=== PATIENT | female | born 1950 | race Caucasian/White ===

== ENCOUNTER 2018-05-26 14:53 | Inpatient (IN) | payer MEDICARE, OTHER ==
[~2018-05-26] VITALS: Ht 152.4 cm; Wt 68.3 kg
[2018-05-26] MEDS ORDERED: MAG HYDROX/AL HYDROX/SIMETH 30 ML ORAL.SUSP PO PRN (15:45)
[2018-05-26] MEDS ORDERED: MAGNESIUM HYDROXIDE 2,400 MG/30 ML ORAL.SUSP. PO PRN (15:45)
[2018-05-26] MEDS ORDERED: METHYL SALICYLATE/MENTHOL TOPICAL OINTMENT 29GM TUBE. TP PRN (15:45)
[2018-05-26 16:20] VITALS: BP 114/63
[2018-05-26 16:40] VITALS: BP 109/73
[2018-05-26] MEDS ORDERED: NON FORMULARY ITEM (Menthol (Biofreeze) 118 ML) TP PRN (17:00)
[2018-05-26 17:08] LABS: BASO % 0 % (0-3); EOS # 0.1 x10^3/uL (0.0-0.7); EOS % 1 % (0-3); HEMATOCRIT 26.8 % (36.0-47.0); HEMOGLOBIN 8.3 g/dL (12.0-15.5); LYMPH # 0.8 x10^3/uL (1.0-4.8); LYMPH % 9 % (24-48); MEAN CORPUSCULAR HEMOGLOBIN 25 pg (25-35); MEAN CORPUSCULAR HGB CONC 31 g/dL (31-37); MEAN CORPUSCULAR VOLUME 81 fL (79-100); MONO # 0.7 x10^3/uL (0.0-1.1); MONO % 8 % (0-9); NEUT # 7.1 x10^3uL (1.8-7.7); NEUT % 81 % (31-73); PLATELET COUNT 415 x10^3/uL (140-400); RED BLOOD COUNT 3.32 x10^6/uL (3.50-5.40); RED CELL DISTRIBUTION WIDTH 16.9 % (11.5-14.5); WHITE BLOOD COUNT 8.7 x10^3/uL (4.0-11.0)
[2018-05-26 17:22] LABS: ALBUMIN 2.8 g/dL (3.4-5.0); ALBUMIN/GLOBULIN RATIO 0.8 (1.0-1.7); CALCIUM 8.6 mg/dL (8.5-10.1); CREATININE 0.6 mg/dL (0.6-1.0); GFR 99.7; MAGNESIUM 1.9 mg/dL (1.8-2.4); POTASSIUM 5.1 mmol/L (3.5-5.1); TOTAL BILIRUBIN 0.1 mg/dL (0.2-1.0); TOTAL PROTEIN 6.5 g/dL (6.4-8.2)
[2018-05-26] MEDS ORDERED: ONDA4TAB12 PO (17:30)
[2018-05-26] MEDS ORDERED: DIGO125T17 PO (17:30)
[2018-05-26] MEDS ORDERED: TRAZ-120 PO (17:30)
[2018-05-26] MEDS ORDERED: GUAI600T47 PO (17:30)
[2018-05-26] MEDS ORDERED: MEMA10TA PO (17:30)
[2018-05-26] MEDS ORDERED: LEVO50TA PO (17:30)
[2018-05-26] MEDS ORDERED: QUET50TA5 PO (17:30)
[2018-05-26] MEDS ORDERED: CLOP75TA PO (17:30)
[2018-05-26] MEDS ORDERED: SODI30SP NS (17:30)
[2018-05-26] MEDS ORDERED: DOCU-109 PO (17:30)
[2018-05-26] MEDS ORDERED: OMEP20TA63 PO (17:30)
[2018-05-26] MEDS ORDERED: FLUO40CA2 PO (17:30)
[2018-05-26] MEDS ORDERED: BENZ9GEL MM (17:30)
[2018-05-26] MEDS ORDERED: FLUT1DIS3 IH (17:30)
[2018-05-26] MEDS ORDERED: ASPI-630 PO (17:30)
[2018-05-26] MEDS ORDERED: VIT1CAPS12 PO (17:30)
[2018-05-26] MEDS ORDERED: MELA3TAB2 PO (17:30)
[2018-05-26] MEDS ORDERED: LORA5SOL43 PO (17:30)
[2018-05-26] MEDS ORDERED: DIVA500T2 PO (17:30)
[2018-05-26] MEDS ORDERED: GABA600T7 PO (17:30)
[2018-05-26] MEDS ORDERED: MENT118G TP (17:30)
[2018-05-26] MEDS ORDERED: LOPE2CAP PO (17:30)
[2018-05-26] MEDS ORDERED: CLON0.5T11 PO (17:30)
[2018-05-26] MEDS ORDERED: ATOR10TA60 PO (17:30)
[2018-05-26] MEDS ORDERED: FURO20TA3 PO (17:30)
[2018-05-26] MEDS ORDERED: TIOT4MIS5 IH (17:30)
[2018-05-26] MEDS ORDERED: DONE5TAB56 PO (17:30)
[2018-05-26] MEDS ORDERED: DOCUSATE SODIUM 100 MG CAPSULE PO PRN (17:45)
[2018-05-26] MEDS ORDERED: LOPERAMIDE 2 MG CAPSULE PO PRN (17:45)
[2018-05-26 17:49] LABS: VAL ACID 28 mcg/mL (50-100)
[2018-05-26 17:50] LABS: DIG 0.8 ng/dL (0.9-2.0)
[2018-05-26] MEDS ORDERED: MELATONIN 3 MG TABLET PO PRN (18:00)
[2018-05-26] MEDS ORDERED: ONDANSETRON ODT 4 MG TAB.RAPDIS PO PRN (18:00)
[2018-05-26] MEDS ORDERED: BENZOCAINE 20% ORAL GEL 11.9GM TUBE. MM PRN (18:15)
[2018-05-26] MEDS: BUDESONIDE 0.5 MG/2 ML NEBU NEB SCH (20:18)
[2018-05-26] MEDS: IPRATRPIUM/ALBUTEROL 0.5/2.5MG 3 ML NEBU. NEB SCH (20:18)
[2018-05-26] MEDS: DONEPEZIL HCL 5 MG TABLET. PO SCH (20:46)
[2018-05-26] MEDS: ATORVASTATIN CALCIUM 10 MG TABLET. PO SCH (20:46)
[2018-05-26] MEDS: DIVALPROEX SODIUM 250 MG TABLET.DR. PO SCH (20:46)
[2018-05-26] MEDS: traZODone 50 MG TABLET. PO SCH (20:46)
[2018-05-26] MEDS: QUEtiapine 50 MG TABLET. PO SCH (20:46)
[2018-05-26] MEDS: GABAPENTIN 300 MG CAPSULE. PO SCH (20:46)
[2018-05-26] MEDS: clonazePAM 0.5 MG TABLET PO SCH (20:47)
[2018-05-26] MEDS ORDERED: NON FORMULARY ITEM (Fluticasone/Salmeterol (Advair 250-50 Diskus) 1 EACH) IH SCH (21:00)
--- NOTE | 2018-05-26 22:49 | PDOC ---
Exam Note: Efren Note: Please also refer to the separate dictated note~for this date of service dictated separately. Discussed the patient with Nursing staff reviewed the chart.~Reviewed interim history and current functioning. Reviewed vital signs,~ Labs/ Radiology~and current medications noted below. Continue current treatment with the changes noted in the dictated addendum note Assessment: Vital Signs: Vital Signs Date Time Temp Pulse Resp B/P (MAP) Pulse Ox O2 Delivery O2 Flow Rate FiO2 05/26/18 20:24 99 Nasal Cannula 2.0 05/26/18 16:40 98.6 74 21 109/73 (85) Labs: Laboratory Tests Test 05/26/18 16:50 05/26/18 16:55 White Blood Count 8.7 x10^3/uL (4.0-11.0) Red Blood Count 3.32 x10^6/uL (3.50-5.40) L Hemoglobin 8.3 g/dL (12.0-15.5) L Hematocrit 26.8 % (36.0-47.0) L Mean Corpuscular Volume 81 fL (79-100) Mean Corpuscular Hemoglobin 25 pg (25-35) Mean Corpuscular Hemoglobin Concent 31 g/dL (31-37) Red Cell Distribution Width 16.9 % (11.5-14.5) H Platelet Count 415 x10^3/uL (140-400) H Neutrophils (%) (Auto) 81 % (31-73) H Lymphocytes (%) (Auto) 9 % (24-48) L Monocytes (%) (Auto) 8 % (0-9) Eosinophils (%) (Auto) 1 % (0-3) Basophils (%) (Auto) 0 % (0-3) Neutrophils # (Auto) 7.1 x10^3uL (1.8-7.7) Lymphocytes # (Auto) 0.8 x10^3/uL (1.0-4.8) L Monocytes # (Auto) 0.7 x10^3/uL (0.0-1.1) Eosinophils # (Auto) 0.1 x10^3/uL (0.0-0.7) Basophils # (Auto) 0.0 x10^3/uL (0.0-0.2) Sodium Level 138 mmol/L (136-145) Potassium Level 5.1 mmol/L (3.5-5.1) Chloride Level 99 mmol/L (98-107) Carbon Dioxide Level 33 mmol/L (21-32) H Anion Gap 6 (6-14) Blood Urea Nitrogen 26 mg/dL (7-20) H Creatinine 0.6 mg/dL (0.6-1.0) Estimated GFR (Cockcroft-Gault) 99.7 BUN/Creatinine Ratio 43 (6-20) H Glucose Level 105 mg/dL (70-99) H Calcium Level 8.6 mg/dL (8.5-10.1) Magnesium Level 1.9 mg/dL (1.8-2.4) Total Bilirubin 0.1 mg/dL (0.2-1.0) L Aspartate Amino Transferase (AST) 13 U/L (15-37) L Alanine Aminotransferase (ALT) 21 U/L (14-59) Alkaline Phosphatase 115 U/L (46-116) Total Protein 6.5 g/dL (6.4-8.2) Albumin 2.8 g/dL (3.4-5.0) L Albumin/Globulin Ratio 0.8 (1.0-1.7) L Digoxin Level 0.8 ng/dL (0.9-2.0) L Digoxin Last Dose Date 05/26/2018 Digoxin Last Dose Time 1000 Valproic Acid Level 28 mcg/mL (50-100) L Valproic Acid Last Dose Date 05/26/2018 Valproic Acid Last Dose Time 0949 Current Medications: Meds: Current Medications Acetaminophen (Tylenol) 650 mg PRN Q6HRS PRN PO PAIN / TEMP; Start 05/26/18 at 15:45 Multi-Ingredient Ointment (Analgesic [place]) 1 elvin PRN QID PRN TP MUSCLE PAIN; Start 05/26/18 at 15:45 Al Hydroxide/Mg Hydroxide (Mylanta Plus Xs) 15 ml PRN AFTMEALHC PRN PO DYSPEPSIA; Start 05/26/18 at 15:45 Magnesium Hydroxide (Milk Of Magnesia) 2,400 mg PRN QHS PRN PO CONSTIPATION; Start 05/26/18 at 15:45 Clonazepam (KlonoPIN) 0.5 mg TID PO Last administered on 05/26/18at 20:47; Start 05/26/18 at 21:00 Clopidogrel Bisulfate (Plavix) 75 mg DAILY PO ; Start 05/27/18 at 09:00 Digoxin (Lanoxin) 125 mcg DAILY PO ; Start 05/27/18 at 09:00 Furosemide (Lasix) 20 mg DAILY PO ; Start 05/27/18 at 09:00 Guaifenesin (Mucinex Er) 600 mg BID PO Last administered on 05/26/18at 20:46; Start 05/26/18 at 21:00 Aspirin (Children'S Aspirin) 162 mg DAILYWBKFT PO ; Start 05/27/18 at 08:00 Atorvastatin Calcium (Lipitor) 10 mg QHS PO Last administered on 05/26/18at 20: 46; Start 05/26/18 at 21:00 Benzocaine (Ora-Jel Maximum) 1 elvin PRN Q4HRS PRN MM MOUTHL PAIN; Start at 18:15 Divalproex Sodium (Depakote) 250 mg BID PO Last administered on 05/26/18at 20:46 ; Start 05/26/18 at 21:00 Docusate Sodium (Colace) 100 mg PRN BID PRN PO CONSTIPATION; Start 05/26/18 at 17:45 Donepezil HCl (Aricept) 5 mg QHS PO Last administered on 05/26/18at 20:46; Start 05/26/18 at 21:00 Fluoxetine HCl (PROzac) 40 mg DAILY PO ; Start 05/27/18 at 09:00 Non-Formulary Medication (Fluticasone/ Salmeterol (Advair 250-50 Diskus)) 1 each Q12HR IH ; Start 05/26/18 at 21:00; Status UNV Gabapentin (Neurontin) 300 mg BID PO Last administered on 05/26/18at 20:46; Start 05/26/18 at 21:00 Levothyroxine Sodium (Synthroid) 50 mcg DAILY06 PO ; Start 05/27/18 at 06:00 Loperamide HCl (Imodium) 2 mg PRN Q6HRS PRN PO DIARRHEA; Start 05/26/18 at 17: 45 Cetirizine HCl (ZyrTEC) 5 mg DAILY PO ; Start 05/27/18 at 09:00 Melatonin 6 mg PRN QHS PRN PO INSOMNIA; Start 05/26/18 at 18:00 Memantine (Namenda) 10 mg DAILY PO ; Start 05/27/18 at 09:00 Non-Formulary Medication (Menthol (Biofreeze)) 118 ml PRN BID PRN TP MUSCLE PAIN; Start 05/26/18 at 17:00; Status UNV Pantoprazole Sodium (Protonix) 40 mg DAILYAC PO ; Start 05/27/18 at 07:30 Ondansetron HCl (Zofran Odt) 4 mg PRN TID PRN PO NAUSEA; Start 05/26/18 at 18: 00 Quetiapine Fumarate (SEROquel) 50 mg HS PO Last administered on 05/26/18at 20:46 ; Start 05/26/18 at 21:00 Sodium Chloride (Saline Mist Nasal) 1 elvin PRN TID PRN NS NASAL CONGESTION; Start 05/26/18 at 18:00 Non-Formulary Medication (Tiotropium [place] (Spiriva Respimat)) 1.25 mcg DAILY IH ; Start 05/27/18 at 09:00; Status UNV Trazodone HCl (Desyrel) 50 mg HS PO Last administered on 05/26/18at 20:46; Start 05/26/18 at 21:00 Multivitamins/ Minerals (I-Nba) 1 tab DAILY PO ; Start 05/27/18 at 09:00 Albuterol/ Ipratropium (Duoneb) 3 ml RTQID NEB Last administered on 05/26/18at 20:18; Start 05/26/18 at 20:00 Budesonide (Pulmicort) 0.5 mg RTBID NEB Last administered on 05/26/18at 20:18; Start 05/26/18 at 20:00 Albuterol Sulfate (Ventolin) 2.5 mg PRN Q6HRS PRN NEB SHORTNESS OF BREATH; Start 05/26/18 at 18:15 Active Scripts Active Reported Trazodone Hcl 50 Mg Tablet 50 Mg PO QHS Spiriva Respimat (Tiotropium [place]) 4 Gm Mist.inhal 1.25 Mcg IH DAILY Saline Nasal [place] (Sodium Chloride) 30 Ml [place] 1 Spr NS PRN TID PRN Seroquel (Quetiapine Fumarate) 50 Mg Tablet 50 Mg PO QHS Preservision Areds Softgel (Vit A/Vit C/Vit E/Zinc/Copper) 1 Each Capsule 1 Each PO BID Ondansetron Odt (Ondansetron) 4 Mg Tab.rapdis 4 Mg PO PRN TID PRN Prilosec Otc (Omeprazole Magnesium) 20 Mg Tablet.dr 20 Mg PO DAILY06 Loratadine 5 Mg/5 Ml Solution 5 Mg PO DAILY Loperamide (Loperamide Hcl) 2 Mg Capsule 2 Mg PO PRN Q6HRS PRN Synthroid (Levothyroxine Sodium) 50 Mcg Tablet 50 Mcg PO DAILY06 Mucinex (Guaifenesin) 600 Mg Tablet.er 600 Mg PO BID Gabapentin 600 Mg Tablet 300 Mg PO BID Furosemide 20 Mg Tablet 20 Mg PO DAILY Advair 250-50 Diskus (Fluticasone/Salmeterol) 1 Each Disk.w.dev 1 Each IH Q12HR Aricept (Donepezil Hcl) 5 Mg Tablet 5 Mg PO QHS Colace (Docusate Sodium) 100 Mg Capsule 100 Mg PO PRN BID PRN Depakote (Divalproex Sodium) 500 Mg Tablet.dr 250 Mg PO BID Digoxin 125 Mcg Tablet 125 Mcg PO DAILY Clopidogrel (Clopidogrel Bisulfate) 75 Mg Tablet 75 Mg PO DAILY Clonazepam 0.5 Mg Tablet 0.5 Mg PO TID Atorvastatin Calcium 10 Mg Tablet 10 Mg PO QHS Aspirin 81 Mg Tab.chew 162 Mg PO DAILY Anbesol (Benzocaine) 9 Gm Gel..gram. 9 Gm MM PRN Q4HRS PRN Namenda (Memantine Hcl) 10 Mg Tablet 10 Mg PO DAILY Fluoxetine Hcl 40 Mg Capsule 40 Mg PO DAILY Biofreeze (Menthol) 118 Ml Gel..ml. 118 Ml TP PRN BID PRN Melatonin 3 Mg Tablet 5 Mg PO PRN QHS PRN I have reviewed the current psychotropics carefully including drug interactions. Risk benefit ratio favors no change other than as noted in my dictated progress note. Diagnosis: Problems: (1) Anxiety disorder (2) Bipolar affective, mixed (3) Bipolar affective, mixed, sev w/ psych (4) Impulse control disorder (5) Major depressive disorder, recurrent episode LISA KEY MD May 26, 2018 22:49
[2018-05-27 04:08] LABS: THYROXINE 6.1 ug/dL (4.5-12.0)
[2018-05-27 05:12] LABS: HEMOGLOBIN A1C 5.4 % (4.8-5.6)
[2018-05-27] MEDS: IPRATRPIUM/ALBUTEROL 0.5/2.5MG 3 ML NEBU. NEB SCH ×4 (05:34→20:40)
[2018-05-27] MEDS: LEVOTHYROXINE 50 MCG TABLET PO SCH (05:48)
[2018-05-27] MEDS: ACETAMINOPHEN 325 MG TABLET PO PRN ×3 (05:52→20:41)
[2018-05-27 06:12] VITALS: BP 108/71
[2018-05-27] MEDS: SODIUM CHLORIDE 0.65% NASAL SPRAY 45ML BOTTLE. NS PRN ×2 (08:45→20:41)
[2018-05-27] MEDS: PANTOPRAZOLE 40 MG TABLET. PO SCH (08:50)
[2018-05-27] MEDS: ASPIRIN 81 MG TAB.CHEW PO SCH ×2 (08:50→10:07)
[2018-05-27] MEDS ORDERED: TIOTROPIUM BROMIDE 1.25 MCG IH SCH (09:00)
[2018-05-27] MEDS: GABAPENTIN 300 MG CAPSULE. PO SCH ×2 (09:00→20:02)
[2018-05-27] MEDS: clonazePAM 0.5 MG TABLET PO SCH ×3 (09:00→20:02)
[2018-05-27] MEDS: DIVALPROEX SODIUM 250 MG TABLET.DR. PO SCH ×2 (10:06→20:01)
[2018-05-27] MEDS: DIGOXIN 125 MCG TABLET PO SCH (10:06)
[2018-05-27] MEDS: CLOPIDOGREL BISULFATE 75 MG TABLET PO SCH (10:06)
[2018-05-27] MEDS: CETIRIZINE HCL 10 MG TABLET PO SCH (10:07)
[2018-05-27] MEDS: MULTIVITAMIN I-VITE TABLET. PO SCH (10:07)
[2018-05-27] MEDS: FUROSEMIDE 20 MG TABLET PO SCH (10:07)
[2018-05-27] MEDS: MEMANTINE 10 MG TABLET. PO SCH (10:07)
[2018-05-27] MEDS: FLUoxetine HCL 20 MG CAPSULE PO SCH (10:07)
[2018-05-27] MEDS: BUDESONIDE 0.5 MG/2 ML NEBU NEB SCH ×2 (11:26→20:40)
[2018-05-27] MEDS: ALBUTEROL SULFATE 2.5 MG/3 ML NEBU. NEB PRN (11:26)
[2018-05-27 13:45] LABS: THYROID STIM HORMONE (TSH) 2.074 uIU/mL (0.358-3.740)
[2018-05-27 16:03] VITALS: BP 115/78
[2018-05-27 17:45] LABS: BILIRUBIN,URINE NEG (NEG); CLARITY,URINE CLOUDY; COLOR,URINE AMBER; GLUCOSE,URINE NEG (NEG); NITRITE,URINE NEG (NEG); UROBILINOGEN,URINE 0.2 mg/dL (0.2 mg/dL)
[2018-05-27 17:46] LABS: BACTERIA,URINE 0 /HPF (0-FEW); RBC,URINE TNTC /HPF (0-2); SQUAMOUS EPITHELIAL CELL,UR FEW /LPF
--- NOTE | 2018-05-27 18:44 | HP ---
ADMIT DATE: 05/26/2018 PSYCHIATRIC ADMISSION HISTORY/EVALUATION This late entry 05/26/2018 covers elements not covered in my initial note. I met with the patient in the evening of 05/26/2018 around 7:00 p.m. Discussed with nursing staff, reviewed the chart. IDENTIFYING DATA: The patient is a 68-year-old female referred to us from [facility] where she was on the postsurgical floor since 05/17/2018. She has been increasingly anxious, having suicidal ideation. She felt helpless, hopeless, worthless; no one was listening to her. She had failed outpatient psychiatric interventions and due to suicidal ideation was deemed a potential danger to herself, referred for inpatient psychiatric stabilization and admitted by Travisfito Merritt, her half-brother, CRISTOBAL. CHIEF COMPLAINT: "I have a lot of anxiety. I have bipolar disorder diagnosed about 15 years ago." HISTORY OF PRESENT ILLNESS: The patient reportedly has a history of bipolar disorder and marked exacerbation of anxiety recently. She had been living at [facility] and felt the staff there was not providing adequate care for her, not listening to "me." She additionally states she has PTSD and obsessive compulsive disorder. She complains of sleep and appetite disturbance. No clear psychotic symptoms, homicidal ideation. She does admit to history of mood swings and some memory deficits. PAST PSYCHIATRIC HISTORY: As noted above. PAST MEDICAL HISTORY: Positive for atrial fibrillation, anemia, asthma, chronic kidney disease stage 3, COPD, history of CVA, hypertension, sleep apnea, PTSD. ALLERGIES: CEPHALOSPORINS, DEMEROL, KEFLEX, METOCLOPRAMIDE, PHENERGAN, FENTANYL. CODE STATUS: FULL CODE. DIET: Mechanical soft, ambulates in wheelchair. UA is pending results. CURRENT PSYCHOTROPICS: Prozac 40 mg a day, melatonin 6 mg at bedtime p.r.n., Namenda 10 mg a day, Klonopin 0.5 mg t.i.d., Depakote 250 b.i.d., Aricept 5 mg a day, Neurontin 300 b.i.d., Seroquel 50 mg at bedtime, trazodone 50 mg at bedtime. FAMILY HISTORY: Noncontributory. SOCIAL HISTORY: No history of alcohol, drug abuse, physical, sexual or elder abuse. She is not known to be a perpetrator. REACTION TO HOSPITALIZATION: The patient accepting of this. ASSETS: Supportive family, stable living at the assisted living. MENTAL STATUS EXAM: The patient was seen individually in the evening of 05/26/2018. She is oriented to herself and situation. She is quite anxious, restless, somewhat tremulous. Speech coherent, has some latency. Abstraction fair, computation impaired, language function intact, attention span short. Mood and affect depressed, anxious, labile. She denies active suicidal ideation. She does have some short-term memory deficits. IMPRESSION: Probable bipolar 1 disorder, depressed; anxiety disorder, unspecified; cognitive disorder, unspecified; history of post-traumatic stress disorder. Rest diagnoses as noted above. PLAN: Admit to geropsychiatry unit at [facility]. I will see the patient daily individually from a psychiatric standpoint, medical followup with Dr. Boateng. Continue the patient on her current psychotropics. We will get past psychiatric records, observe baseline, then make further adjustments as clinically indicated. Estimated length of stay 10-12 days. DISPOSITION PLAN: Possibly back to the assisted living. MAN Amberly KEY MD DR: ADELFO/diana JOB#: [id number] / [id number]
[2018-05-27] MEDS: DONEPEZIL HCL 5 MG TABLET. PO SCH (20:01)
[2018-05-27] MEDS: QUEtiapine 50 MG TABLET. PO SCH (20:01)
[2018-05-27] MEDS: traZODone 50 MG TABLET. PO SCH (20:01)
[2018-05-27] MEDS: ATORVASTATIN CALCIUM 10 MG TABLET. PO SCH (20:02)
--- NOTE | 2018-05-27 22:34 | PDOC ---
Exam Note: Efren Note: Please also refer to the separate dictated note~for this date of service dictated separately.~Patient seen individually. Discussed the patient with Nursing staff reviewed the chart.~Reviewed interim history and current functioning. Reviewed vital signs,~Labs/ Radiology~and current medications noted below. Continue current treatment with the changes noted in the dictated addendum note Assessment: Vital Signs: Vital Signs Date Time Temp Pulse Resp B/P (MAP) Pulse Ox O2 Delivery O2 Flow Rate FiO2 05/27/18 16:45 100 Nasal Cannula 2.0 05/27/18 16:03 97.7 90 20 115/78 (90) I&O Intake and Output 05/27/18 07:00 Intake Total 360 ml Balance 360 ml Intake Oral 360 ml Labs: Laboratory Tests Test 05/27/18 16:50 Urine Collection Type Unknown Urine Color Kay Urine Clarity Cloudy Urine pH 7.0 Urine Specific [place] 1.025 Urine Protein >100 mg/dl (NEG-TRACE) Urine Glucose (UA) Neg mg/dL (NEG) Urine Ketones (Stick) Neg mg/dL (NEG) Urine Blood Large (NEG) Urine Nitrite Neg (NEG) Urine Bilirubin Neg (NEG) Urine Urobilinogen Dipstick 0.2 mg/dL (0.2 mg/dL) Urine Leukocyte Esterase Neg (NEG) Urine RBC Tntc /HPF (0-2) Urine WBC 5-10 /HPF (0-4) Urine Squamous Epithelial Cells Few /LPF Urine Bacteria 0 /HPF (0-FEW) Current Medications: Meds: Current Medications Acetaminophen (Tylenol) 650 mg PRN Q6HRS PRN PO PAIN / TEMP Last administered on 05/27/18at 20:41; Start 05/26/18 at 15:45 Multi-Ingredient Ointment (Analgesic [place]) 1 elvin PRN QID PRN TP MUSCLE PAIN; Start 05/26/18 at 15:45 Al Hydroxide/Mg Hydroxide (Mylanta Plus Xs) 15 ml PRN AFTMEALHC PRN PO DYSPEPSIA; Start 05/26/18 at 15:45 Magnesium Hydroxide (Milk Of Magnesia) 2,400 mg PRN QHS PRN PO CONSTIPATION; Start 05/26/18 at 15:45 Clonazepam (KlonoPIN) 0.5 mg TID PO Last administered on 05/27/18at 20:02; Start 05/26/18 at 21:00 Clopidogrel Bisulfate (Plavix) 75 mg DAILY PO Last administered on 05/27/18 10 :06; Start 05/27/18 at 09:00 Digoxin (Lanoxin) 125 mcg DAILY PO Last administered on 05/27/18 10:06; Start 05/27/18 at 09:00 Furosemide (Lasix) 20 mg DAILY PO Last administered on 05/27/18 10:07; Start 05/27/18 at 09:00 Guaifenesin (Mucinex Er) 600 mg BID PO Last administered on 05/27/18 20:01; Start 05/26/18 at 21:00 Aspirin (Children'S Aspirin) 162 mg DAILYWBKFT PO Last administered on 10:07; Start 05/27/18 at 08:00 Atorvastatin Calcium (Lipitor) 10 mg QHS PO Last administered on 05/27/18 20: 02; Start 05/26/18 at 21:00 Benzocaine (Ora-Jel Maximum) 1 elvin PRN Q4HRS PRN MM MOUTHL PAIN; Start at 18:15 Divalproex Sodium (Depakote) 250 mg BID PO Last administered on 05/27/18 20:01 ; Start 05/26/18 at 21:00 Docusate Sodium (Colace) 100 mg PRN BID PRN PO CONSTIPATION; Start 05/26/18 at 17:45 Donepezil HCl (Aricept) 5 mg QHS PO Last administered on 05/27/18 20:01; Start 05/26/18 at 21:00 Fluoxetine HCl (PROzac) 40 mg DAILY PO Last administered on 05/27/18 10:07; Start 05/27/18 at 09:00 Non-Formulary Medication (Fluticasone/ Salmeterol (Advair 250-50 Diskus)) 1 each Q12HR IH ; Start 05/26/18 at 21:00; Status UNV Gabapentin (Neurontin) 300 mg BID PO Last administered on 05/27/18at 20:02; Start 05/26/18 at 21:00 Levothyroxine Sodium (Synthroid) 50 mcg DAILY06 PO Last administered on at 05:48; Start 05/27/18 at 06:00 Loperamide HCl (Imodium) 2 mg PRN Q6HRS PRN PO DIARRHEA; Start 05/26/18 at 17: 45 Cetirizine HCl (ZyrTEC) 5 mg DAILY PO Last administered on 05/27/18 10:07; Start 05/27/18 at 09:00 Melatonin 6 mg PRN QHS PRN PO INSOMNIA; Start 05/26/18 at 18:00 Memantine (Namenda) 10 mg DAILY PO Last administered on 05/27/18 10:07; Start 05/27/18 at 09:00 Non-Formulary Medication (Menthol (Biofreeze)) 118 ml PRN BID PRN TP MUSCLE PAIN; Start 05/26/18 at 17:00; Status UNV Pantoprazole Sodium (Protonix) 40 mg DAILYAC PO Last administered on 05/27/18 08:50; Start 05/27/18 at 07:30 Ondansetron HCl (Zofran Odt) 4 mg PRN TID PRN PO NAUSEA; Start 05/26/18 at 18: 00 Quetiapine Fumarate (SEROquel) 50 mg HS PO Last administered on 05/27/18 20:01 ; Start 05/26/18 at 21:00 Sodium Chloride (Saline Mist Nasal) 1 elvin PRN TID PRN NS NASAL CONGESTION Last administered on 05/27/18 20:41; Start 05/26/18 at 18:00 Non-Formulary Medication (Tiotropium [place] (Spiriva Respimat)) 1.25 mcg DAILY IH ; Start 05/27/18 at 09:00; Status UNV Trazodone HCl (Desyrel) 50 mg HS PO Last administered on 05/27/18 20:01; Start 05/26/18 at 21:00 Multivitamins/ Minerals (I-Nba) 1 tab DAILY PO Last administered on 05/27/18 10:07; Start 05/27/18 at 09:00 Albuterol/ Ipratropium (Duoneb) 3 ml RTQID NEB Last administered on 05/27/18 16:45; Start 05/26/18 at 20:00 Budesonide (Pulmicort) 0.5 mg RTBID NEB Last administered on 05/27/18 11:26; Start 05/26/18 at 20:00 Albuterol Sulfate (Ventolin) 2.5 mg PRN Q6HRS PRN NEB SHORTNESS OF BREATH; Start 05/26/18 at 18:15 Active Scripts Active Reported Trazodone Hcl 50 Mg Tablet 50 Mg PO QHS Spiriva Respimat (Tiotropium [place]) 4 Gm Mist.inhal 1.25 Mcg IH DAILY Saline Nasal [place] (Sodium Chloride) 30 Ml [place] 1 Spr NS PRN TID PRN Seroquel (Quetiapine Fumarate) 50 Mg Tablet 50 Mg PO QHS Preservision Areds Softgel (Vit A/Vit C/Vit E/Zinc/Copper) 1 Each Capsule 1 Each PO BID Ondansetron Odt (Ondansetron) 4 Mg Tab.rapdis 4 Mg PO PRN TID PRN Prilosec Otc (Omeprazole Magnesium) 20 Mg Tablet.dr 20 Mg PO DAILY06 Loratadine 5 Mg/5 Ml Solution 5 Mg PO DAILY Loperamide (Loperamide Hcl) 2 Mg Capsule 2 Mg PO PRN Q6HRS PRN Synthroid (Levothyroxine Sodium) 50 Mcg Tablet 50 Mcg PO DAILY06 Mucinex (Guaifenesin) 600 Mg Tablet.er 600 Mg PO BID Gabapentin 600 Mg Tablet 300 Mg PO BID Furosemide 20 Mg Tablet 20 Mg PO DAILY Advair 250-50 Diskus (Fluticasone/Salmeterol) 1 Each Disk.w.dev 1 Each IH Q12HR Aricept (Donepezil Hcl) 5 Mg Tablet 5 Mg PO QHS Colace (Docusate Sodium) 100 Mg Capsule 100 Mg PO PRN BID PRN Depakote (Divalproex Sodium) 500 Mg Tablet.dr 250 Mg PO BID Digoxin 125 Mcg Tablet 125 Mcg PO DAILY Clopidogrel (Clopidogrel Bisulfate) 75 Mg Tablet 75 Mg PO DAILY Clonazepam 0.5 Mg Tablet 0.5 Mg PO TID Atorvastatin Calcium 10 Mg Tablet 10 Mg PO QHS Aspirin 81 Mg Tab.chew 162 Mg PO DAILY Anbesol (Benzocaine) 9 Gm Gel..gram. 9 Gm MM PRN Q4HRS PRN Namenda (Memantine Hcl) 10 Mg Tablet 10 Mg PO DAILY Fluoxetine Hcl 40 Mg Capsule 40 Mg PO DAILY Biofreeze (Menthol) 118 Ml Gel..ml. 118 Ml TP PRN BID PRN Melatonin 3 Mg Tablet 5 Mg PO PRN QHS PRN I have reviewed the current psychotropics carefully including drug interactions. Risk benefit ratio favors no change other than as noted in my dictated progress note. Diagnosis: Problems: (1) Anxiety disorder (2) Bipolar affective, mixed (3) Bipolar affective, mixed, sev w/ psych (4) Impulse control disorder (5) Major depressive disorder, recurrent episode LISA KEY MD May 27, 2018 22:34
--- NOTE | 2018-05-28 00:08 | CONS ---
DATE OF CONSULTATION: 05/27/2018 REASON FOR CONSULTATION: Medical management. HISTORY OF PRESENT ILLNESS: The patient is a 68-year-old female patient, a resident at [facility]isted [facility] Facility in [place], who was admitted [facility] on the account of being markedly anxious, has suicidal ideation, feels like her Assisted Living Facility is not listening to her, depressed and apparently the psychotropic medication was adjusted without much success, and therefore, was admitted to [facility] for inpatient psychiatric stabilization. PAST PSYCHIATRIC HISTORY: Significant for bipolar disorder, generalized anxiety disorder. Medically, she has a multitude of medical problems including an episode of severe spontaneous epistaxis with acute blood loss anemia that required admission to the ICU and treatment with tranexamic acid and blood transfusion. She developed what seems to be angioneurotic edema with acute hypoxic respiratory failure requiring intubation and mechanical ventilation. The patient is also known to have chronic diastolic congestive heart failure, chronic kidney disease stage 3, chronic obstructive pulmonary disease, hypertension, gastroesophageal reflux disease, history of stroke without residual deficit. She has mixed hyperlipidemia, morbid obesity, obstructive sleep apnea, paroxysmal atrial fibrillation, primary osteoarthritis of the right knee, posttraumatic stress disorder, stress-induced cardiomyopathy and dysphagia. PAST SURGICAL HISTORY: Significant for gastric bypass surgery. She also has appendectomy, cholecystectomy and cardiac catheterization. FAMILY HISTORY: Positive for COPD in her mother, heart disease in her father, peripheral arterial disease in her father. SOCIAL HISTORY: The patient is single, never . She quit smoking about 19 years ago. She has never used smokeless tobacco. She does not drink alcohol or use any recreational drugs. ALLERGIES: SHE IS ALLERGIC TO CEPHALOSPORINS, CEPHALEXIN, FENTANYL, MEPERIDINE, METOCLOPRAMIDE AND PROMETHAZINE. MEDICATIONS: She is currently on following medications: She is on loratadine 5 mg/5 mL solution once a day, Aricept 5 mg at bedtime, Spiriva Respimat 1.5 mcg inhalation once a day, Plavix 75 mg once a day, digoxin 125 mcg once a day, atorvastatin calcium 10 mg daily at bedtime, aspirin 81 mg once a day, clonazepam 0.5 mg 3 times a day, divalproex sodium 500 mg twice a day, gabapentin 300 mg twice a day, fluoxetine 40 mg daily, trazodone 50 mg at bedtime, quetiapine fumarate for Seroquel 50 mg at bedtime, Namenda 10 mg daily, furosemide 20 mg daily, Advair Diskus 250/50 one inhalation twice a day, guaifenesin for Mucinex 600 mg twice a day, benzocaine applied topically every 4 hours, sodium chloride for saline nasal spray one spray to each nostril 3 times a day. She is on loperamide 2 mg every 6 hours as needed, docusate sodium 100 mg twice a day as needed, ondansetron 4 mg 3 times a day as needed, omeprazole for Prilosec OTC 20 mg once a day, levothyroxine sodium 50 mcg daily, melatonin 3 mg at bedtime and PreserVision AREDS Soft Gel one twice a day. PHYSICAL EXAMINATION: GENERAL: On examining her, she was sitting comfortably in her wheelchair, in no apparent respiratory distress. She was pale, but no jaundice or cyanosis. No lymphadenopathy, no thyromegaly. No jugular venous distention. No lower limb edema. VITAL SIGNS: Her heart rate was 90, blood pressure 115/78, temperature was 97.7, respiratory rate 20 and oxygen saturation was 97% on 2 liters of oxygen. HEAD, EYES, EARS, NOSE AND THROAT: Showed normocephalic, atraumatic. NECK: Supple. HEART: Showed normal first and second heart sounds with no gallop or murmur. CHEST: Clear to auscultation. No crepitation or rhonchi. ABDOMEN: Distended, soft, nontender. NEUROLOGIC: She was awake, alert, responding appropriately. All cranial nerves intact. She moves extremities without difficulty; however, she is mostly bedbound, wheelchair bound and walk for short distances only. LABORATORY DATA: Showed that her white cell count was 8700, hemoglobin 8.3, hematocrit 26.8, MCV 81 and platelet count of 415,000. Serum sodium was 138, potassium 5.1, chloride 99, bicarbonate 33, anion gap of 6, BUN 26, creatinine 0.6. Estimated GFR was 99 mL per minute. Her glucose 105, calcium was 8.6, magnesium was 1.9. Her serum iron is low at 17. Total iron binding capacity was high at 444 and percent saturation was 4. Her total bilirubin, AST, ALT, alkaline phosphatase were normal. Total protein was 6.5, albumin was 2.8. Her serum triglycerides was 151, total cholesterol 152, LDL cholesterol was 61, VLDL was 30, non-HDL cholesterol was 91, HDL cholesterol was 61 and the ratio was 2 and TSH and total T4 and free T4 were normal. Her urinalysis was unremarkable and showed that the urine was bryan, cloudy with a pH of 7, specific gravity of 1.025, there is more than 100 mg of protein, negative for glucose, ketones, large amount of blood, negative for nitrite and leukocyte esterase. There is too numerous to count rbc's, 5-10 wbc's and no bacteria and toxic screen showed that her digoxin was 0.8, which is well within normal range and valproic acid was low at 28. ASSESSMENT AND PLAN: In summary, this is a 68-year-old female patient, who was admitted on account of being extremely anxious, who has suicidal ideation, feels like her Assisted Living Facility is not listening to her, very depressed, has had medication adjustment done without much improvement. Medically, she has a multitude of medical problems including atrial fibrillation, anemia, bronchial asthma, chronic kidney disease, chronic obstructive pulmonary disease, hypertension, sleep apnea. Her lab work showed that she has severe iron deficiency anemia. Her hemoglobin was 8, hematocrit 26, probably because she lost large amount of blood during an episode of epistaxis. Her serum iron is low, total iron binding capacity high and TIBC was low, all consistent with iron deficiency anemia. She has also protein calorie malnutrition with serum albumin only 2.8 g/dL. My plan is to start her on serum iron and ascorbic acid. Unfortunately, she is on Plavix and aspirin, both of them are obviously can induce GI bleeding compounding the fact that she has lost a large amount of blood during an episode of epistaxis. I will check her stool for occult blood and will need some more information to know why she needs both the aspirin and Plavix as her medical problem did not show any evidence of coronary artery disease or stent deployment, although she does have a history of cerebrovascular accident without any residual deficit. Thank you Dr. Batista for allowing me to participate in the care of this patient. DELILAH LANCASTER MD DR: GEOFF/diana JOB#: [id number] / [id number]
[2018-05-28] MEDS: LEVOTHYROXINE 50 MCG TABLET PO SCH (05:45)
[2018-05-28 06:16] VITALS: BP 92/55
[2018-05-28] MEDS: IPRATRPIUM/ALBUTEROL 0.5/2.5MG 3 ML NEBU. NEB SCH ×4 (08:00→21:09)
[2018-05-28] MEDS: FUROSEMIDE 20 MG TABLET PO SCH (08:01)
[2018-05-28] MEDS: MEMANTINE 10 MG TABLET. PO SCH (08:01)
[2018-05-28] MEDS: CLOPIDOGREL BISULFATE 75 MG TABLET PO SCH (08:01)
[2018-05-28] MEDS: MULTIVITAMIN I-VITE TABLET. PO SCH (08:01)
[2018-05-28] MEDS: ASPIRIN 81 MG TAB.CHEW PO SCH (08:02)
[2018-05-28] MEDS: PANTOPRAZOLE 40 MG TABLET. PO SCH (08:02)
[2018-05-28] MEDS: FLUoxetine HCL 20 MG CAPSULE PO SCH (08:02)
[2018-05-28] MEDS: CETIRIZINE HCL 10 MG TABLET PO SCH (08:02)
[2018-05-28] MEDS: DIVALPROEX SODIUM 250 MG TABLET.DR. PO SCH ×2 (08:03→19:35)
[2018-05-28] MEDS: DIGOXIN 125 MCG TABLET PO SCH (08:03)
[2018-05-28] MEDS: clonazePAM 0.5 MG TABLET PO SCH ×3 (08:05→19:40)
[2018-05-28] MEDS: GABAPENTIN 300 MG CAPSULE. PO SCH ×2 (08:05→19:40)
[2018-05-28] MEDS: ACETAMINOPHEN 325 MG TABLET PO PRN ×2 (09:32→16:31)
[2018-05-28] MEDS: BUDESONIDE 0.5 MG/2 ML NEBU NEB SCH ×2 (11:30→21:09)
--- NOTE | 2018-05-28 14:05 | PN ---
DATE: 05/27/2018 PSYCHIATRIC PROGRESS NOTE This is a late entry 05/27/2018 covers elements not covered in my initial note. SUBJECTIVE: I met with the patient in the evening, staffed at a treatment team meeting with the entire team in the morning and reviewed the patient's history and progress. The patient slept 6 hours previous night. She does have some short-term cognitive deficits, but otherwise reasonably oriented. Reviewed her history, diagnosis, progress, prognosis, discharge plans. REVIEW OF SYSTEMS: Ambulation impaired, in wheelchair. No CV, , pulmonary, eye, ENT system symptoms on review. MENTAL STATUS EXAM: Oriented to herself and situation. Speech coherent, abstraction fair, computation impaired, language function intact. Attention span short. She remains quite anxious at times. LABORATORY DATA: Reviewed. IMPRESSION: Bipolar disorder, depressed; anxiety disorder, unspecified; cognitive disorder, unspecified. PLAN: Continue psychotropics from initial note. Melatonin, Prozac, Namenda, Klonopin, Depakote, Aricept, Neurontin, Seroquel, and trazodone. We will consider changing Prozac to Luvox for some of her obsessive anxiety, but give it another day and then decide. LISA KEY MD DR: ADELFO/diana JOB#: [id number] / [id number]
[2018-05-28 16:07] VITALS: BP 111/70
[2018-05-28] MEDS: ATORVASTATIN CALCIUM 10 MG TABLET. PO SCH (19:35)
[2018-05-28] MEDS: traZODone 50 MG TABLET. PO SCH (19:35)
[2018-05-28] MEDS: DONEPEZIL HCL 5 MG TABLET. PO SCH (19:35)
[2018-05-28] MEDS: QUEtiapine 50 MG TABLET. PO SCH (19:35)
[2018-05-28] MEDS: SODIUM CHLORIDE 0.65% NASAL SPRAY 45ML BOTTLE. NS PRN (19:51)
--- NOTE | 2018-05-28 22:40 | PDOC ---
Exam Note: Efren Note: Please also refer to the separate dictated note~for this date of service dictated separately.~Patient seen individually. Discussed the patient with Nursing staff reviewed the chart.~Reviewed interim history and current functioning. Reviewed vital signs,~Labs/ Radiology~and current medications noted below. Continue current treatment with the changes noted in the dictated addendum note Assessment: Vital Signs: Vital Signs Date Time Temp Pulse Resp B/P (MAP) Pulse Ox O2 Delivery O2 Flow Rate FiO2 05/28/18 20:15 96 Nasal Cannula 2.0 05/28/18 16:07 99.2 77 24 111/70 (84) I&O Intake and Output 05/28/18 07:00 Intake Total 1680 ml Balance 1680 ml Intake Oral 1680 ml Current Medications: Meds: Current Medications Acetaminophen (Tylenol) 650 mg PRN Q6HRS PRN PO PAIN / TEMP Last administered on 05/28/18at 16:31; Start 05/26/18 at 15:45 Multi-Ingredient Ointment (Analgesic [place]) 1 elvin PRN QID PRN TP MUSCLE PAIN; Start 05/26/18 at 15:45 Al Hydroxide/Mg Hydroxide (Mylanta Plus Xs) 15 ml PRN AFTMEALHC PRN PO DYSPEPSIA; Start 05/26/18 at 15:45 Magnesium Hydroxide (Milk Of Magnesia) 2,400 mg PRN QHS PRN PO CONSTIPATION; Start 05/26/18 at 15:45 Clonazepam (KlonoPIN) 0.5 mg TID PO Last administered on 05/28/18at 19:40; Start 05/26/18 at 21:00 Clopidogrel Bisulfate (Plavix) 75 mg DAILY PO Last administered on 05/28/18at 08 :01; Start 05/27/18 at 09:00 Digoxin (Lanoxin) 125 mcg DAILY PO Last administered on 05/28/18at 08:03; Start 05/27/18 at 09:00 Furosemide (Lasix) 20 mg DAILY PO Last administered on 05/28/18at 08:01; Start 05/27/18 at 09:00 Guaifenesin (Mucinex Er) 600 mg BID PO Last administered on 05/28/18at 19:35; Start 05/26/18 at 21:00 Aspirin (Children'S Aspirin) 162 mg DAILYWBKFT PO Last administered on 08:02; Start 05/27/18 at 08:00 Atorvastatin Calcium (Lipitor) 10 mg QHS PO Last administered on 05/28/18 19: 35; Start 05/26/18 at 21:00 Benzocaine (Ora-Jel Maximum) 1 elvin PRN Q4HRS PRN MM MOUTHL PAIN; Start at 18:15 Divalproex Sodium (Depakote) 250 mg BID PO Last administered on 05/28/18 19:35 ; Start 05/26/18 at 21:00 Docusate Sodium (Colace) 100 mg PRN BID PRN PO CONSTIPATION; Start 05/26/18 at 17:45 Donepezil HCl (Aricept) 5 mg QHS PO Last administered on 05/28/18 19:35; Start 05/26/18 at 21:00 Fluoxetine HCl (PROzac) 40 mg DAILY PO Last administered on 05/28/18 08:02; Start 05/27/18 at 09:00; Stop 05/28/18 at 17:13; Status DC Non-Formulary Medication (Fluticasone/ Salmeterol (Advair 250-50 Diskus)) 1 each Q12HR IH ; Start 05/26/18 at 21:00; Status UNV Gabapentin (Neurontin) 300 mg BID PO Last administered on 05/28/18 19:40; Start 05/26/18 at 21:00 Levothyroxine Sodium (Synthroid) 50 mcg DAILY06 PO Last administered on 05:45; Start 05/27/18 at 06:00 Loperamide HCl (Imodium) 2 mg PRN Q6HRS PRN PO DIARRHEA; Start 05/26/18 at 17: 45 Cetirizine HCl (ZyrTEC) 5 mg DAILY PO Last administered on 05/28/18 08:02; Start 05/27/18 at 09:00 Melatonin 6 mg PRN QHS PRN PO INSOMNIA Last administered on 05/28/18 19:40; Start 05/26/18 at 18:00 Memantine (Namenda) 10 mg DAILY PO Last administered on 05/28/18 08:01; Start 05/27/18 at 09:00 Non-Formulary Medication (Menthol (Biofreeze)) 118 ml PRN BID PRN TP MUSCLE PAIN; Start 05/26/18 at 17:00; Status UNV Pantoprazole Sodium (Protonix) 40 mg DAILYAC PO Last administered on 05/28/18at 08:02; Start 05/27/18 at 07:30 Ondansetron HCl (Zofran Odt) 4 mg PRN TID PRN PO NAUSEA; Start 05/26/18 at 18: 00 Quetiapine Fumarate (SEROquel) 50 mg HS PO Last administered on 05/28/18at 19:35 ; Start 05/26/18 at 21:00 Sodium Chloride (Saline Mist Nasal) 1 elvin PRN TID PRN NS NASAL CONGESTION Last administered on 05/28/18at 19:51; Start 05/26/18 at 18:00 Non-Formulary Medication (Tiotropium [place] (Spiriva Respimat)) 1.25 mcg DAILY IH ; Start 05/27/18 at 09:00; Status UNV Trazodone HCl (Desyrel) 50 mg HS PO Last administered on 05/28/18at 19:35; Start 05/26/18 at 21:00 Multivitamins/ Minerals (I-Nba) 1 tab DAILY PO Last administered on 05/28/18at 08:01; Start 05/27/18 at 09:00 Albuterol/ Ipratropium (Duoneb) 3 ml RTQID NEB Last administered on 05/28/18at 21:09; Start 05/26/18 at 20:00 Budesonide (Pulmicort) 0.5 mg RTBID NEB Last administered on 05/28/18at 21:09; Start 05/26/18 at 20:00 Albuterol Sulfate (Ventolin) 2.5 mg PRN Q6HRS PRN NEB SHORTNESS OF BREATH; Start 05/26/18 at 18:15 Duloxetine HCl (Cymbalta) 30 mg DAILY PO ; Start 05/29/18 at 09:00; Stop at 08:59 Duloxetine HCl (Cymbalta) 60 mg DAILY PO ; Start 06/01/18 at 09:00 Active Scripts Active Reported Trazodone Hcl 50 Mg Tablet 50 Mg PO QHS Spiriva Respimat (Tiotropium [place]) 4 Gm Mist.inhal 1.25 Mcg IH DAILY Saline Nasal [place] (Sodium Chloride) 30 Ml [place] 1 Spr NS PRN TID PRN Seroquel (Quetiapine Fumarate) 50 Mg Tablet 50 Mg PO QHS Preservision Areds Softgel (Vit A/Vit C/Vit E/Zinc/Copper) 1 Each Capsule 1 Each PO BID Ondansetron Odt (Ondansetron) 4 Mg Tab.rapdis 4 Mg PO PRN TID PRN Prilosec Otc (Omeprazole Magnesium) 20 Mg Tablet.dr 20 Mg PO DAILY06 Loratadine 5 Mg/5 Ml Solution 5 Mg PO DAILY Loperamide (Loperamide Hcl) 2 Mg Capsule 2 Mg PO PRN Q6HRS PRN Synthroid (Levothyroxine Sodium) 50 Mcg Tablet 50 Mcg PO DAILY06 Mucinex (Guaifenesin) 600 Mg Tablet.er 600 Mg PO BID Gabapentin 600 Mg Tablet 300 Mg PO BID Furosemide 20 Mg Tablet 20 Mg PO DAILY Advair 250-50 Diskus (Fluticasone/Salmeterol) 1 Each Disk.w.dev 1 Each IH Q12HR Aricept (Donepezil Hcl) 5 Mg Tablet 5 Mg PO QHS Colace (Docusate Sodium) 100 Mg Capsule 100 Mg PO PRN BID PRN Depakote (Divalproex Sodium) 500 Mg Tablet.dr 250 Mg PO BID Digoxin 125 Mcg Tablet 125 Mcg PO DAILY Clopidogrel (Clopidogrel Bisulfate) 75 Mg Tablet 75 Mg PO DAILY Clonazepam 0.5 Mg Tablet 0.5 Mg PO TID Atorvastatin Calcium 10 Mg Tablet 10 Mg PO QHS Aspirin 81 Mg Tab.chew 162 Mg PO DAILY Anbesol (Benzocaine) 9 Gm Gel..gram. 9 Gm MM PRN Q4HRS PRN Namenda (Memantine Hcl) 10 Mg Tablet 10 Mg PO DAILY Fluoxetine Hcl 40 Mg Capsule 40 Mg PO DAILY Biofreeze (Menthol) 118 Ml Gel..ml. 118 Ml TP PRN BID PRN Melatonin 3 Mg Tablet 5 Mg PO PRN QHS PRN I have reviewed the current psychotropics carefully including drug interactions. Risk benefit ratio favors no change other than as noted in my dictated progress note. Diagnosis: Problems: (1) Anxiety disorder (2) Bipolar affective, mixed (3) Bipolar affective, mixed, sev w/ psych (4) Impulse control disorder (5) Major depressive disorder, recurrent episode LISA KEY MD May 28, 2018 22:40
--- NOTE | 2018-05-29 05:09 | EKG ---
[address] [address] Test Date: 2018-05-29 Test Time: 04:44:17 Pat Name: JORDON GARCIA Department: Room: [address] [place] [address] Gender: F [employer]ke Operator [employer]: ANDREW : 1950 Requested By: LISA KEY Order Number: [id number] Reading MD: Joshua Concepcion MD Measurements Intervals [place] Rate: 77 P: NM: QRS: 0 QRSD: 82 T: 103 QT: 372 QTc: 423 Interpretive Statements PROBABLE SR NON-SPECIFIC ST/T CHANGES Electronically Signed On 05-31-2018 10:13:22 CDT by Joshua Concepcion MD
[2018-05-29] MEDS: ACETAMINOPHEN 325 MG TABLET PO PRN ×2 (05:29→20:26)
[2018-05-29] MEDS: LEVOTHYROXINE 50 MCG TABLET PO SCH (05:29)
[2018-05-29] MEDS: IPRATRPIUM/ALBUTEROL 0.5/2.5MG 3 ML NEBU. NEB SCH ×4 (05:32→21:05)
[2018-05-29 05:51] VITALS: BP 109/69
[2018-05-29] MEDS: MEMANTINE 10 MG TABLET. PO SCH (08:06)
[2018-05-29] MEDS: PANTOPRAZOLE 40 MG TABLET. PO SCH (08:06)
[2018-05-29] MEDS: DIVALPROEX SODIUM 250 MG TABLET.DR. PO SCH ×2 (08:06→20:12)
[2018-05-29] MEDS: FUROSEMIDE 20 MG TABLET PO SCH (08:06)
[2018-05-29] MEDS: CETIRIZINE HCL 10 MG TABLET PO SCH (08:07)
[2018-05-29] MEDS: DIGOXIN 125 MCG TABLET PO SCH (08:07)
[2018-05-29] MEDS: ASPIRIN 81 MG TAB.CHEW PO SCH (08:07)
[2018-05-29] MEDS: MULTIVITAMIN I-VITE TABLET. PO SCH (08:07)
[2018-05-29] MEDS: CLOPIDOGREL BISULFATE 75 MG TABLET PO SCH (08:08)
[2018-05-29] MEDS: DULoxetine HCL 30 MG CAPSULE.DR PO SCH (08:10)
[2018-05-29] MEDS: GABAPENTIN 300 MG CAPSULE. PO SCH ×2 (08:10→20:12)
[2018-05-29] MEDS: clonazePAM 0.5 MG TABLET PO SCH ×3 (08:11→20:12)
[2018-05-29] MEDS: BUDESONIDE 0.5 MG/2 ML NEBU NEB SCH ×2 (10:54→21:06)
--- NOTE | 2018-05-29 13:54 | PN ---
DATE: 05/28/2018 PSYCHIATRIC PROGRESS NOTE This late entry 05/28/2018 covers elements not covered in my initial note. SUBJECTIVE: I met with the patient in the evening. The patient slept 7-1/2 hours previous night. She continues to complain of some ongoing chronic pain symptoms and anxiety. There is some difficulty with breathing. No CV, , eye, ENT system symptoms on review. MENTAL STATUS EXAM: Reasonably oriented. Speech has some latency, coherent. Abstraction fair, computation impaired, language function intact, attention span short. Mood and affect, anxious, labile, somewhat depressed. LABORATORY DATA: Reviewed. IMPRESSION: Bipolar disorder, mixed with psychotic symptoms versus bipolar disorder, depressed; anxiety disorder, unspecified; impulse control disorder, unspecified. PLAN: The patient does have some chronic pain symptoms. We will change the Prozac 40 mg a day to Cymbalta 30 mg a day, increasing to 60 mg a day to help with the pain, mood and anxiety symptoms. Rest unchanged for now. LISA KEY MD DR: ADELFO/diana JOB#: [id number] / [id number]
[2018-05-29 16:24] VITALS: BP 102/69
[2018-05-29] MEDS: DONEPEZIL HCL 5 MG TABLET. PO SCH (20:12)
[2018-05-29] MEDS: ATORVASTATIN CALCIUM 10 MG TABLET. PO SCH (20:12)
[2018-05-29] MEDS: traZODone 50 MG TABLET. PO SCH (20:12)
[2018-05-29] MEDS: QUEtiapine 50 MG TABLET. PO SCH (20:13)
[2018-05-29] MEDS: SODIUM CHLORIDE 0.65% NASAL SPRAY 45ML BOTTLE. NS PRN (20:26)
--- NOTE | 2018-05-29 23:06 | PDOC ---
Exam Note: Efren Note: Please also refer to the separate dictated note~for this date of service dictated separately.~Patient seen individually. Discussed the patient with Nursing staff reviewed the chart.~Reviewed interim history and current functioning. Reviewed vital signs,~Labs/ Radiology~and current medications noted below. Continue current treatment with the changes noted in the dictated addendum note Assessment: Vital Signs: Vital Signs Date Time Temp Pulse Resp B/P (MAP) Pulse Ox O2 Delivery O2 Flow Rate FiO2 05/29/18 21:08 96 Nasal Cannula 2.0 05/29/18 16:24 98.7 85 20 102/69 (80) I&O Intake and Output 05/29/18 07:00 Intake Total 845 ml Balance 845 ml Intake Oral 845 ml Current Medications: Meds: Current Medications Acetaminophen (Tylenol) 650 mg PRN Q6HRS PRN PO PAIN / TEMP Last administered on 05/29/18at 20:26; Start 05/26/18 at 15:45 Multi-Ingredient Ointment (Analgesic [place]) 1 elvin PRN QID PRN TP MUSCLE PAIN; Start 05/26/18 at 15:45 Al Hydroxide/Mg Hydroxide (Mylanta Plus Xs) 15 ml PRN AFTMEALHC PRN PO DYSPEPSIA; Start 05/26/18 at 15:45 Magnesium Hydroxide (Milk Of Magnesia) 2,400 mg PRN QHS PRN PO CONSTIPATION; Start 05/26/18 at 15:45 Clonazepam (KlonoPIN) 0.5 mg TID PO Last administered on 05/29/18at 20:12; Start 05/26/18 at 21:00 Clopidogrel Bisulfate (Plavix) 75 mg DAILY PO Last administered on 05/29/18at 08 :08; Start 05/27/18 at 09:00 Digoxin (Lanoxin) 125 mcg DAILY PO Last administered on 05/29/18at 08:07; Start 05/27/18 at 09:00 Furosemide (Lasix) 20 mg DAILY PO Last administered on 05/29/18at 08:06; Start 05/27/18 at 09:00 Guaifenesin (Mucinex Er) 600 mg BID PO Last administered on 05/29/18at 20:13; Start 05/26/18 at 21:00 Aspirin (Children'S Aspirin) 162 mg DAILYWBKFT PO Last administered on 08:07; Start 05/27/18 at 08:00 Atorvastatin Calcium (Lipitor) 10 mg QHS PO Last administered on 05/29/18 20: 12; Start 05/26/18 at 21:00 Benzocaine (Ora-Jel Maximum) 1 elvin PRN Q4HRS PRN MM MOUTHL PAIN; Start at 18:15 Divalproex Sodium (Depakote) 250 mg BID PO Last administered on 05/29/18 20:12 ; Start 05/26/18 at 21:00 Docusate Sodium (Colace) 100 mg PRN BID PRN PO CONSTIPATION; Start 05/26/18 at 17:45 Donepezil HCl (Aricept) 5 mg QHS PO Last administered on 05/29/18 20:12; Start 05/26/18 at 21:00 Fluoxetine HCl (PROzac) 40 mg DAILY PO Last administered on 05/28/18 08:02; Start 05/27/18 at 09:00; Stop 05/28/18 at 17:13; Status DC Non-Formulary Medication (Fluticasone/ Salmeterol (Advair 250-50 Diskus)) 1 each Q12HR IH ; Start 05/26/18 at 21:00; Status UNV Gabapentin (Neurontin) 300 mg BID PO Last administered on 05/29/18 20:12; Start 05/26/18 at 21:00 Levothyroxine Sodium (Synthroid) 50 mcg DAILY06 PO Last administered on 05:29; Start 05/27/18 at 06:00 Loperamide HCl (Imodium) 2 mg PRN Q6HRS PRN PO DIARRHEA; Start 05/26/18 at 17: 45 Cetirizine HCl (ZyrTEC) 5 mg DAILY PO Last administered on 05/29/18 08:07; Start 05/27/18 at 09:00 Melatonin 6 mg PRN QHS PRN PO INSOMNIA Last administered on 05/28/18 19:40; Start 05/26/18 at 18:00 Memantine (Namenda) 10 mg DAILY PO Last administered on 05/29/18 08:06; Start 05/27/18 at 09:00 Non-Formulary Medication (Menthol (Biofreeze)) 118 ml PRN BID PRN TP MUSCLE PAIN; Start 05/26/18 at 17:00; Status UNV Pantoprazole Sodium (Protonix) 40 mg DAILYAC PO Last administered on 05/29/18at 08:06; Start 05/27/18 at 07:30 Ondansetron HCl (Zofran Odt) 4 mg PRN TID PRN PO NAUSEA; Start 05/26/18 at 18: 00 Quetiapine Fumarate (SEROquel) 50 mg HS PO Last administered on 05/29/18at 20:13 ; Start 05/26/18 at 21:00 Sodium Chloride (Saline Mist Nasal) 1 elvin PRN TID PRN NS NASAL CONGESTION Last administered on 05/29/18 20:26; Start 05/26/18 at 18:00 Non-Formulary Medication (Tiotropium [place] (Spiriva Respimat)) 1.25 mcg DAILY IH ; Start 05/27/18 at 09:00; Status UNV Trazodone HCl (Desyrel) 50 mg HS PO Last administered on 05/29/18at 20:12; Start 05/26/18 at 21:00 Multivitamins/ Minerals (I-Nba) 1 tab DAILY PO Last administered on 05/29/18 08:07; Start 05/27/18 at 09:00 Albuterol/ Ipratropium (Duoneb) 3 ml RTQID NEB Last administered on 05/29/18 21:05; Start 05/26/18 at 20:00 Budesonide (Pulmicort) 0.5 mg RTBID NEB Last administered on 05/29/18at 21:06; Start 05/26/18 at 20:00 Albuterol Sulfate (Ventolin) 2.5 mg PRN Q6HRS PRN NEB SHORTNESS OF BREATH; Start 05/26/18 at 18:15 Duloxetine HCl (Cymbalta) 30 mg DAILY PO Last administered on 05/29/18at 08:10; Start 05/29/18 at 09:00; Stop 06/01/18 at 08:59 Duloxetine HCl (Cymbalta) 60 mg DAILY PO ; Start 06/01/18 at 09:00 Active Scripts Active Reported Trazodone Hcl 50 Mg Tablet 50 Mg PO QHS Spiriva Respimat (Tiotropium [place]) 4 Gm Mist.inhal 1.25 Mcg IH DAILY Saline Nasal [place] (Sodium Chloride) 30 Ml [place] 1 Spr NS PRN TID PRN Seroquel (Quetiapine Fumarate) 50 Mg Tablet 50 Mg PO QHS Preservision Areds Softgel (Vit A/Vit C/Vit E/Zinc/Copper) 1 Each Capsule 1 Each PO BID Ondansetron Odt (Ondansetron) 4 Mg Tab.rapdis 4 Mg PO PRN TID PRN Prilosec Otc (Omeprazole Magnesium) 20 Mg Tablet.dr 20 Mg PO DAILY06 Loratadine 5 Mg/5 Ml Solution 5 Mg PO DAILY Loperamide (Loperamide Hcl) 2 Mg Capsule 2 Mg PO PRN Q6HRS PRN Synthroid (Levothyroxine Sodium) 50 Mcg Tablet 50 Mcg PO DAILY06 Mucinex (Guaifenesin) 600 Mg Tablet.er 600 Mg PO BID Gabapentin 600 Mg Tablet 300 Mg PO BID Furosemide 20 Mg Tablet 20 Mg PO DAILY Advair 250-50 Diskus (Fluticasone/Salmeterol) 1 Each Disk.w.dev 1 Each IH Q12HR Aricept (Donepezil Hcl) 5 Mg Tablet 5 Mg PO QHS Colace (Docusate Sodium) 100 Mg Capsule 100 Mg PO PRN BID PRN Depakote (Divalproex Sodium) 500 Mg Tablet.dr 250 Mg PO BID Digoxin 125 Mcg Tablet 125 Mcg PO DAILY Clopidogrel (Clopidogrel Bisulfate) 75 Mg Tablet 75 Mg PO DAILY Clonazepam 0.5 Mg Tablet 0.5 Mg PO TID Atorvastatin Calcium 10 Mg Tablet 10 Mg PO QHS Aspirin 81 Mg Tab.chew 162 Mg PO DAILY Anbesol (Benzocaine) 9 Gm Gel..gram. 9 Gm MM PRN Q4HRS PRN Namenda (Memantine Hcl) 10 Mg Tablet 10 Mg PO DAILY Fluoxetine Hcl 40 Mg Capsule 40 Mg PO DAILY Biofreeze (Menthol) 118 Ml Gel..ml. 118 Ml TP PRN BID PRN Melatonin 3 Mg Tablet 5 Mg PO PRN QHS PRN I have reviewed the current psychotropics carefully including drug interactions. Risk benefit ratio favors no change other than as noted in my dictated progress note. Diagnosis: Problems: (1) Anxiety disorder (2) Bipolar affective, mixed (3) Bipolar affective, mixed, sev w/ psych (4) Impulse control disorder (5) Major depressive disorder, recurrent episode LISA KEY MD May 29, 2018 23:06
[2018-05-30] MEDS: LEVOTHYROXINE 50 MCG TABLET PO SCH (05:04)
[2018-05-30] MEDS: IPRATRPIUM/ALBUTEROL 0.5/2.5MG 3 ML NEBU. NEB SCH ×4 (05:33→21:01)
[2018-05-30 06:16] VITALS: BP 113/68
[2018-05-30] MEDS: ACETAMINOPHEN 325 MG TABLET PO PRN ×2 (06:46→20:25)
[2018-05-30] MEDS: CETIRIZINE HCL 10 MG TABLET PO SCH (07:33)
[2018-05-30] MEDS: MEMANTINE 10 MG TABLET. PO SCH (07:33)
[2018-05-30] MEDS: clonazePAM 0.5 MG TABLET PO SCH ×3 (07:33→19:28)
[2018-05-30] MEDS: DULoxetine HCL 30 MG CAPSULE.DR PO SCH (07:33)
[2018-05-30] MEDS: SODIUM CHLORIDE 0.65% NASAL SPRAY 45ML BOTTLE. NS PRN ×2 (07:33→20:24)
[2018-05-30] MEDS: DIVALPROEX SODIUM 250 MG TABLET.DR. PO SCH ×2 (07:33→19:27)
[2018-05-30] MEDS: CLOPIDOGREL BISULFATE 75 MG TABLET PO SCH (07:33)
[2018-05-30] MEDS: GABAPENTIN 300 MG CAPSULE. PO SCH ×2 (07:33→19:28)
[2018-05-30] MEDS: PANTOPRAZOLE 40 MG TABLET. PO SCH (07:33)
[2018-05-30] MEDS: MULTIVITAMIN I-VITE TABLET. PO SCH (07:33)
[2018-05-30] MEDS: DIGOXIN 125 MCG TABLET PO SCH (07:34)
[2018-05-30] MEDS: FUROSEMIDE 20 MG TABLET PO SCH (07:34)
[2018-05-30] MEDS: BUDESONIDE 0.5 MG/2 ML NEBU NEB SCH ×2 (10:28→21:01)
[2018-05-30 16:40] VITALS: BP 112/73
[2018-05-30] MEDS: ATORVASTATIN CALCIUM 10 MG TABLET. PO SCH (19:27)
[2018-05-30] MEDS: DONEPEZIL HCL 5 MG TABLET. PO SCH (19:27)
[2018-05-30] MEDS: QUEtiapine 50 MG TABLET. PO SCH (19:27)
[2018-05-30] MEDS: traZODone 50 MG TABLET. PO SCH (19:28)
--- NOTE | 2018-05-30 22:39 | PDOC ---
Exam Note: Efren Note: Please also refer to the separate dictated note~for this date of service dictated separately.~Patient seen individually. Discussed the patient with Nursing staff reviewed the chart.~Reviewed interim history and current functioning. Reviewed vital signs,~Labs/ Radiology~and current medications noted below. Continue current treatment with the changes noted in the dictated addendum note Assessment: Vital Signs: Vital Signs Date Time Temp Pulse Resp B/P (MAP) Pulse Ox O2 Delivery O2 Flow Rate FiO2 05/30/18 21:00 96 Nasal Cannula 2.0 05/30/18 16:40 97.9 81 19 112/73 (86) I&O Intake and Output 05/30/18 07:00 Intake Total 1080 ml Balance 1080 ml Intake Oral 1080 ml # Bowel Movements 1 Current Medications: Meds: Current Medications Acetaminophen (Tylenol) 650 mg PRN Q6HRS PRN PO PAIN / TEMP Last administered on 05/30/18 20:25; Start 05/26/18 at 15:45 Multi-Ingredient Ointment (Analgesic [place]) 1 elvin PRN QID PRN TP MUSCLE PAIN; Start 05/26/18 at 15:45 Al Hydroxide/Mg Hydroxide (Mylanta Plus Xs) 15 ml PRN AFTMEALHC PRN PO DYSPEPSIA; Start 05/26/18 at 15:45 Magnesium Hydroxide (Milk Of Magnesia) 2,400 mg PRN QHS PRN PO CONSTIPATION; Start 05/26/18 at 15:45 Clonazepam (KlonoPIN) 0.5 mg TID PO Last administered on 05/30/18at 19:28; Start 05/26/18 at 21:00 Clopidogrel Bisulfate (Plavix) 75 mg DAILY PO Last administered on 05/30/18at 07 :33; Start 05/27/18 at 09:00 Digoxin (Lanoxin) 125 mcg DAILY PO Last administered on 05/30/18 07:34; Start 05/27/18 at 09:00 Furosemide (Lasix) 20 mg DAILY PO Last administered on 05/30/18 07:34; Start 05/27/18 at 09:00 Guaifenesin (Mucinex Er) 600 mg BID PO Last administered on 05/30/18at 19:28; Start 05/26/18 at 21:00 Aspirin (Children'S Aspirin) 162 mg DAILYWBKFT PO Last administered on 08:07; Start 05/27/18 at 08:00 Atorvastatin Calcium (Lipitor) 10 mg QHS PO Last administered on 05/30/18 19: 27; Start 05/26/18 at 21:00 Benzocaine (Ora-Jel Maximum) 1 elvin PRN Q4HRS PRN MM MOUTHL PAIN; Start at 18:15 Divalproex Sodium (Depakote) 250 mg BID PO Last administered on 05/30/18 19:27 ; Start 05/26/18 at 21:00 Docusate Sodium (Colace) 100 mg PRN BID PRN PO CONSTIPATION; Start 05/26/18 at 17:45 Donepezil HCl (Aricept) 5 mg QHS PO Last administered on 05/30/18 19:27; Start 05/26/18 at 21:00 Fluoxetine HCl (PROzac) 40 mg DAILY PO Last administered on 05/28/18 08:02; Start 05/27/18 at 09:00; Stop 05/28/18 at 17:13; Status DC Non-Formulary Medication (Fluticasone/ Salmeterol (Advair 250-50 Diskus)) 1 each Q12HR IH ; Start 05/26/18 at 21:00; Status UNV Gabapentin (Neurontin) 300 mg BID PO Last administered on 05/30/18 19:28; Start 05/26/18 at 21:00 Levothyroxine Sodium (Synthroid) 50 mcg DAILY06 PO Last administered on 05:04; Start 05/27/18 at 06:00 Loperamide HCl (Imodium) 2 mg PRN Q6HRS PRN PO DIARRHEA; Start 05/26/18 at 17: 45 Cetirizine HCl (ZyrTEC) 5 mg DAILY PO Last administered on 05/30/18 07:33; Start 05/27/18 at 09:00 Melatonin 6 mg PRN QHS PRN PO INSOMNIA Last administered on 05/28/18 19:40; Start 05/26/18 at 18:00 Memantine (Namenda) 10 mg DAILY PO Last administered on 05/30/18 07:33; Start 05/27/18 at 09:00 Non-Formulary Medication (Menthol (Biofreeze)) 118 ml PRN BID PRN TP MUSCLE PAIN; Start 05/26/18 at 17:00; Status UNV Pantoprazole Sodium (Protonix) 40 mg DAILYAC PO Last administered on 05/30/18 07:33; Start 05/27/18 at 07:30 Ondansetron HCl (Zofran Odt) 4 mg PRN TID PRN PO NAUSEA; Start 05/26/18 at 18: 00 Quetiapine Fumarate (SEROquel) 50 mg HS PO Last administered on 05/30/18 19:27 ; Start 05/26/18 at 21:00 Sodium Chloride (Saline Mist Nasal) 1 elvin PRN TID PRN NS NASAL CONGESTION Last administered on 05/30/18 20:24; Start 05/26/18 at 18:00 Non-Formulary Medication (Tiotropium [place] (Spiriva Respimat)) 1.25 mcg DAILY IH ; Start 05/27/18 at 09:00; Status UNV Trazodone HCl (Desyrel) 50 mg HS PO Last administered on 05/30/18 19:28; Start 05/26/18 at 21:00 Multivitamins/ Minerals (I-Nba) 1 tab DAILY PO Last administered on 05/30/18 07:33; Start 05/27/18 at 09:00 Albuterol/ Ipratropium (Duoneb) 3 ml RTQID NEB Last administered on 05/30/18 21:01; Start 05/26/18 at 20:00 Budesonide (Pulmicort) 0.5 mg RTBID NEB Last administered on 05/30/18 21:01; Start 05/26/18 at 20:00 Albuterol Sulfate (Ventolin) 2.5 mg PRN Q6HRS PRN NEB SHORTNESS OF BREATH; Start 05/26/18 at 18:15 Duloxetine HCl (Cymbalta) 30 mg DAILY PO Last administered on 05/30/18 07:33; Start 05/29/18 at 09:00; Stop 06/01/18 at 08:59 Duloxetine HCl (Cymbalta) 60 mg DAILY PO ; Start 06/01/18 at 09:00 Acetaminophen/ Hydrocodone Bitart (Lortab 5/325) 1 tab PRN Q8HRS PRN PO PAIN; Start 05/30/18 at 17:00 Active Scripts Active Reported Trazodone Hcl 50 Mg Tablet 50 Mg PO QHS Spiriva Respimat (Tiotropium [place]) 4 Gm Mist.inhal 1.25 Mcg IH DAILY Saline Nasal [place] (Sodium Chloride) 30 Ml [place] 1 Spr NS PRN TID PRN Seroquel (Quetiapine Fumarate) 50 Mg Tablet 50 Mg PO QHS Preservision Areds Softgel (Vit A/Vit C/Vit E/Zinc/Copper) 1 Each Capsule 1 Each PO BID Ondansetron Odt (Ondansetron) 4 Mg Tab.rapdis 4 Mg PO PRN TID PRN Prilosec Otc (Omeprazole Magnesium) 20 Mg Tablet.dr 20 Mg PO DAILY06 Loratadine 5 Mg/5 Ml Solution 5 Mg PO DAILY Loperamide (Loperamide Hcl) 2 Mg Capsule 2 Mg PO PRN Q6HRS PRN Synthroid (Levothyroxine Sodium) 50 Mcg Tablet 50 Mcg PO DAILY06 Mucinex (Guaifenesin) 600 Mg Tablet.er 600 Mg PO BID Gabapentin 600 Mg Tablet 300 Mg PO BID Furosemide 20 Mg Tablet 20 Mg PO DAILY Advair 250-50 Diskus (Fluticasone/Salmeterol) 1 Each Disk.w.dev 1 Each IH Q12HR Aricept (Donepezil Hcl) 5 Mg Tablet 5 Mg PO QHS Colace (Docusate Sodium) 100 Mg Capsule 100 Mg PO PRN BID PRN Depakote (Divalproex Sodium) 500 Mg Tablet.dr 250 Mg PO BID Digoxin 125 Mcg Tablet 125 Mcg PO DAILY Clopidogrel (Clopidogrel Bisulfate) 75 Mg Tablet 75 Mg PO DAILY Clonazepam 0.5 Mg Tablet 0.5 Mg PO TID Atorvastatin Calcium 10 Mg Tablet 10 Mg PO QHS Aspirin 81 Mg Tab.chew 162 Mg PO DAILY Anbesol (Benzocaine) 9 Gm Gel..gram. 9 Gm MM PRN Q4HRS PRN Namenda (Memantine Hcl) 10 Mg Tablet 10 Mg PO DAILY Fluoxetine Hcl 40 Mg Capsule 40 Mg PO DAILY Biofreeze (Menthol) 118 Ml Gel..ml. 118 Ml TP PRN BID PRN Melatonin 3 Mg Tablet 5 Mg PO PRN QHS PRN I have reviewed the current psychotropics carefully including drug interactions. Risk benefit ratio favors no change other than as noted in my dictated progress note. Diagnosis: Problems: (1) Anxiety disorder (2) Bipolar affective, mixed (3) Bipolar affective, mixed, sev w/ psych (4) Impulse control disorder (5) Major depressive disorder, recurrent episode LISA KEY MD May 30, 2018 22:39
[2018-05-31] MEDS: IPRATRPIUM/ALBUTEROL 0.5/2.5MG 3 ML NEBU. NEB SCH ×4 (05:22→20:17)
[2018-05-31 05:25] VITALS: BP 112/57
[2018-05-31] MEDS: LEVOTHYROXINE 50 MCG TABLET PO SCH (05:35)
[2018-05-31] MEDS: PANTOPRAZOLE 40 MG TABLET. PO SCH (07:47)
[2018-05-31] MEDS: DIGOXIN 125 MCG TABLET PO SCH (07:47)
[2018-05-31] MEDS: FUROSEMIDE 20 MG TABLET PO SCH (07:47)
[2018-05-31] MEDS: ASPIRIN 81 MG TAB.CHEW PO SCH (07:48)
[2018-05-31] MEDS: DIVALPROEX SODIUM 250 MG TABLET.DR. PO SCH ×2 (07:48→19:57)
[2018-05-31] MEDS: CETIRIZINE HCL 10 MG TABLET PO SCH (07:48)
[2018-05-31] MEDS: MULTIVITAMIN I-VITE TABLET. PO SCH (07:48)
[2018-05-31] MEDS: MEMANTINE 10 MG TABLET. PO SCH (07:48)
[2018-05-31] MEDS: CLOPIDOGREL BISULFATE 75 MG TABLET PO SCH (07:48)
[2018-05-31] MEDS: DULoxetine HCL 30 MG CAPSULE.DR PO SCH (07:51)
[2018-05-31] MEDS: HYDROcodone/APAP 5/325MG 1 TAB TABLET PO PRN (07:51)
[2018-05-31] MEDS: GABAPENTIN 300 MG CAPSULE. PO SCH ×2 (07:51→19:57)
[2018-05-31] MEDS: clonazePAM 0.5 MG TABLET PO SCH ×3 (07:51→19:57)
[2018-05-31] MEDS: SODIUM CHLORIDE 0.65% NASAL SPRAY 45ML BOTTLE. NS PRN (08:00)
[2018-05-31] MEDS: BUDESONIDE 0.5 MG/2 ML NEBU NEB SCH ×2 (10:04→20:17)
[2018-05-31] MEDS: ACYCLOVIR 5% TOPICAL OINT 5GM TUBE. TP SCH ×3 (14:00→20:00)
[2018-05-31 16:59] VITALS: BP 100/67
[2018-05-31] MEDS: ATORVASTATIN CALCIUM 10 MG TABLET. PO SCH (19:56)
[2018-05-31] MEDS: traZODone 50 MG TABLET. PO SCH (19:57)
[2018-05-31] MEDS: QUEtiapine 50 MG TABLET. PO SCH (19:57)
[2018-05-31] MEDS: DONEPEZIL HCL 5 MG TABLET. PO SCH (19:57)
--- NOTE | 2018-05-31 20:07 | PN ---
DATE: 05/29/2018 PSYCHIATRIC PROGRESS NOTE This late entry 05/29/2018 covers elements not covered in my initial note. SUBJECTIVE: I met with the patient late in the evening. She slept 6-1/2 hours previous night, frequently asking for her [place], anxious at times. REVIEW OF SYSTEMS: Ambulation impaired, in wheelchair, remains on O2 supplements. No CV, GI, , eye system symptoms on review. MENTAL STATUS EXAM: Reasonably oriented. Speech is coherent, a little pressured at times. Abstraction fair, computation impaired, language function intact. Mood and affect is improved. LABORATORY DATA: Reviewed. IMPRESSION: Unchanged from initial note. PLAN: No change from initial note. LISA KEY MD DR: ADELFO/diana JOB#: [id number] / [id number]
--- NOTE | 2018-05-31 20:10 | PN ---
DATE: 05/30/2018 PSYCHIATRIC PROGRESS NOTE This late entry 05/30/2018 covers elements not covered in my initial note. SUBJECTIVE: I met with the patient in the evening. The patient slept 6-1/2 hours previous night. She has been pleasant, cooperative, less complaining about the pain since she started on Cymbalta. REVIEW OF SYSTEMS: The patient remains on O2 supplements, impaired ambulation, in wheelchair. No CV, , GI, eye system symptoms on review. MENTAL STATUS EXAM: The patient is reasonably oriented. Speech is coherent, abstraction fair, computation impaired, language function intact, attention span short. Mood and affect appears improved. LABORATORY DATA: Reviewed. IMPRESSION: Unchanged from initial note. PLAN: No change from initial note. MAN Amberly KEY MD DR: ADELFO/diana JOB#: [id number] / [id number]
--- NOTE | 2018-05-31 22:40 | PDOC ---
Exam Note: Efren Note: Please also refer to the separate dictated note~for this date of service dictated separately.~Patient seen individually. Discussed the patient with Nursing staff reviewed the chart.~Reviewed interim history and current functioning. Reviewed vital signs,~Labs/ Radiology~and current medications noted below. Continue current treatment with the changes noted in the dictated addendum note Assessment: Vital Signs: Vital Signs Date Time Temp Pulse Resp B/P (MAP) Pulse Ox O2 Delivery O2 Flow Rate FiO2 05/31/18 20:21 95 Nasal Cannula 1.0 05/31/18 16:59 97.7 85 18 100/67 (78) I&O Intake and Output 05/31/18 07:00 Intake Total 1320 ml Balance 1320 ml Intake Oral 1320 ml Current Medications: Meds: Current Medications Acetaminophen (Tylenol) 650 mg PRN Q6HRS PRN PO PAIN / TEMP Last administered on 05/30/18at 20:25; Start 05/26/18 at 15:45 Multi-Ingredient Ointment (Analgesic [place]) 1 elvin PRN QID PRN TP MUSCLE PAIN; Start 05/26/18 at 15:45 Al Hydroxide/Mg Hydroxide (Mylanta Plus Xs) 15 ml PRN AFTMEALHC PRN PO DYSPEPSIA; Start 05/26/18 at 15:45 Magnesium Hydroxide (Milk Of Magnesia) 2,400 mg PRN QHS PRN PO CONSTIPATION; Start 05/26/18 at 15:45 Clonazepam (KlonoPIN) 0.5 mg TID PO Last administered on 05/31/18at 19:57; Start 05/26/18 at 21:00 Clopidogrel Bisulfate (Plavix) 75 mg DAILY PO Last administered on 05/31/18at 07 :48; Start 05/27/18 at 09:00 Digoxin (Lanoxin) 125 mcg DAILY PO Last administered on 05/31/18 07:47; Start 05/27/18 at 09:00 Furosemide (Lasix) 20 mg DAILY PO Last administered on 05/31/18at 07:47; Start 05/27/18 at 09:00 Guaifenesin (Mucinex Er) 600 mg BID PO Last administered on 05/31/18at 19:57; Start 05/26/18 at 21:00 Aspirin (Children'S Aspirin) 162 mg DAILYWBKFT PO Last administered on 07:48; Start 05/27/18 at 08:00 Atorvastatin Calcium (Lipitor) 10 mg QHS PO Last administered on 05/31/18 19: 56; Start 05/26/18 at 21:00 Benzocaine (Ora-Jel Maximum) 1 elvin PRN Q4HRS PRN MM MOUTHL PAIN; Start at 18:15 Divalproex Sodium (Depakote) 250 mg BID PO Last administered on 05/31/18 19:57 ; Start 05/26/18 at 21:00 Docusate Sodium (Colace) 100 mg PRN BID PRN PO CONSTIPATION; Start 05/26/18 at 17:45 Donepezil HCl (Aricept) 5 mg QHS PO Last administered on 05/31/18 19:57; Start 05/26/18 at 21:00 Fluoxetine HCl (PROzac) 40 mg DAILY PO Last administered on 05/28/18 08:02; Start 05/27/18 at 09:00; Stop 05/28/18 at 17:13; Status DC Non-Formulary Medication (Fluticasone/ Salmeterol (Advair 250-50 Diskus)) 1 each Q12HR IH ; Start 05/26/18 at 21:00; Status UNV Gabapentin (Neurontin) 300 mg BID PO Last administered on 05/31/18 19:57; Start 05/26/18 at 21:00 Levothyroxine Sodium (Synthroid) 50 mcg DAILY06 PO Last administered on 05:35; Start 05/27/18 at 06:00 Loperamide HCl (Imodium) 2 mg PRN Q6HRS PRN PO DIARRHEA; Start 05/26/18 at 17: 45 Cetirizine HCl (ZyrTEC) 5 mg DAILY PO Last administered on 05/31/18 07:48; Start 05/27/18 at 09:00 Melatonin 6 mg PRN QHS PRN PO INSOMNIA Last administered on 05/28/18 19:40; Start 05/26/18 at 18:00 Memantine (Namenda) 10 mg DAILY PO Last administered on 05/31/18 07:48; Start 05/27/18 at 09:00 Non-Formulary Medication (Menthol (Biofreeze)) 118 ml PRN BID PRN TP MUSCLE PAIN; Start 05/26/18 at 17:00; Status UNV Pantoprazole Sodium (Protonix) 40 mg DAILYAC PO Last administered on 05/31/18 07:47; Start 05/27/18 at 07:30 Ondansetron HCl (Zofran Odt) 4 mg PRN TID PRN PO NAUSEA; Start 05/26/18 at 18: 00 Quetiapine Fumarate (SEROquel) 50 mg HS PO Last administered on 05/31/18 19:57 ; Start 05/26/18 at 21:00 Sodium Chloride (Saline Mist Nasal) 1 elvin PRN TID PRN NS NASAL CONGESTION Last administered on 05/31/18 08:00; Start 05/26/18 at 18:00 Non-Formulary Medication (Tiotropium [place] (Spiriva Respimat)) 1.25 mcg DAILY IH ; Start 05/27/18 at 09:00; Status UNV Trazodone HCl (Desyrel) 50 mg HS PO Last administered on 05/31/18 19:57; Start 05/26/18 at 21:00 Multivitamins/ Minerals (I-Nba) 1 tab DAILY PO Last administered on 05/31/18 07:48; Start 05/27/18 at 09:00 Albuterol/ Ipratropium (Duoneb) 3 ml RTQID NEB Last administered on 05/31/18 20:17; Start 05/26/18 at 20:00 Budesonide (Pulmicort) 0.5 mg RTBID NEB Last administered on 05/31/18 20:17; Start 05/26/18 at 20:00 Albuterol Sulfate (Ventolin) 2.5 mg PRN Q6HRS PRN NEB SHORTNESS OF BREATH; Start 05/26/18 at 18:15 Duloxetine HCl (Cymbalta) 30 mg DAILY PO Last administered on 05/31/18 07:51; Start 05/29/18 at 09:00; Stop 06/01/18 at 08:59 Duloxetine HCl (Cymbalta) 60 mg DAILY PO ; Start 06/01/18 at 09:00 Acetaminophen/ Hydrocodone Bitart (Lortab 5/325) 1 tab PRN Q8HRS PRN PO PAIN Last administered on 05/31/18at 07:51; Start 05/30/18 at 17:00 Acyclovir (Zovirax) 1 elvin 5XDAY TP Last administered on 05/31/18at 20:00; Start 05/31/18 at 14:00 Active Scripts Active Reported Trazodone Hcl 50 Mg Tablet 50 Mg PO QHS Spiriva Respimat (Tiotropium [place]) 4 Gm Mist.inhal 1.25 Mcg IH DAILY Saline Nasal [place] (Sodium Chloride) 30 Ml [place] 1 Spr NS PRN TID PRN Seroquel (Quetiapine Fumarate) 50 Mg Tablet 50 Mg PO QHS Preservision Areds Softgel (Vit A/Vit C/Vit E/Zinc/Copper) 1 Each Capsule 1 Each PO BID Ondansetron Odt (Ondansetron) 4 Mg Tab.rapdis 4 Mg PO PRN TID PRN Prilosec Otc (Omeprazole Magnesium) 20 Mg Tablet.dr 20 Mg PO DAILY06 Loratadine 5 Mg/5 Ml Solution 5 Mg PO DAILY Loperamide (Loperamide Hcl) 2 Mg Capsule 2 Mg PO PRN Q6HRS PRN Synthroid (Levothyroxine Sodium) 50 Mcg Tablet 50 Mcg PO DAILY06 Mucinex (Guaifenesin) 600 Mg Tablet.er 600 Mg PO BID Gabapentin 600 Mg Tablet 300 Mg PO BID Furosemide 20 Mg Tablet 20 Mg PO DAILY Advair 250-50 Diskus (Fluticasone/Salmeterol) 1 Each Disk.w.dev 1 Each IH Q12HR Aricept (Donepezil Hcl) 5 Mg Tablet 5 Mg PO QHS Colace (Docusate Sodium) 100 Mg Capsule 100 Mg PO PRN BID PRN Depakote (Divalproex Sodium) 500 Mg Tablet.dr 250 Mg PO BID Digoxin 125 Mcg Tablet 125 Mcg PO DAILY Clopidogrel (Clopidogrel Bisulfate) 75 Mg Tablet 75 Mg PO DAILY Clonazepam 0.5 Mg Tablet 0.5 Mg PO TID Atorvastatin Calcium 10 Mg Tablet 10 Mg PO QHS Aspirin 81 Mg Tab.chew 162 Mg PO DAILY Anbesol (Benzocaine) 9 Gm Gel..gram. 9 Gm MM PRN Q4HRS PRN Namenda (Memantine Hcl) 10 Mg Tablet 10 Mg PO DAILY Fluoxetine Hcl 40 Mg Capsule 40 Mg PO DAILY Biofreeze (Menthol) 118 Ml Gel..ml. 118 Ml TP PRN BID PRN Melatonin 3 Mg Tablet 5 Mg PO PRN QHS PRN I have reviewed the current psychotropics carefully including drug interactions. Risk benefit ratio favors no change other than as noted in my dictated progress note. Diagnosis: Problems: (1) Anxiety disorder (2) Bipolar affective, mixed (3) Bipolar affective, mixed, sev w/ psych (4) Impulse control disorder (5) Major depressive disorder, recurrent episode LISA KEY MD May 31, 2018 22:40
[2018-06-01] MEDS: IPRATRPIUM/ALBUTEROL 0.5/2.5MG 3 ML NEBU. NEB SCH ×4 (05:25→20:11)
[2018-06-01] MEDS: LEVOTHYROXINE 50 MCG TABLET PO SCH (05:26)
[2018-06-01] MEDS: ACYCLOVIR 5% TOPICAL OINT 5GM TUBE. TP SCH ×5 (06:00→19:45)
[2018-06-01 06:04] VITALS: BP 101/68
[2018-06-01] MEDS: BUDESONIDE 0.5 MG/2 ML NEBU NEB SCH ×2 (08:00→20:11)
[2018-06-01] MEDS: DIGOXIN 125 MCG TABLET PO SCH (08:27)
[2018-06-01] MEDS: CETIRIZINE HCL 10 MG TABLET PO SCH (08:28)
[2018-06-01] MEDS: CLOPIDOGREL BISULFATE 75 MG TABLET PO SCH (08:28)
[2018-06-01] MEDS: PANTOPRAZOLE 40 MG TABLET. PO SCH (08:28)
[2018-06-01] MEDS: FUROSEMIDE 20 MG TABLET PO SCH (08:28)
[2018-06-01] MEDS: MEMANTINE 10 MG TABLET. PO SCH (08:28)
[2018-06-01] MEDS: DIVALPROEX SODIUM 250 MG TABLET.DR. PO SCH ×2 (08:28→19:41)
[2018-06-01] MEDS: MULTIVITAMIN I-VITE TABLET. PO SCH (08:28)
[2018-06-01] MEDS: ASPIRIN 81 MG TAB.CHEW PO SCH (08:29)
[2018-06-01] MEDS: DULoxetine HCL 60 MG CAPSULE.DR PO SCH (08:31)
[2018-06-01] MEDS: QUEtiapine 25 MG TABLET. PO SCH ×2 (08:31→16:07)
[2018-06-01] MEDS: GABAPENTIN 300 MG CAPSULE. PO SCH ×2 (08:31→19:44)
[2018-06-01] MEDS: clonazePAM 0.5 MG TABLET PO SCH ×3 (08:31→19:44)
[2018-06-01] MEDS: ACETAMINOPHEN 325 MG TABLET PO PRN (08:40)
[2018-06-01 09:42] LABS: BASO % 0 % (0-3); EOS # 0.2 x10^3/uL (0.0-0.7); EOS % 3 % (0-3); HEMATOCRIT 25.7 % (36.0-47.0); HEMOGLOBIN 7.9 g/dL (12.0-15.5); LYMPH # 0.8 x10^3/uL (1.0-4.8); LYMPH % 13 % (24-48); MEAN CORPUSCULAR HEMOGLOBIN 25 pg (25-35); MEAN CORPUSCULAR HGB CONC 31 g/dL (31-37); MEAN CORPUSCULAR VOLUME 80 fL (79-100); MONO # 0.9 x10^3/uL (0.0-1.1); MONO % 14 % (0-9); NEUT # 4.4 x10^3uL (1.8-7.7); NEUT % 69 % (31-73); PLATELET COUNT 300 x10^3/uL (140-400); RED BLOOD COUNT 3.21 x10^6/uL (3.50-5.40); RED CELL DISTRIBUTION WIDTH 16.7 % (11.5-14.5); WHITE BLOOD COUNT 6.4 x10^3/uL (4.0-11.0)
[2018-06-01 09:57] LABS: ALBUMIN 2.6 g/dL (3.4-5.0); ALBUMIN/GLOBULIN RATIO 0.7 (1.0-1.7); CALCIUM 8.4 mg/dL (8.5-10.1); CREATININE 0.6 mg/dL (0.6-1.0); GFR 99.7; POTASSIUM 3.6 mmol/L (3.5-5.1); TOTAL BILIRUBIN 0.2 mg/dL (0.2-1.0); TOTAL PROTEIN 6.3 g/dL (6.4-8.2)
--- NOTE | 2018-06-01 11:26 | RAD ---
EXAM: Chest, single view. HISTORY: Shortness of breath. COMPARISON: None. FINDINGS: A frontal view the chest is obtained. There is diffuse increased interstitial opacity. There is no consolidation, pleural effusion or pneumothorax. There is a prominent cardiac silhouette. IMPRESSION: 1. Diffuse increased interstitial opacity due to chronic interstitial changes or interstitial infiltrate. There is no consolidation. 2. Prominent cardiac silhouette. Electronically signed by: Nadia Victoria MD (06/01/2018 11:23 AM) [place] [id number]
[2018-06-01] MEDS ORDERED: CHOLECALCIFEROL (VITAMIN D3) 50,000 UNIT CAPSULE PO SCH (14:30)
[2018-06-01] MEDS: FERROUS SULFATE 325 MG TABLET. PO SCH (16:07)
[2018-06-01 16:10] LABS: BILIRUBIN,URINE NEG (NEG); CLARITY,URINE TURBID; COLOR,URINE YELLOW; GLUCOSE,URINE NEG (NEG); NITRITE,URINE NEG (NEG); RBC,URINE TNTC /HPF (0-2); UROBILINOGEN,URINE 0.2 mg/dL (0.2 mg/dL)
[2018-06-01 16:11] LABS: BACTERIA,URINE FEW /HPF (0-FEW); SQUAMOUS EPITHELIAL CELL,UR FEW /LPF
[2018-06-01 16:15] VITALS: BP 98/65
[2018-06-01] MEDS: DONEPEZIL HCL 5 MG TABLET. PO SCH (19:40)
[2018-06-01] MEDS: ATORVASTATIN CALCIUM 10 MG TABLET. PO SCH (19:41)
[2018-06-01] MEDS: traZODone 50 MG TABLET. PO SCH (19:41)
[2018-06-01] MEDS: QUEtiapine 50 MG TABLET. PO SCH (19:41)
[2018-06-01] MEDS: AMOXICILLIN 250 MG CAPSULE PO SCH (19:44)
[2018-06-01] MEDS: ASCORBIC ACID 500 MG TABLET PO SCH (19:46)
[2018-06-01] MEDS: HYDROcodone/APAP 5/325MG 1 TAB TABLET PO PRN (19:57)
[2018-06-01] MEDS: SODIUM CHLORIDE 0.65% NASAL SPRAY 45ML BOTTLE. NS PRN (19:57)
--- NOTE | 2018-06-01 21:56 | PN ---
DATE: 05/31/2018 PSYCHIATRIC PROGRESS NOTE This late entry 05/31/2018 covers elements not covered in my initial note. SUBJECTIVE: I met with the patient in the evening. The patient slept 6-1/2 hours previous night. Overall, she remains somewhat anxious, but better. REVIEW OF SYSTEMS: Ambulation impaired, in wheelchair with shortness of breath on O2 supplements. No CV, , GI, eye system symptoms on review. She complains of ongoing anxiety, wanting her Klonopin increased. MENTAL STATUS EXAM: The patient is reasonably oriented. Speech is coherent, at times pressured. Abstraction fair, computation impaired, language function intact, attention span short. Mood and affect remain somewhat anxious, labile. LABORATORY DATA: Reviewed. IMPRESSION: Unchanged from initial note. PLAN: Add Seroquel 12.5 mg 9 a.m., 1:00 p.m. Rest unchanged from initial note. Seroquel is to augment the Cymbalta and to help with her anxiety as well. LISA KEY MD DR: ADELFO/diana JOB#: [id number] / [id number]
--- NOTE | 2018-06-01 22:56 | PDOC ---
Exam Note: Efren Note: Please also refer to the separate dictated note~for this date of service dictated separately.~Patient seen individually. Discussed the patient with Nursing staff reviewed the chart.~Reviewed interim history and current functioning. Reviewed vital signs,~Labs/ Radiology~and current medications noted below. Continue current treatment with the changes noted in the dictated addendum note Assessment: Vital Signs: Vital Signs Date Time Temp Pulse Resp B/P (MAP) Pulse Ox O2 Delivery O2 Flow Rate FiO2 06/01/18 20:18 100 Nasal Cannula 1.0 06/01/18 16:15 98.0 80 18 98/65 (76) I&O Intake and Output 06/01/18 07:00 Intake Total 1440 ml Balance 1440 ml Intake Oral 1440 ml Labs: Laboratory Tests Test 06/01/18 09:26 06/01/18 14:45 White Blood Count 6.4 x10^3/uL (4.0-11.0) Red Blood Count 3.21 x10^6/uL (3.50-5.40) L Hemoglobin 7.9 g/dL (12.0-15.5) L Hematocrit 25.7 % (36.0-47.0) L Mean Corpuscular Volume 80 fL (79-100) Mean Corpuscular Hemoglobin 25 pg (25-35) Mean Corpuscular Hemoglobin Concent 31 g/dL (31-37) Red Cell Distribution Width 16.7 % (11.5-14.5) H Platelet Count 300 x10^3/uL (140-400) Neutrophils (%) (Auto) 69 % (31-73) Lymphocytes (%) (Auto) 13 % (24-48) L Monocytes (%) (Auto) 14 % (0-9) H Eosinophils (%) (Auto) 3 % (0-3) Basophils (%) (Auto) 0 % (0-3) Neutrophils # (Auto) 4.4 x10^3uL (1.8-7.7) Lymphocytes # (Auto) 0.8 x10^3/uL (1.0-4.8) L Monocytes # (Auto) 0.9 x10^3/uL (0.0-1.1) Eosinophils # (Auto) 0.2 x10^3/uL (0.0-0.7) Basophils # (Auto) 0.0 x10^3/uL (0.0-0.2) Sodium Level 139 mmol/L (136-145) Potassium Level 3.6 mmol/L (3.5-5.1) Chloride Level 102 mmol/L (98-107) Carbon Dioxide Level 28 mmol/L (21-32) Anion Gap 9 (6-14) Blood Urea Nitrogen 21 mg/dL (7-20) H Creatinine 0.6 mg/dL (0.6-1.0) Estimated GFR (Cockcroft-Gault) 99.7 BUN/Creatinine Ratio 35 (6-20) H Glucose Level 94 mg/dL (70-99) Calcium Level 8.4 mg/dL (8.5-10.1) L Total Bilirubin 0.2 mg/dL (0.2-1.0) Aspartate Amino Transferase (AST) 11 U/L (15-37) L Alanine Aminotransferase (ALT) 18 U/L (14-59) Alkaline Phosphatase 124 U/L (46-116) H Total Protein 6.3 g/dL (6.4-8.2) L Albumin 2.6 g/dL (3.4-5.0) L Albumin/Globulin Ratio 0.7 (1.0-1.7) L Urine Collection Type Unknown Urine Color Yellow Urine Clarity Turbid Urine pH 5.5 Urine Specific [place] 1.020 Urine Protein 100 mg/dl (NEG-TRACE) Urine Glucose (UA) Neg mg/dL (NEG) Urine Ketones (Stick) Neg mg/dL (NEG) Urine Blood Large (NEG) Urine Nitrite Neg (NEG) Urine Bilirubin Neg (NEG) Urine Urobilinogen Dipstick 0.2 mg/dL (0.2 mg/dL) Urine Leukocyte Esterase Trace (NEG) Urine RBC Tntc /HPF (0-2) Urine WBC 1-4 /HPF (0-4) Urine Squamous Epithelial Cells Few /LPF Urine Bacteria Few /HPF (0-FEW) Urine Mucus Slight /LPF Current Medications: Meds: Current Medications Acetaminophen (Tylenol) 650 mg PRN Q6HRS PRN PO PAIN / TEMP Last administered on 06/01/18at 08:40; Start 05/26/18 at 15:45 Multi-Ingredient Ointment (Analgesic [place]) 1 elvin PRN QID PRN TP MUSCLE PAIN; Start 05/26/18 at 15:45 Al Hydroxide/Mg Hydroxide (Mylanta Plus Xs) 15 ml PRN AFTMEALHC PRN PO DYSPEPSIA; Start 05/26/18 at 15:45 Magnesium Hydroxide (Milk Of Magnesia) 2,400 mg PRN QHS PRN PO CONSTIPATION; Start 05/26/18 at 15:45 Clonazepam (KlonoPIN) 0.5 mg TID PO Last administered on 06/01/18 19:44; Start 05/26/18 at 21:00 Clopidogrel Bisulfate (Plavix) 75 mg DAILY PO Last administered on 06/01/18 08 :28; Start 05/27/18 at 09:00 Digoxin (Lanoxin) 125 mcg DAILY PO Last administered on 06/01/18 08:27; Start 05/27/18 at 09:00 Furosemide (Lasix) 20 mg DAILY PO Last administered on 06/01/18 08:28; Start 05/27/18 at 09:00; Stop 06/01/18 at 14:44; Status DC Guaifenesin (Mucinex Er) 600 mg BID PO Last administered on 06/01/18 19:41; Start 05/26/18 at 21:00 Aspirin (Children'S Aspirin) 162 mg DAILYWBKFT PO Last administered on 08:29; Start 05/27/18 at 08:00 Atorvastatin Calcium (Lipitor) 10 mg QHS PO Last administered on 06/01/18 19: 41; Start 05/26/18 at 21:00 Benzocaine (Ora-Jel Maximum) 1 elvin PRN Q4HRS PRN MM MOUTHL PAIN; Start at 18:15 Divalproex Sodium (Depakote) 250 mg BID PO Last administered on 06/01/18 19:41 ; Start 05/26/18 at 21:00 Docusate Sodium (Colace) 100 mg PRN BID PRN PO CONSTIPATION; Start 05/26/18 at 17:45 Donepezil HCl (Aricept) 5 mg QHS PO Last administered on 06/01/18 19:40; Start 05/26/18 at 21:00 Fluoxetine HCl (PROzac) 40 mg DAILY PO Last administered on 05/28/18 08:02; Start 05/27/18 at 09:00; Stop 05/28/18 at 17:13; Status DC Non-Formulary Medication (Fluticasone/ Salmeterol (Advair 250-50 Diskus)) 1 each Q12HR IH ; Start 05/26/18 at 21:00; Status UNV Gabapentin (Neurontin) 300 mg BID PO Last administered on 06/01/18 19:44; Start 05/26/18 at 21:00 Levothyroxine Sodium (Synthroid) 50 mcg DAILY06 PO Last administered on 05:26; Start 05/27/18 at 06:00 Loperamide HCl (Imodium) 2 mg PRN Q6HRS PRN PO DIARRHEA; Start 05/26/18 at 17: 45 Cetirizine HCl (ZyrTEC) 5 mg DAILY PO Last administered on 06/01/18 08:28; Start 05/27/18 at 09:00 Melatonin 6 mg PRN QHS PRN PO INSOMNIA Last administered on 05/28/18 19:40; Start 05/26/18 at 18:00 Memantine (Namenda) 10 mg DAILY PO Last administered on 06/01/18 08:28; Start 05/27/18 at 09:00 Non-Formulary Medication (Menthol (Biofreeze)) 118 ml PRN BID PRN TP MUSCLE PAIN; Start 05/26/18 at 17:00; Status UNV Pantoprazole Sodium (Protonix) 40 mg DAILYAC PO Last administered on 06/01/18 08:28; Start 05/27/18 at 07:30 Ondansetron HCl (Zofran Odt) 4 mg PRN TID PRN PO NAUSEA; Start 05/26/18 at 18: 00 Quetiapine Fumarate (SEROquel) 50 mg HS PO Last administered on 06/01/18 19:41 ; Start 05/26/18 at 21:00 Sodium Chloride (Saline Mist Nasal) 1 elvin PRN TID PRN NS NASAL CONGESTION Last administered on 06/01/18 19:57; Start 05/26/18 at 18:00 Non-Formulary Medication (Tiotropium [place] (Spiriva Respimat)) 1.25 mcg DAILY IH ; Start 05/27/18 at 09:00; Status UNV Trazodone HCl (Desyrel) 50 mg HS PO Last administered on 06/01/18 19:41; Start 05/26/18 at 21:00 Multivitamins/ Minerals (I-Nba) 1 tab DAILY PO Last administered on 06/01/18 08:28; Start 05/27/18 at 09:00 Albuterol/ Ipratropium (Duoneb) 3 ml RTQID NEB Last administered on 06/01/18 20:11; Start 05/26/18 at 20:00 Budesonide (Pulmicort) 0.5 mg RTBID NEB Last administered on 06/01/18 20:11; Start 05/26/18 at 20:00 Albuterol Sulfate (Ventolin) 2.5 mg PRN Q6HRS PRN NEB SHORTNESS OF BREATH; Start 05/26/18 at 18:15 Duloxetine HCl (Cymbalta) 30 mg DAILY PO Last administered on 05/31/18 07:51; Start 05/29/18 at 09:00; Stop 06/01/18 at 08:59; Status DC Duloxetine HCl (Cymbalta) 60 mg DAILY PO Last administered on 06/01/18 08:31; Start 06/01/18 at 09:00 Acetaminophen/ Hydrocodone Bitart (Lortab 5/325) 1 tab PRN Q8HRS PRN PO PAIN Last administered on 06/01/18 19:57; Start 05/30/18 at 17:00 Acyclovir (Zovirax) 1 elvin 5XDAY TP Last administered on 06/01/18 19:45; Start 05/31/18 at 14:00 Quetiapine Fumarate (SEROquel) 12.5 mg BID94 PO Last administered on 06/01/18 16:07; Start 06/01/18 at 09:00 Vitamin D (Vitamin D3) 50,000 unit WEEKLY PO Last administered on 06/01/18 16: 06; Start 06/01/18 at 14:30 Furosemide (Lasix) 40 mg DAILY PO ; Start 06/02/18 at 09:00 Potassium Chloride (Klor-Con) 20 meq DAILYWBKFT PO ; Start 06/02/18 at 08:00 Ferrous Sulfate (Feosol) 325 mg TIDWMEALS PO Last administered on 3/26/19at 16: 07; Start 06/01/18 at 17:00 Ascorbic Acid (Vitamin C) 500 mg BID PO Last administered on 06/01/18at 19:46; Start 06/01/18 at 21:00 Amoxicillin (Amoxil) 250 mg [id number] PO Last administered on 06/01/18at 19:44; Start 06/01/18 at 21:00 Active Scripts Active Reported Trazodone Hcl 50 Mg Tablet 50 Mg PO QHS Spiriva Respimat (Tiotropium [place]) 4 Gm Mist.inhal 1.25 Mcg IH DAILY Saline Nasal [place] (Sodium Chloride) 30 Ml [place] 1 Spr NS PRN TID PRN Seroquel (Quetiapine Fumarate) 50 Mg Tablet 50 Mg PO QHS Preservision Areds Softgel (Vit A/Vit C/Vit E/Zinc/Copper) 1 Each Capsule 1 Each PO BID Ondansetron Odt (Ondansetron) 4 Mg Tab.rapdis 4 Mg PO PRN TID PRN Prilosec Otc (Omeprazole Magnesium) 20 Mg Tablet.dr 20 Mg PO DAILY06 Loratadine 5 Mg/5 Ml Solution 5 Mg PO DAILY Loperamide (Loperamide Hcl) 2 Mg Capsule 2 Mg PO PRN Q6HRS PRN Synthroid (Levothyroxine Sodium) 50 Mcg Tablet 50 Mcg PO DAILY06 Mucinex (Guaifenesin) 600 Mg Tablet.er 600 Mg PO BID Gabapentin 600 Mg Tablet 300 Mg PO BID Furosemide 20 Mg Tablet 20 Mg PO DAILY Advair 250-50 Diskus (Fluticasone/Salmeterol) 1 Each Disk.w.dev 1 Each IH Q12HR Aricept (Donepezil Hcl) 5 Mg Tablet 5 Mg PO QHS Colace (Docusate Sodium) 100 Mg Capsule 100 Mg PO PRN BID PRN Depakote (Divalproex Sodium) 500 Mg Tablet.dr 250 Mg PO BID Digoxin 125 Mcg Tablet 125 Mcg PO DAILY Clopidogrel (Clopidogrel Bisulfate) 75 Mg Tablet 75 Mg PO DAILY Clonazepam 0.5 Mg Tablet 0.5 Mg PO TID Atorvastatin Calcium 10 Mg Tablet 10 Mg PO QHS Aspirin 81 Mg Tab.chew 162 Mg PO DAILY Anbesol (Benzocaine) 9 Gm Gel..gram. 9 Gm MM PRN Q4HRS PRN Namenda (Memantine Hcl) 10 Mg Tablet 10 Mg PO DAILY Fluoxetine Hcl 40 Mg Capsule 40 Mg PO DAILY Biofreeze (Menthol) 118 Ml Gel..ml. 118 Ml TP PRN BID PRN Melatonin 3 Mg Tablet 5 Mg PO PRN QHS PRN I have reviewed the current psychotropics carefully including drug interactions. Risk benefit ratio favors no change other than as noted in my dictated progress note. Diagnosis: Problems: (1) Anxiety disorder (2) Bipolar affective, mixed (3) Bipolar affective, mixed, sev w/ psych (4) Impulse control disorder (5) Major depressive disorder, recurrent episode LISA KEY MD Jun 01, 2018 22:56
--- NOTE | 2018-06-02 00:18 | PN ---
DATE: 06/01/2018 SUBJECTIVE: The patient was seen at the request of the nursing staff as she was complaining of increasing shortness of breath. Cough is mostly dry. Denied any chest pain or chills, rigors or fever. She also stated that she might have postmenopausal bleeding versus hematuria. PHYSICAL EXAMINATION: GENERAL: When I examined her, she looked pale, but no jaundice, cyanosis, or thyromegaly. No jugular venous distension. No lower limb edema. VITAL SIGNS: Her heart rate was 105, blood pressure was 101/68, temperature was 98.9, respiratory rate was 24 and oxygen saturation was 98%. HEENT: Examination of the head, eyes, ears, nose and throat showed Normocephalic, atraumatic. NECK: Supple. HEART: Showed normal first and second heart sounds. No gallop, rub or murmur. CHEST: Shows central trachea, equal bilateral expansion, air entry, vesicular sounds with bilateral basal crepitation. I could not appreciate any rhonchi. ABDOMEN: Distended, soft, nontender. NEUROLOGIC: She was awake, alert, responding appropriately. All her cranial nerves are intact. She moves extremities without difficulty, although she is mostly bedbound, chair bound. LABORATORY DATA AND IMAGING STUDIES: Her lab work showed a white cell count of 6400, hemoglobin 7.9, hematocrit 25.7, MCV 80 and platelet count of 300,000. Her chemistry showed the serum sodium of 139, potassium 3.6, chloride 102, bicarbonate 28, anion gap of 9, BUN 21, creatinine 0.6, estimated GFR was 99 mL per minute. Her glucose was 94, calcium was 8.4. Her serum iron was 17, TIBC was 444 and iron saturation was only 4%. Her total bilirubin, AST, ALT, alkaline phosphatase were normal. Total protein was 6.3, albumin 2.6. Her 25-hydroxy vitamin D was only 10.2. She has had a chest x-ray, which showed that there is diffuse increased interstitial opacity. There is no consolidation, pleural effusion or pneumothorax. There is a prominent cardiac silhouette. ASSESSMENT AND PLAN: The patient probably has acute on chronic diastolic congestive heart failure for which I will increase her furosemide to 40 mg once a day. She has also severe iron deficiency anemia for which she was started on iron supplement as well as ascorbic acid. She claimed that she has hematuria versus postmenopausal bleeding. She will check her urine with the urinalysis and we will check also a transvaginal ultrasound. Unfortunately, the patient is on Plavix and aspirin and she is going to be always at high risk for bleeding. DELILAH LANCASTER MD DR: GEOFF/diana JOB#: [id number] / [id number]
[2018-06-02] MEDS: LEVOTHYROXINE 50 MCG TABLET PO SCH (05:25)
[2018-06-02] MEDS: ACYCLOVIR 5% TOPICAL OINT 5GM TUBE. TP SCH ×5 (05:25→19:46)
[2018-06-02 06:02] VITALS: BP 106/69
[2018-06-02] MEDS: FERROUS SULFATE 325 MG TABLET. PO SCH ×3 (07:38→16:10)
[2018-06-02] MEDS: CETIRIZINE HCL 10 MG TABLET PO SCH (07:38)
[2018-06-02] MEDS: DULoxetine HCL 60 MG CAPSULE.DR PO SCH (07:39)
[2018-06-02] MEDS: ASPIRIN 81 MG TAB.CHEW PO SCH (07:39)
[2018-06-02] MEDS: MULTIVITAMIN I-VITE TABLET. PO SCH (07:39)
[2018-06-02] MEDS: MEMANTINE 10 MG TABLET. PO SCH (07:39)
[2018-06-02] MEDS: AMOXICILLIN 250 MG CAPSULE PO SCH ×3 (07:39→19:45)
[2018-06-02] MEDS: CLOPIDOGREL BISULFATE 75 MG TABLET PO SCH (07:40)
[2018-06-02] MEDS: PANTOPRAZOLE 40 MG TABLET. PO SCH (07:40)
[2018-06-02] MEDS: QUEtiapine 25 MG TABLET. PO SCH ×2 (07:40→16:10)
[2018-06-02] MEDS: ASCORBIC ACID 500 MG TABLET PO SCH ×2 (07:40→19:45)
[2018-06-02] MEDS: DIVALPROEX SODIUM 250 MG TABLET.DR. PO SCH ×2 (07:40→19:46)
[2018-06-02] MEDS: DIGOXIN 125 MCG TABLET PO SCH (07:40)
[2018-06-02] MEDS: GABAPENTIN 300 MG CAPSULE. PO SCH ×2 (07:44→19:46)
[2018-06-02] MEDS: FUROSEMIDE 20 MG TABLET PO SCH (07:44)
[2018-06-02] MEDS: clonazePAM 0.5 MG TABLET PO SCH ×3 (07:44→19:50)
[2018-06-02] MEDS: POTASSIUM CHLORIDE 20 MEQ TABLET.ER. PO SCH (07:44)
--- NOTE | 2018-06-02 08:12 | RAD ---
Pelvic ultrasound, 06/01/2018: HISTORY: Spotting Transabdominal and transvaginal scans were obtained. The uterus is small measuring 5.9 x 3.3 x 2.3 cm. It was not clearly defined despite transvaginal scanning. The central uterine echo complex measures 3 mm in AP dimension. No uterine mass is evident. The ovaries were not clearly visualized. No free fluid is evident in the pelvis. IMPRESSION: 1. Atrophic uterus. 2. Nonvisualization of the ovaries. Electronically signed by: Brendan Sierra MD (06/02/2018 8:09 AM) [facility]
[2018-06-02] MEDS: SODIUM CHLORIDE 0.65% NASAL SPRAY 45ML BOTTLE. NS PRN ×2 (08:36→20:04)
[2018-06-02] MEDS: ALBUTEROL SULFATE 2.5 MG/3 ML NEBU. NEB PRN (10:27)
[2018-06-02] MEDS: IPRATRPIUM/ALBUTEROL 0.5/2.5MG 3 ML NEBU. NEB SCH ×4 (10:28→20:00)
[2018-06-02] MEDS: BUDESONIDE 0.5 MG/2 ML NEBU NEB SCH ×2 (10:28→21:28)
[2018-06-02] MEDS: HYDROcodone/APAP 5/325MG 1 TAB TABLET PO PRN ×2 (10:56→20:04)
[2018-06-02 16:19] VITALS: BP 117/74
[2018-06-02] MEDS: QUEtiapine 50 MG TABLET. PO SCH (19:45)
[2018-06-02] MEDS: DONEPEZIL HCL 5 MG TABLET. PO SCH (19:45)
[2018-06-02] MEDS: traZODone 50 MG TABLET. PO SCH (19:45)
[2018-06-02] MEDS: ATORVASTATIN CALCIUM 10 MG TABLET. PO SCH (19:46)
[2018-06-02] MEDS: LACTOBACILLUS RHAMNOSUS GG 1 CAPSULE. PO SCH (19:50)
--- NOTE | 2018-06-02 20:27 | PN ---
DATE: 06/01/2018 PSYCHIATRIC PROGRESS NOTE This late entry 06/01/2018 covers elements not covered in my initial note. SUBJECTIVE: I met with the patient in the evening. The patient slept 5-1/4 hours previous night. She has had some complaints of chest pain and will defer to Dr. Boateng. Chest x-ray was done. She has had some vaginal bleeding. Ultrasound of abdomen awaited. Lasix increased per Dr. Boateng. UA positive and she is on Amoxil. REVIEW OF SYSTEMS: Other than this, no CV, , pulmonary system symptoms on review. MENTAL STATUS EXAM: The patient is reasonably oriented. Speech is coherent. Ambulation impaired, in wheelchair. Abstraction fair, computation impaired, language function intact. Mood and affect still somewhat depressed, anxious, but improved. LABORATORY DATA: Reviewed. IMPRESSION: Unchanged from initial note. PLAN: No change other than what is noted above. MAN Amberly KEY MD DR: ADELFO/diana JOB#: [id number] / [id number]
--- NOTE | 2018-06-02 22:58 | PDOC ---
Exam Note: Efren Note: Please also refer to the separate dictated note~for this date of service dictated separately.~Patient seen individually. Discussed the patient with Nursing staff reviewed the chart.~Reviewed interim history and current functioning. Reviewed vital signs,~Labs/ Radiology~and current medications noted below. Continue current treatment with the changes noted in the dictated addendum note Assessment: Vital Signs: Vital Signs Date Time Temp Pulse Resp B/P (MAP) Pulse Ox O2 Delivery O2 Flow Rate FiO2 06/02/18 21:32 99 Nasal Cannula 1.0 06/02/18 16:19 98.9 91 20 117/74 (88) I&O Intake and Output 06/02/18 06:59 Intake Total 1200 ml Balance 1200 ml Intake Oral 1200 ml # Bowel Movements 2 Current Medications: Meds: Current Medications Acetaminophen (Tylenol) 650 mg PRN Q6HRS PRN PO PAIN / TEMP Last administered on 06/01/18 08:40; Start 05/26/18 at 15:45 Multi-Ingredient Ointment (Analgesic [place]) 1 elvin PRN QID PRN TP MUSCLE PAIN; Start 05/26/18 at 15:45 Al Hydroxide/Mg Hydroxide (Mylanta Plus Xs) 15 ml PRN AFTMEALHC PRN PO DYSPEPSIA; Start 05/26/18 at 15:45 Magnesium Hydroxide (Milk Of Magnesia) 2,400 mg PRN QHS PRN PO CONSTIPATION; Start 05/26/18 at 15:45 Clonazepam (KlonoPIN) 0.5 mg TID PO Last administered on 06/02/18at 19:50; Start 05/26/18 at 21:00 Clopidogrel Bisulfate (Plavix) 75 mg DAILY PO Last administered on 06/02/18at 07 :40; Start 05/27/18 at 09:00 Digoxin (Lanoxin) 125 mcg DAILY PO Last administered on 06/02/18 07:40; Start 05/27/18 at 09:00 Furosemide (Lasix) 20 mg DAILY PO Last administered on 06/01/18at 08:28; Start 05/27/18 at 09:00; Stop 06/01/18 at 14:44; Status DC Guaifenesin (Mucinex Er) 600 mg BID PO Last administered on 06/02/18at 19:46; Start 05/26/18 at 21:00 Aspirin (Children'S Aspirin) 162 mg DAILYWBKFT PO Last administered on 07:39; Start 05/27/18 at 08:00 Atorvastatin Calcium (Lipitor) 10 mg QHS PO Last administered on 06/02/18 19: 46; Start 05/26/18 at 21:00 Benzocaine (Ora-Jel Maximum) 1 elvin PRN Q4HRS PRN MM MOUTHL PAIN; Start at 18:15 Divalproex Sodium (Depakote) 250 mg BID PO Last administered on 06/02/18 19:46 ; Start 05/26/18 at 21:00 Docusate Sodium (Colace) 100 mg PRN BID PRN PO CONSTIPATION; Start 05/26/18 at 17:45 Donepezil HCl (Aricept) 5 mg QHS PO Last administered on 06/02/18 19:45; Start 05/26/18 at 21:00 Fluoxetine HCl (PROzac) 40 mg DAILY PO Last administered on 05/28/18 08:02; Start 05/27/18 at 09:00; Stop 05/28/18 at 17:13; Status DC Non-Formulary Medication (Fluticasone/ Salmeterol (Advair 250-50 Diskus)) 1 each Q12HR IH ; Start 05/26/18 at 21:00; Status UNV Gabapentin (Neurontin) 300 mg BID PO Last administered on 06/02/18 19:46; Start 05/26/18 at 21:00 Levothyroxine Sodium (Synthroid) 50 mcg DAILY06 PO Last administered on 05:25; Start 05/27/18 at 06:00 Loperamide HCl (Imodium) 2 mg PRN Q6HRS PRN PO DIARRHEA; Start 05/26/18 at 17: 45 Cetirizine HCl (ZyrTEC) 5 mg DAILY PO Last administered on 06/02/18 07:38; Start 05/27/18 at 09:00 Melatonin 6 mg PRN QHS PRN PO INSOMNIA Last administered on 05/28/18 19:40; Start 05/26/18 at 18:00 Memantine (Namenda) 10 mg DAILY PO Last administered on 06/02/18 07:39; Start 05/27/18 at 09:00 Non-Formulary Medication (Menthol (Biofreeze)) 118 ml PRN BID PRN TP MUSCLE PAIN; Start 05/26/18 at 17:00; Status UNV Pantoprazole Sodium (Protonix) 40 mg DAILYAC PO Last administered on 06/02/18 07:40; Start 05/27/18 at 07:30 Ondansetron HCl (Zofran Odt) 4 mg PRN TID PRN PO NAUSEA; Start 05/26/18 at 18: 00 Quetiapine Fumarate (SEROquel) 50 mg HS PO Last administered on 06/02/18 19:45 ; Start 05/26/18 at 21:00 Sodium Chloride (Saline Mist Nasal) 1 elvin PRN TID PRN NS NASAL CONGESTION Last administered on 06/02/18 20:04; Start 05/26/18 at 18:00 Non-Formulary Medication (Tiotropium [place] (Spiriva Respimat)) 1.25 mcg DAILY IH ; Start 05/27/18 at 09:00; Status UNV Trazodone HCl (Desyrel) 50 mg HS PO Last administered on 06/02/18 19:45; Start 05/26/18 at 21:00 Multivitamins/ Minerals (I-Nba) 1 tab DAILY PO Last administered on 06/02/18 07:39; Start 05/27/18 at 09:00 Albuterol/ Ipratropium (Duoneb) 3 ml RTQID NEB Last administered on 06/02/18 20:00; Start 05/26/18 at 20:00 Budesonide (Pulmicort) 0.5 mg RTBID NEB Last administered on 06/02/18 21:28; Start 05/26/18 at 20:00 Albuterol Sulfate (Ventolin) 2.5 mg PRN Q6HRS PRN NEB SHORTNESS OF BREATH Last administered on 06/02/18 10:27; Start 05/26/18 at 18:15 Duloxetine HCl (Cymbalta) 30 mg DAILY PO Last administered on 05/31/18 07:51; Start 05/29/18 at 09:00; Stop 06/01/18 at 08:59; Status DC Duloxetine HCl (Cymbalta) 60 mg DAILY PO Last administered on 06/02/18 07:39; Start 06/01/18 at 09:00 Acetaminophen/ Hydrocodone Bitart (Lortab 5/325) 1 tab PRN Q8HRS PRN PO PAIN Last administered on 06/02/18 20:04; Start 05/30/18 at 17:00 Acyclovir (Zovirax) 1 elvin 5XDAY TP Last administered on 06/02/18 19:46; Start 05/31/18 at 14:00 Quetiapine Fumarate (SEROquel) 12.5 mg [id number] PO Last administered on 06/02/18 16:10; Start 06/01/18 at 09:00 Vitamin D (Vitamin D3) 50,000 unit WEEKLY PO Last administered on 06/01/18 16: 06; Start 06/01/18 at 14:30 Furosemide (Lasix) 40 mg DAILY PO Last administered on 06/02/18 07:44; Start 06/02/18 at 09:00 Potassium Chloride (Klor-Con) 20 meq DAILYWBKFT PO Last administered on 07:44; Start 06/02/18 at 08:00 Ferrous Sulfate (Feosol) 325 mg TIDWMEALS PO Last administered on 06/02/18 16: 10; Start 06/01/18 at 17:00 Ascorbic Acid (Vitamin C) 500 mg BID PO Last administered on 06/02/18 19:45; Start 06/01/18 at 21:00 Amoxicillin (Amoxil) 250 mg [id number] PO Last administered on 06/02/18 19:45; Start 06/01/18 at 21:00 Lactobacillus Rhamnosus (Culturelle) 1 cap BID PO Last administered on 19:50; Start 06/02/18 at 21:00 Active Scripts Active Reported Trazodone Hcl 50 Mg Tablet 50 Mg PO QHS Spiriva Respimat (Tiotropium [place]) 4 Gm Mist.inhal 1.25 Mcg IH DAILY Saline Nasal [place] (Sodium Chloride) 30 Ml [place] 1 Spr NS PRN TID PRN Seroquel (Quetiapine Fumarate) 50 Mg Tablet 50 Mg PO QHS Preservision Areds Softgel (Vit A/Vit C/Vit E/Zinc/Copper) 1 Each Capsule 1 Each PO BID Ondansetron Odt (Ondansetron) 4 Mg Tab.rapdis 4 Mg PO PRN TID PRN Prilosec Otc (Omeprazole Magnesium) 20 Mg Tablet.dr 20 Mg PO DAILY06 Loratadine 5 Mg/5 Ml Solution 5 Mg PO DAILY Loperamide (Loperamide Hcl) 2 Mg Capsule 2 Mg PO PRN Q6HRS PRN Synthroid (Levothyroxine Sodium) 50 Mcg Tablet 50 Mcg PO DAILY06 Mucinex (Guaifenesin) 600 Mg Tablet.er 600 Mg PO BID Gabapentin 600 Mg Tablet 300 Mg PO BID Furosemide 20 Mg Tablet 20 Mg PO DAILY Advair 250-50 Diskus (Fluticasone/Salmeterol) 1 Each Disk.w.dev 1 Each IH Q12HR Aricept (Donepezil Hcl) 5 Mg Tablet 5 Mg PO QHS Colace (Docusate Sodium) 100 Mg Capsule 100 Mg PO PRN BID PRN Depakote (Divalproex Sodium) 500 Mg Tablet.dr 250 Mg PO BID Digoxin 125 Mcg Tablet 125 Mcg PO DAILY Clopidogrel (Clopidogrel Bisulfate) 75 Mg Tablet 75 Mg PO DAILY Clonazepam 0.5 Mg Tablet 0.5 Mg PO TID Atorvastatin Calcium 10 Mg Tablet 10 Mg PO QHS Aspirin 81 Mg Tab.chew 162 Mg PO DAILY Anbesol (Benzocaine) 9 Gm Gel..gram. 9 Gm MM PRN Q4HRS PRN Namenda (Memantine Hcl) 10 Mg Tablet 10 Mg PO DAILY Fluoxetine Hcl 40 Mg Capsule 40 Mg PO DAILY Biofreeze (Menthol) 118 Ml Gel..ml. 118 Ml TP PRN BID PRN Melatonin 3 Mg Tablet 5 Mg PO PRN QHS PRN I have reviewed the current psychotropics carefully including drug interactions. Risk benefit ratio favors no change other than as noted in my dictated progress note. Diagnosis: Problems: (1) Anxiety disorder (2) Bipolar affective, mixed (3) Bipolar affective, mixed, sev w/ psych (4) Impulse control disorder (5) Major depressive disorder, recurrent episode LISA KEY MD Jun 02, 2018 22:58
[2018-06-03] MEDS: ALBUTEROL SULFATE 2.5 MG/3 ML NEBU. NEB PRN (05:42)
[2018-06-03] MEDS: LEVOTHYROXINE 50 MCG TABLET PO SCH (05:44)
[2018-06-03] MEDS: BUDESONIDE 0.5 MG/2 ML NEBU NEB SCH ×2 (05:49→22:15)
[2018-06-03] MEDS: IPRATRPIUM/ALBUTEROL 0.5/2.5MG 3 ML NEBU. NEB SCH ×4 (05:49→20:15)
[2018-06-03] MEDS: ACYCLOVIR 5% TOPICAL OINT 5GM TUBE. TP SCH ×5 (06:01→19:47)
[2018-06-03 06:18] VITALS: BP 103/56
[2018-06-03] MEDS: PANTOPRAZOLE 40 MG TABLET. PO SCH (07:30)
[2018-06-03] MEDS: MULTIVITAMIN I-VITE TABLET. PO SCH (07:30)
[2018-06-03] MEDS: MEMANTINE 10 MG TABLET. PO SCH (07:31)
[2018-06-03] MEDS: LACTOBACILLUS RHAMNOSUS GG 1 CAPSULE. PO SCH ×2 (07:31→19:46)
[2018-06-03] MEDS: QUEtiapine 25 MG TABLET. PO SCH ×2 (07:31→16:28)
[2018-06-03] MEDS: DIVALPROEX SODIUM 250 MG TABLET.DR. PO SCH ×2 (07:31→19:45)
[2018-06-03] MEDS: FERROUS SULFATE 325 MG TABLET. PO SCH ×3 (07:31→16:28)
[2018-06-03] MEDS: ASPIRIN 81 MG TAB.CHEW PO SCH (07:31)
[2018-06-03] MEDS: ASCORBIC ACID 500 MG TABLET PO SCH ×2 (07:31→19:46)
[2018-06-03] MEDS: CETIRIZINE HCL 10 MG TABLET PO SCH (07:31)
[2018-06-03] MEDS: AMOXICILLIN 250 MG CAPSULE PO SCH ×3 (07:31→19:44)
[2018-06-03] MEDS: GABAPENTIN 300 MG CAPSULE. PO SCH ×2 (07:31→19:48)
[2018-06-03] MEDS: POTASSIUM CHLORIDE 20 MEQ TABLET.ER. PO SCH (07:32)
[2018-06-03] MEDS: DIGOXIN 125 MCG TABLET PO SCH (07:32)
[2018-06-03] MEDS: DULoxetine HCL 60 MG CAPSULE.DR PO SCH (07:33)
[2018-06-03] MEDS: CLOPIDOGREL BISULFATE 75 MG TABLET PO SCH (07:33)
[2018-06-03] MEDS: FUROSEMIDE 20 MG TABLET PO SCH (07:33)
[2018-06-03] MEDS: clonazePAM 0.5 MG TABLET PO SCH ×3 (07:33→19:47)
[2018-06-03] MEDS: SODIUM CHLORIDE 0.65% NASAL SPRAY 45ML BOTTLE. NS PRN (09:29)
[2018-06-03] MEDS: HYDROcodone/APAP 5/325MG 1 TAB TABLET PO PRN ×2 (09:29→19:47)
[2018-06-03 16:14] VITALS: BP 112/76
[2018-06-03] MEDS: QUEtiapine 50 MG TABLET. PO SCH (19:44)
[2018-06-03] MEDS: traZODone 50 MG TABLET. PO SCH (19:45)
[2018-06-03] MEDS: DONEPEZIL HCL 5 MG TABLET. PO SCH (19:46)
[2018-06-03] MEDS: ATORVASTATIN CALCIUM 10 MG TABLET. PO SCH (19:46)
--- NOTE | 2018-06-03 22:35 | PDOC ---
Exam Note: Efren Note: Please also refer to the separate dictated note~for this date of service dictated separately.~Patient seen individually. Discussed the patient with Nursing staff reviewed the chart.~Reviewed interim history and current functioning. Reviewed vital signs,~Labs/ Radiology~and current medications noted below. Continue current treatment with the changes noted in the dictated addendum note Assessment: Vital Signs: Vital Signs Date Time Temp Pulse Resp B/P (MAP) Pulse Ox O2 Delivery O2 Flow Rate FiO2 06/03/18 22:19 100 Nasal Cannula 1.5 06/03/18 16:14 98.3 73 18 112/76 (88) I&O Intake and Output 06/03/18 06:59 Intake Total 1320 ml Balance 1320 ml Intake Oral 1320 ml # Voids 1 Current Medications: Meds: Current Medications Acetaminophen (Tylenol) 650 mg PRN Q6HRS PRN PO PAIN / TEMP Last administered on 06/01/18 08:40; Start 05/26/18 at 15:45 Multi-Ingredient Ointment (Analgesic [place]) 1 elvin PRN QID PRN TP MUSCLE PAIN; Start 05/26/18 at 15:45 Al Hydroxide/Mg Hydroxide (Mylanta Plus Xs) 15 ml PRN AFTMEALHC PRN PO DYSPEPSIA; Start 05/26/18 at 15:45 Magnesium Hydroxide (Milk Of Magnesia) 2,400 mg PRN QHS PRN PO CONSTIPATION; Start 05/26/18 at 15:45 Clonazepam (KlonoPIN) 0.5 mg TID PO Last administered on 06/03/18at 19:47; Start 05/26/18 at 21:00 Clopidogrel Bisulfate (Plavix) 75 mg DAILY PO Last administered on 06/03/18at 07 :33; Start 05/27/18 at 09:00 Digoxin (Lanoxin) 125 mcg DAILY PO Last administered on 06/03/18 07:32; Start 05/27/18 at 09:00 Furosemide (Lasix) 20 mg DAILY PO Last administered on 06/01/18at 08:28; Start 05/27/18 at 09:00; Stop 06/01/18 at 14:44; Status DC Guaifenesin (Mucinex Er) 600 mg BID PO Last administered on 06/03/18at 19:46; Start 05/26/18 at 21:00 Aspirin (Children'S Aspirin) 162 mg DAILYWBKFT PO Last administered on 07:31; Start 05/27/18 at 08:00 Atorvastatin Calcium (Lipitor) 10 mg QHS PO Last administered on 06/03/18 19: 46; Start 05/26/18 at 21:00 Benzocaine (Ora-Jel Maximum) 1 elvin PRN Q4HRS PRN MM MOUTHL PAIN; Start at 18:15 Divalproex Sodium (Depakote) 250 mg BID PO Last administered on 06/03/18 07:31 ; Start 05/26/18 at 21:00; Stop 06/03/18 at 11:05; Status DC Docusate Sodium (Colace) 100 mg PRN BID PRN PO CONSTIPATION; Start 05/26/18 at 17:45 Donepezil HCl (Aricept) 5 mg QHS PO Last administered on 06/03/18 19:46; Start 05/26/18 at 21:00 Fluoxetine HCl (PROzac) 40 mg DAILY PO Last administered on 05/28/18 08:02; Start 05/27/18 at 09:00; Stop 05/28/18 at 17:13; Status DC Non-Formulary Medication (Fluticasone/ Salmeterol (Advair 250-50 Diskus)) 1 each Q12HR IH ; Start 05/26/18 at 21:00; Status UNV Gabapentin (Neurontin) 300 mg BID PO Last administered on 06/03/18 19:48; Start 05/26/18 at 21:00 Levothyroxine Sodium (Synthroid) 50 mcg DAILY06 PO Last administered on 05:44; Start 05/27/18 at 06:00 Loperamide HCl (Imodium) 2 mg PRN Q6HRS PRN PO DIARRHEA; Start 05/26/18 at 17: 45 Cetirizine HCl (ZyrTEC) 5 mg DAILY PO Last administered on 06/03/18 07:31; Start 05/27/18 at 09:00 Melatonin 6 mg PRN QHS PRN PO INSOMNIA Last administered on 05/28/18 19:40; Start 05/26/18 at 18:00 Memantine (Namenda) 10 mg DAILY PO Last administered on 06/03/18 07:31; Start 05/27/18 at 09:00 Non-Formulary Medication (Menthol (Biofreeze)) 118 ml PRN BID PRN TP MUSCLE PAIN; Start 05/26/18 at 17:00; Status UNV Pantoprazole Sodium (Protonix) 40 mg DAILYAC PO Last administered on 06/03/18 07:30; Start 05/27/18 at 07:30 Ondansetron HCl (Zofran Odt) 4 mg PRN TID PRN PO NAUSEA; Start 05/26/18 at 18: 00 Quetiapine Fumarate (SEROquel) 50 mg HS PO Last administered on 06/03/18 19:44 ; Start 05/26/18 at 21:00 Sodium Chloride (Saline Mist Nasal) 1 elvin PRN TID PRN NS NASAL CONGESTION Last administered on 06/03/18 09:29; Start 05/26/18 at 18:00 Non-Formulary Medication (Tiotropium [place] (Spiriva Respimat)) 1.25 mcg DAILY IH ; Start 05/27/18 at 09:00; Status UNV Trazodone HCl (Desyrel) 50 mg HS PO Last administered on 06/03/18 19:45; Start 05/26/18 at 21:00 Multivitamins/ Minerals (I-Nba) 1 tab DAILY PO Last administered on 06/03/18 07:30; Start 05/27/18 at 09:00 Albuterol/ Ipratropium (Duoneb) 3 ml RTQID NEB Last administered on 06/03/18 20:15; Start 05/26/18 at 20:00 Budesonide (Pulmicort) 0.5 mg RTBID NEB Last administered on 06/03/18 22:15; Start 05/26/18 at 20:00 Albuterol Sulfate (Ventolin) 2.5 mg PRN Q6HRS PRN NEB SHORTNESS OF BREATH Last administered on 06/03/18 05:42; Start 05/26/18 at 18:15 Duloxetine HCl (Cymbalta) 30 mg DAILY PO Last administered on 05/31/18 07:51; Start 05/29/18 at 09:00; Stop 06/01/18 at 08:59; Status DC Duloxetine HCl (Cymbalta) 60 mg DAILY PO Last administered on 06/03/18 07:33; Start 06/01/18 at 09:00 Acetaminophen/ Hydrocodone Bitart (Lortab 5/325) 1 tab PRN Q8HRS PRN PO PAIN Last administered on 06/03/18 19:47; Start 05/30/18 at 17:00 Acyclovir (Zovirax) 1 elvin 5XDAY TP Last administered on 06/03/18 19:47; Start 05/31/18 at 14:00 Quetiapine Fumarate (SEROquel) 12.5 mg BID94 PO Last administered on 06/03/18 16:28; Start 06/01/18 at 09:00 Vitamin D (Vitamin D3) 50,000 unit WEEKLY PO Last administered on 06/01/18 16: 06; Start 06/01/18 at 14:30 Furosemide (Lasix) 40 mg DAILY PO Last administered on 06/03/18 07:33; Start 06/02/18 at 09:00 Potassium Chloride (Klor-Con) 20 meq DAILYWBKFT PO Last administered on 07:32; Start 06/02/18 at 08:00 Ferrous Sulfate (Feosol) 325 mg TIDWMEALS PO Last administered on 06/03/18 16: 28; Start 06/01/18 at 17:00 Ascorbic Acid (Vitamin C) 500 mg BID PO Last administered on 06/03/18 19:46; Start 06/01/18 at 21:00 Amoxicillin (Amoxil) 250 mg [id number] PO Last administered on 06/03/18 19:44; Start 06/01/18 at 21:00 Lactobacillus Rhamnosus (Culturelle) 1 cap BID PO Last administered on 19:46; Start 06/02/18 at 21:00 Divalproex Sodium (Depakote) 375 mg BID PO Last administered on 06/03/18 19:45 ; Start 06/03/18 at 21:00 Active Scripts Active Reported Trazodone Hcl 50 Mg Tablet 50 Mg PO QHS Spiriva Respimat (Tiotropium [place]) 4 Gm Mist.inhal 1.25 Mcg IH DAILY Saline Nasal [place] (Sodium Chloride) 30 Ml [place] 1 Spr NS PRN TID PRN Seroquel (Quetiapine Fumarate) 50 Mg Tablet 50 Mg PO QHS Preservision Areds Softgel (Vit A/Vit C/Vit E/Zinc/Copper) 1 Each Capsule 1 Each PO BID Ondansetron Odt (Ondansetron) 4 Mg Tab.rapdis 4 Mg PO PRN TID PRN Prilosec Otc (Omeprazole Magnesium) 20 Mg Tablet.dr 20 Mg PO DAILY06 Loratadine 5 Mg/5 Ml Solution 5 Mg PO DAILY Loperamide (Loperamide Hcl) 2 Mg Capsule 2 Mg PO PRN Q6HRS PRN Synthroid (Levothyroxine Sodium) 50 Mcg Tablet 50 Mcg PO DAILY06 Mucinex (Guaifenesin) 600 Mg Tablet.er 600 Mg PO BID Gabapentin 600 Mg Tablet 300 Mg PO BID Furosemide 20 Mg Tablet 20 Mg PO DAILY Advair 250-50 Diskus (Fluticasone/Salmeterol) 1 Each Disk.w.dev 1 Each IH Q12HR Aricept (Donepezil Hcl) 5 Mg Tablet 5 Mg PO QHS Colace (Docusate Sodium) 100 Mg Capsule 100 Mg PO PRN BID PRN Depakote (Divalproex Sodium) 500 Mg Tablet.dr 250 Mg PO BID Digoxin 125 Mcg Tablet 125 Mcg PO DAILY Clopidogrel (Clopidogrel Bisulfate) 75 Mg Tablet 75 Mg PO DAILY Clonazepam 0.5 Mg Tablet 0.5 Mg PO TID Atorvastatin Calcium 10 Mg Tablet 10 Mg PO QHS Aspirin 81 Mg Tab.chew 162 Mg PO DAILY Anbesol (Benzocaine) 9 Gm Gel..gram. 9 Gm MM PRN Q4HRS PRN Namenda (Memantine Hcl) 10 Mg Tablet 10 Mg PO DAILY Fluoxetine Hcl 40 Mg Capsule 40 Mg PO DAILY Biofreeze (Menthol) 118 Ml Gel..ml. 118 Ml TP PRN BID PRN Melatonin 3 Mg Tablet 5 Mg PO PRN QHS PRN I have reviewed the current psychotropics carefully including drug interactions. Risk benefit ratio favors no change other than as noted in my dictated progress note. Diagnosis: Problems: (1) Anxiety disorder (2) Bipolar affective, mixed (3) Bipolar affective, mixed, sev w/ psych (4) Impulse control disorder (5) Major depressive disorder, recurrent episode LISA KEY MD Jun 03, 2018 22:35
[2018-06-04] MEDS: ACETAMINOPHEN 325 MG TABLET PO PRN (00:06)
[2018-06-04] MEDS: LEVOTHYROXINE 50 MCG TABLET PO SCH (05:00)
[2018-06-04] MEDS: IPRATRPIUM/ALBUTEROL 0.5/2.5MG 3 ML NEBU. NEB SCH ×4 (05:18→21:28)
[2018-06-04 05:52] VITALS: BP 94/58
[2018-06-04] MEDS: ACYCLOVIR 5% TOPICAL OINT 5GM TUBE. TP SCH ×5 (06:00→19:41)
[2018-06-04] MEDS: FUROSEMIDE 20 MG TABLET PO SCH (07:28)
[2018-06-04] MEDS: DIGOXIN 125 MCG TABLET PO SCH (07:29)
[2018-06-04] MEDS: AMOXICILLIN 250 MG CAPSULE PO SCH ×3 (07:29→19:39)
[2018-06-04] MEDS: CLOPIDOGREL BISULFATE 75 MG TABLET PO SCH (07:29)
[2018-06-04] MEDS: FERROUS SULFATE 325 MG TABLET. PO SCH ×3 (07:29→17:00)
[2018-06-04] MEDS: MULTIVITAMIN I-VITE TABLET. PO SCH (07:29)
[2018-06-04] MEDS: DULoxetine HCL 60 MG CAPSULE.DR PO SCH (07:29)
[2018-06-04] MEDS: MEMANTINE 10 MG TABLET. PO SCH (07:29)
[2018-06-04] MEDS: LACTOBACILLUS RHAMNOSUS GG 1 CAPSULE. PO SCH ×2 (07:29→19:39)
[2018-06-04] MEDS: QUEtiapine 25 MG TABLET. PO SCH ×2 (07:30→16:00)
[2018-06-04] MEDS: PANTOPRAZOLE 40 MG TABLET. PO SCH (07:30)
[2018-06-04] MEDS: CETIRIZINE HCL 10 MG TABLET PO SCH (07:30)
[2018-06-04] MEDS: ASCORBIC ACID 500 MG TABLET PO SCH ×2 (07:30→19:41)
[2018-06-04] MEDS: DIVALPROEX SODIUM 250 MG TABLET.DR. PO SCH ×2 (07:31→19:40)
[2018-06-04] MEDS: POTASSIUM CHLORIDE 20 MEQ TABLET.ER. PO SCH (07:31)
[2018-06-04] MEDS: ASPIRIN 81 MG TAB.CHEW PO SCH (07:31)
[2018-06-04] MEDS: clonazePAM 0.5 MG TABLET PO SCH ×3 (07:33→19:40)
[2018-06-04] MEDS: SODIUM CHLORIDE 0.65% NASAL SPRAY 45ML BOTTLE. NS PRN (07:33)
[2018-06-04] MEDS: GABAPENTIN 300 MG CAPSULE. PO SCH ×2 (07:34→19:41)
[2018-06-04] MEDS: HYDROcodone/APAP 5/325MG 1 TAB TABLET PO PRN ×2 (09:11→20:29)
[2018-06-04] MEDS: ALBUTEROL SULFATE 2.5 MG/3 ML NEBU. NEB PRN (10:10)
[2018-06-04] MEDS: BUDESONIDE 0.5 MG/2 ML NEBU NEB SCH ×2 (10:11→21:28)
[2018-06-04 15:58] VITALS: BP 100/58
[2018-06-04] MEDS: DONEPEZIL HCL 5 MG TABLET. PO SCH (19:39)
[2018-06-04] MEDS: ATORVASTATIN CALCIUM 10 MG TABLET. PO SCH (19:40)
[2018-06-04] MEDS: traZODone 50 MG TABLET. PO SCH (19:40)
[2018-06-04] MEDS: QUEtiapine 50 MG TABLET. PO SCH (19:41)
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
--- NOTE | 2018-06-04 20:48 | PN ---
DATE: 06/03/2018 PSYCHIATRIC PROGRESS NOTE This late entry 06/03/2018 covers elements not covered in my initial note. SUBJECTIVE: I met with the patient in the evening. The patient was also staffed at a treatment team meeting with the entire team. She is sleeping reasonably at night, somewhat isolated. Reviewed her history at length. She has been at [facility] for about 2 years and at the treatment team meeting, the patient attended the conference as well. We had a lengthy discussion about her diagnosis, labs results, UTI, medications, and answered her questions. Valproic acid level subtherapeutic at 28 on Depakote 250 b.i.d., we will increase to 375 b.i.d. Check CBC, CMP, valproic acid level in 3 days. She is sleeping well, somewhat anxious, but less depressed, isolative at times. REVIEW OF SYSTEMS: Ambulation impaired with wheelchair. No CV, , pulmonary, eye, ENT system symptoms on review. MENTAL STATUS EXAM: Oriented reasonably. Speech is coherent, abstraction fair, computation impaired, language function intact, attention span short. Mood and affect showing improvement. LABORATORY DATA: Reviewed. IMPRESSION: Unchanged from initial note. PLAN: No change from initial note other than increase in Depakote as above. LISA KEY MD DR: ADELFO/diana JOB#: [id number] / [id number]
--- NOTE | 2018-06-04 22:32 | PDOC ---
Exam Note: Efren Note: Please also refer to the separate dictated note~for this date of service dictated separately.~Patient seen individually. Discussed the patient with Nursing staff reviewed the chart.~Reviewed interim history and current functioning. Reviewed vital signs,~Labs/ Radiology~and current medications noted below. Continue current treatment with the changes noted in the dictated addendum note Assessment: Vital Signs: Vital Signs Date Time Temp Pulse Resp B/P (MAP) Pulse Ox O2 Delivery O2 Flow Rate FiO2 06/04/18 21:30 99 Nasal Cannula 1.5 06/04/18 15:58 97.6 83 20 100/58 (72) I&O Intake and Output 06/04/18 06:59 Intake Total 1160 ml Balance 1160 ml Intake Oral 1160 ml # Voids 1 # Bowel Movements 1 Current Medications: Meds: Current Medications Acetaminophen (Tylenol) 650 mg PRN Q6HRS PRN PO PAIN / TEMP Last administered on 06/04/18at 00:06; Start 05/26/18 at 15:45 Multi-Ingredient Ointment (Analgesic [place]) 1 elvin PRN QID PRN TP MUSCLE PAIN; Start 05/26/18 at 15:45 Al Hydroxide/Mg Hydroxide (Mylanta Plus Xs) 15 ml PRN AFTMEALHC PRN PO DYSPEPSIA; Start 05/26/18 at 15:45 Magnesium Hydroxide (Milk Of Magnesia) 2,400 mg PRN QHS PRN PO CONSTIPATION; Start 05/26/18 at 15:45 Clonazepam (KlonoPIN) 0.5 mg TID PO Last administered on 06/04/18at 19:40; Start 05/26/18 at 21:00 Clopidogrel Bisulfate (Plavix) 75 mg DAILY PO Last administered on 06/04/18at 07 :29; Start 05/27/18 at 09:00 Digoxin (Lanoxin) 125 mcg DAILY PO Last administered on 06/04/18 07:29; Start 05/27/18 at 09:00 Furosemide (Lasix) 20 mg DAILY PO Last administered on 06/01/18at 08:28; Start 05/27/18 at 09:00; Stop 06/01/18 at 14:44; Status DC Guaifenesin (Mucinex Er) 600 mg BID PO Last administered on 06/04/18at 19:41; Start 05/26/18 at 21:00 Aspirin (Children'S Aspirin) 162 mg DAILYWBKFT PO Last administered on 07:31; Start 05/27/18 at 08:00 Atorvastatin Calcium (Lipitor) 10 mg QHS PO Last administered on 06/04/18 19: 40; Start 05/26/18 at 21:00 Benzocaine (Ora-Jel Maximum) 1 elvin PRN Q4HRS PRN MM MOUTHL PAIN; Start at 18:15 Divalproex Sodium (Depakote) 250 mg BID PO Last administered on 06/03/18 07:31 ; Start 05/26/18 at 21:00; Stop 06/03/18 at 11:05; Status DC Docusate Sodium (Colace) 100 mg PRN BID PRN PO CONSTIPATION; Start 05/26/18 at 17:45 Donepezil HCl (Aricept) 5 mg QHS PO Last administered on 06/04/18 19:39; Start 05/26/18 at 21:00 Fluoxetine HCl (PROzac) 40 mg DAILY PO Last administered on 05/28/18 08:02; Start 05/27/18 at 09:00; Stop 05/28/18 at 17:13; Status DC Non-Formulary Medication (Fluticasone/ Salmeterol (Advair 250-50 Diskus)) 1 each Q12HR IH ; Start 05/26/18 at 21:00; Status UNV Gabapentin (Neurontin) 300 mg BID PO Last administered on 06/04/18 19:41; Start 05/26/18 at 21:00 Levothyroxine Sodium (Synthroid) 50 mcg DAILY06 PO Last administered on at 05:00; Start 05/27/18 at 06:00 Loperamide HCl (Imodium) 2 mg PRN Q6HRS PRN PO DIARRHEA; Start 05/26/18 at 17: 45 Cetirizine HCl (ZyrTEC) 5 mg DAILY PO Last administered on 06/04/18 07:30; Start 05/27/18 at 09:00 Melatonin 6 mg PRN QHS PRN PO INSOMNIA Last administered on 05/28/18 19:40; Start 05/26/18 at 18:00 Memantine (Namenda) 10 mg DAILY PO Last administered on 06/04/18 07:29; Start 05/27/18 at 09:00 Non-Formulary Medication (Menthol (Biofreeze)) 118 ml PRN BID PRN TP MUSCLE PAIN; Start 05/26/18 at 17:00; Status UNV Pantoprazole Sodium (Protonix) 40 mg DAILYAC PO Last administered on 06/04/18 07:30; Start 05/27/18 at 07:30 Ondansetron HCl (Zofran Odt) 4 mg PRN TID PRN PO NAUSEA; Start 05/26/18 at 18: 00 Quetiapine Fumarate (SEROquel) 50 mg HS PO Last administered on 06/04/18 19:41 ; Start 05/26/18 at 21:00 Sodium Chloride (Saline Mist Nasal) 1 elvin PRN TID PRN NS NASAL CONGESTION Last administered on 06/04/18 07:33; Start 05/26/18 at 18:00 Non-Formulary Medication (Tiotropium [place] (Spiriva Respimat)) 1.25 mcg DAILY IH ; Start 05/27/18 at 09:00; Status UNV Trazodone HCl (Desyrel) 50 mg HS PO Last administered on 06/04/18 19:40; Start 05/26/18 at 21:00 Multivitamins/ Minerals (I-Nba) 1 tab DAILY PO Last administered on 06/04/18 07:29; Start 05/27/18 at 09:00 Albuterol/ Ipratropium (Duoneb) 3 ml RTQID NEB Last administered on 06/04/18 21:28; Start 05/26/18 at 20:00 Budesonide (Pulmicort) 0.5 mg RTBID NEB Last administered on 06/04/18 21:28; Start 05/26/18 at 20:00 Albuterol Sulfate (Ventolin) 2.5 mg PRN Q6HRS PRN NEB SHORTNESS OF BREATH Last administered on 06/04/18 10:10; Start 05/26/18 at 18:15 Duloxetine HCl (Cymbalta) 30 mg DAILY PO Last administered on 05/31/18 07:51; Start 05/29/18 at 09:00; Stop 06/01/18 at 08:59; Status DC Duloxetine HCl (Cymbalta) 60 mg DAILY PO Last administered on 06/04/18 07:29; Start 06/01/18 at 09:00 Acetaminophen/ Hydrocodone Bitart (Lortab 5/325) 1 tab PRN Q8HRS PRN PO PAIN Last administered on 06/04/18 20:29; Start 05/30/18 at 17:00 Acyclovir (Zovirax) 1 elvin 5XDAY TP Last administered on 06/04/18 19:41; Start 05/31/18 at 14:00 Quetiapine Fumarate (SEROquel) 12.5 mg BID94 PO Last administered on 06/04/18 16:00; Start 06/01/18 at 09:00 Vitamin D (Vitamin D3) 50,000 unit WEEKLY PO Last administered on 06/01/18 16: 06; Start 06/01/18 at 14:30 Furosemide (Lasix) 40 mg DAILY PO Last administered on 06/04/18 07:28; Start 06/02/18 at 09:00 Potassium Chloride (Klor-Con) 20 meq DAILYWBKFT PO Last administered on 07:31; Start 06/02/18 at 08:00 Ferrous Sulfate (Feosol) 325 mg TIDWMEALS PO Last administered on 06/04/18 17: 00; Start 06/01/18 at 17:00 Ascorbic Acid (Vitamin C) 500 mg BID PO Last administered on 06/04/18 19:41; Start 06/01/18 at 21:00 Amoxicillin (Amoxil) 250 mg [id number] PO Last administered on 06/04/18 19:39; Start 06/01/18 at 21:00 Lactobacillus Rhamnosus (Culturelle) 1 cap BID PO Last administered on 19:39; Start 06/02/18 at 21:00 Divalproex Sodium (Depakote) 375 mg BID PO Last administered on 06/04/18 19:40 ; Start 06/03/18 at 21:00 Active Scripts Active Reported Trazodone Hcl 50 Mg Tablet 50 Mg PO QHS Spiriva Respimat (Tiotropium [place]) 4 Gm Mist.inhal 1.25 Mcg IH DAILY Saline Nasal [place] (Sodium Chloride) 30 Ml [place] 1 Spr NS PRN TID PRN Seroquel (Quetiapine Fumarate) 50 Mg Tablet 50 Mg PO QHS Preservision Areds Softgel (Vit A/Vit C/Vit E/Zinc/Copper) 1 Each Capsule 1 Each PO BID Ondansetron Odt (Ondansetron) 4 Mg Tab.rapdis 4 Mg PO PRN TID PRN Prilosec Otc (Omeprazole Magnesium) 20 Mg Tablet.dr 20 Mg PO DAILY06 Loratadine 5 Mg/5 Ml Solution 5 Mg PO DAILY Loperamide (Loperamide Hcl) 2 Mg Capsule 2 Mg PO PRN Q6HRS PRN Synthroid (Levothyroxine Sodium) 50 Mcg Tablet 50 Mcg PO DAILY06 Mucinex (Guaifenesin) 600 Mg Tablet.er 600 Mg PO BID Gabapentin 600 Mg Tablet 300 Mg PO BID Furosemide 20 Mg Tablet 20 Mg PO DAILY Advair 250-50 Diskus (Fluticasone/Salmeterol) 1 Each Disk.w.dev 1 Each IH Q12HR Aricept (Donepezil Hcl) 5 Mg Tablet 5 Mg PO QHS Colace (Docusate Sodium) 100 Mg Capsule 100 Mg PO PRN BID PRN Depakote (Divalproex Sodium) 500 Mg Tablet.dr 250 Mg PO BID Digoxin 125 Mcg Tablet 125 Mcg PO DAILY Clopidogrel (Clopidogrel Bisulfate) 75 Mg Tablet 75 Mg PO DAILY Clonazepam 0.5 Mg Tablet 0.5 Mg PO TID Atorvastatin Calcium 10 Mg Tablet 10 Mg PO QHS Aspirin 81 Mg Tab.chew 162 Mg PO DAILY Anbesol (Benzocaine) 9 Gm Gel..gram. 9 Gm MM PRN Q4HRS PRN Namenda (Memantine Hcl) 10 Mg Tablet 10 Mg PO DAILY Fluoxetine Hcl 40 Mg Capsule 40 Mg PO DAILY Biofreeze (Menthol) 118 Ml Gel..ml. 118 Ml TP PRN BID PRN Melatonin 3 Mg Tablet 5 Mg PO PRN QHS PRN I have reviewed the current psychotropics carefully including drug interactions. Risk benefit ratio favors no change other than as noted in my dictated progress note. Diagnosis: Problems: (1) Anxiety disorder (2) Bipolar affective, mixed (3) Bipolar affective, mixed, sev w/ psych (4) Impulse control disorder (5) Major depressive disorder, recurrent episode LISA KEY MD Jun 04, 2018 22:32
[2018-06-05] MEDS: HYDROcodone/APAP 5/325MG 1 TAB TABLET PO PRN ×3 (04:34→21:55)
[2018-06-05] MEDS: BUDESONIDE 0.5 MG/2 ML NEBU NEB SCH ×2 (05:26→20:00)
[2018-06-05] MEDS: ACYCLOVIR 5% TOPICAL OINT 5GM TUBE. TP SCH ×5 (06:00→19:18)
[2018-06-05 06:02] VITALS: BP 94/56
[2018-06-05] MEDS: LEVOTHYROXINE 50 MCG TABLET PO SCH (06:11)
[2018-06-05] MEDS: IPRATRPIUM/ALBUTEROL 0.5/2.5MG 3 ML NEBU. NEB SCH ×4 (06:23→20:00)
[2018-06-05] MEDS: SODIUM CHLORIDE 0.65% NASAL SPRAY 45ML BOTTLE. NS PRN (08:05)
[2018-06-05] MEDS: DULoxetine HCL 60 MG CAPSULE.DR PO SCH (08:06)
[2018-06-05] MEDS: POTASSIUM CHLORIDE 20 MEQ TABLET.ER. PO SCH (08:06)
[2018-06-05] MEDS: LACTOBACILLUS RHAMNOSUS GG 1 CAPSULE. PO SCH ×2 (08:06→19:17)
[2018-06-05] MEDS: FERROUS SULFATE 325 MG TABLET. PO SCH ×3 (08:07→18:03)
[2018-06-05] MEDS: GABAPENTIN 300 MG CAPSULE. PO SCH ×2 (08:07→19:18)
[2018-06-05] MEDS: DIVALPROEX SODIUM 250 MG TABLET.DR. PO SCH ×2 (08:07→19:17)
[2018-06-05] MEDS: ASPIRIN 81 MG TAB.CHEW PO SCH (08:08)
[2018-06-05] MEDS: CETIRIZINE HCL 10 MG TABLET PO SCH (08:08)
[2018-06-05] MEDS: AMOXICILLIN 250 MG CAPSULE PO SCH ×3 (08:08→19:17)
[2018-06-05] MEDS: PANTOPRAZOLE 40 MG TABLET. PO SCH (08:09)
[2018-06-05] MEDS: MULTIVITAMIN I-VITE TABLET. PO SCH (08:09)
[2018-06-05] MEDS: CLOPIDOGREL BISULFATE 75 MG TABLET PO SCH (08:09)
[2018-06-05] MEDS: ASCORBIC ACID 500 MG TABLET PO SCH ×2 (08:09→19:18)
[2018-06-05] MEDS: FUROSEMIDE 20 MG TABLET PO SCH (08:09)
[2018-06-05] MEDS: MEMANTINE 10 MG TABLET. PO SCH (08:09)
[2018-06-05] MEDS: QUEtiapine 25 MG TABLET. PO SCH ×2 (08:10→18:03)
[2018-06-05] MEDS: DIGOXIN 125 MCG TABLET PO SCH (08:10)
[2018-06-05] MEDS: clonazePAM 0.5 MG TABLET PO SCH ×3 (08:11→19:17)
[2018-06-05 17:21] VITALS: BP 107/74
[2018-06-05] MEDS: traZODone 50 MG TABLET. PO SCH (19:17)
[2018-06-05] MEDS: ATORVASTATIN CALCIUM 10 MG TABLET. PO SCH (19:17)
[2018-06-05] MEDS: DONEPEZIL HCL 5 MG TABLET. PO SCH (19:17)
[2018-06-05] MEDS: QUEtiapine 50 MG TABLET. PO SCH (19:18)
[2018-06-05] MEDS ORDERED: LOPERAMIDE 2 MG CAPSULE PO PRN (20:45)
--- NOTE | 2018-06-05 22:32 | PDOC ---
Exam Note: Efren Note: Please also refer to the separate dictated note~for this date of service dictated separately.~Patient seen individually. Discussed the patient with Nursing staff reviewed the chart.~Reviewed interim history and current functioning. Reviewed vital signs,~Labs/ Radiology~and current medications noted below. Continue current treatment with the changes noted in the dictated addendum note Assessment: Vital Signs: Vital Signs Date Time Temp Pulse Resp B/P (MAP) Pulse Ox O2 Delivery O2 Flow Rate FiO2 06/05/18 21:55 18 Nasal Cannula 1.5 06/05/18 17:21 98.3 87 107/74 (85) 94 I&O Intake and Output 06/05/18 07:00 Intake Total 1120 ml Balance 1120 ml Intake Oral 1120 ml # Voids 1 Current Medications: Meds: Current Medications Acetaminophen (Tylenol) 650 mg PRN Q6HRS PRN PO PAIN / TEMP Last administered on 06/04/18at 00:06; Start 05/26/18 at 15:45 Multi-Ingredient Ointment (Analgesic [place]) 1 elvin PRN QID PRN TP MUSCLE PAIN; Start 05/26/18 at 15:45 Al Hydroxide/Mg Hydroxide (Mylanta Plus Xs) 15 ml PRN AFTMEALHC PRN PO DYSPEPSIA; Start 05/26/18 at 15:45 Magnesium Hydroxide (Milk Of Magnesia) 2,400 mg PRN QHS PRN PO CONSTIPATION; Start 05/26/18 at 15:45 Clonazepam (KlonoPIN) 0.5 mg TID PO Last administered on 06/05/18at 19:17; Start 05/26/18 at 21:00 Clopidogrel Bisulfate (Plavix) 75 mg DAILY PO Last administered on 06/05/18at 08 :09; Start 05/27/18 at 09:00 Digoxin (Lanoxin) 125 mcg DAILY PO Last administered on 06/04/18 07:29; Start 05/27/18 at 09:00 Furosemide (Lasix) 20 mg DAILY PO Last administered on 06/01/18at 08:28; Start 05/27/18 at 09:00; Stop 06/01/18 at 14:44; Status DC Guaifenesin (Mucinex Er) 600 mg BID PO Last administered on 06/05/18 19:18; Start 05/26/18 at 21:00 Aspirin (Children'S Aspirin) 162 mg DAILYWBKFT PO Last administered on 08:08; Start 05/27/18 at 08:00 Atorvastatin Calcium (Lipitor) 10 mg QHS PO Last administered on 06/05/18 19: 17; Start 05/26/18 at 21:00 Benzocaine (Ora-Jel Maximum) 1 elvin PRN Q4HRS PRN MM MOUTHL PAIN; Start at 18:15 Divalproex Sodium (Depakote) 250 mg BID PO Last administered on 06/03/18 07:31 ; Start 05/26/18 at 21:00; Stop 06/03/18 at 11:05; Status DC Docusate Sodium (Colace) 100 mg PRN BID PRN PO CONSTIPATION; Start 05/26/18 at 17:45 Donepezil HCl (Aricept) 5 mg QHS PO Last administered on 06/05/18 19:17; Start 05/26/18 at 21:00 Fluoxetine HCl (PROzac) 40 mg DAILY PO Last administered on 05/28/18 08:02; Start 05/27/18 at 09:00; Stop 05/28/18 at 17:13; Status DC Non-Formulary Medication (Fluticasone/ Salmeterol (Advair 250-50 Diskus)) 1 each Q12HR IH ; Start 05/26/18 at 21:00; Status UNV Gabapentin (Neurontin) 300 mg BID PO Last administered on 06/05/18 19:18; Start 05/26/18 at 21:00 Levothyroxine Sodium (Synthroid) 50 mcg DAILY06 PO Last administered on 06:11; Start 05/27/18 at 06:00 Loperamide HCl (Imodium) 2 mg PRN Q6HRS PRN PO DIARRHEA Last administered on 20:48; Start 05/26/18 at 17:45 Cetirizine HCl (ZyrTEC) 5 mg DAILY PO Last administered on 06/05/18 08:08; Start 05/27/18 at 09:00 Melatonin 6 mg PRN QHS PRN PO INSOMNIA Last administered on 05/28/18 19:40; Start 05/26/18 at 18:00 Memantine (Namenda) 10 mg DAILY PO Last administered on 06/05/18 08:09; Start 05/27/18 at 09:00 Non-Formulary Medication (Menthol (Biofreeze)) 118 ml PRN BID PRN TP MUSCLE PAIN; Start 05/26/18 at 17:00; Status UNV Pantoprazole Sodium (Protonix) 40 mg DAILYAC PO Last administered on 06/05/18 08:09; Start 05/27/18 at 07:30 Ondansetron HCl (Zofran Odt) 4 mg PRN TID PRN PO NAUSEA; Start 05/26/18 at 18: 00 Quetiapine Fumarate (SEROquel) 50 mg HS PO Last administered on 06/05/18 19:18 ; Start 05/26/18 at 21:00 Sodium Chloride (Saline Mist Nasal) 1 elvin PRN TID PRN NS NASAL CONGESTION Last administered on 06/05/18 08:05; Start 05/26/18 at 18:00 Non-Formulary Medication (Tiotropium [place] (Spiriva Respimat)) 1.25 mcg DAILY IH ; Start 05/27/18 at 09:00; Status UNV Trazodone HCl (Desyrel) 50 mg HS PO Last administered on 06/05/18 19:17; Start 05/26/18 at 21:00 Multivitamins/ Minerals (I-Nba) 1 tab DAILY PO Last administered on 06/05/18 08:09; Start 05/27/18 at 09:00 Albuterol/ Ipratropium (Duoneb) 3 ml RTQID NEB Last administered on 06/05/18 16:32; Start 05/26/18 at 20:00 Budesonide (Pulmicort) 0.5 mg RTBID NEB Last administered on 06/05/18 05:26; Start 05/26/18 at 20:00 Albuterol Sulfate (Ventolin) 2.5 mg PRN Q6HRS PRN NEB SHORTNESS OF BREATH Last administered on 06/04/18 10:10; Start 05/26/18 at 18:15 Duloxetine HCl (Cymbalta) 30 mg DAILY PO Last administered on 05/31/18 07:51; Start 05/29/18 at 09:00; Stop 06/01/18 at 08:59; Status DC Duloxetine HCl (Cymbalta) 60 mg DAILY PO Last administered on 06/05/18 08:06; Start 06/01/18 at 09:00 Acetaminophen/ Hydrocodone Bitart (Lortab 5/325) 1 tab PRN Q8HRS PRN PO PAIN Last administered on 06/05/18 21:55; Start 05/30/18 at 17:00 Acyclovir (Zovirax) 1 elvin 5XDAY TP Last administered on 06/05/18 18:03; Start 05/31/18 at 14:00 Quetiapine Fumarate (SEROquel) 12.5 mg [id number] PO Last administered on 06/05/18 18:03; Start 06/01/18 at 09:00 Vitamin D (Vitamin D3) 50,000 unit WEEKLY PO Last administered on 06/01/18 16: 06; Start 06/01/18 at 14:30 Furosemide (Lasix) 40 mg DAILY PO Last administered on 06/05/18 08:09; Start 06/02/18 at 09:00 Potassium Chloride (Klor-Con) 20 meq DAILYWBKFT PO Last administered on 08:06; Start 06/02/18 at 08:00 Ferrous Sulfate (Feosol) 325 mg TIDWMEALS PO Last administered on 06/05/18 18: 03; Start 06/01/18 at 17:00 Ascorbic Acid (Vitamin C) 500 mg BID PO Last administered on 06/05/18 19:18; Start 06/01/18 at 21:00 Amoxicillin (Amoxil) 250 mg [id number] PO Last administered on 06/05/18 19:17; Start 06/01/18 at 21:00 Lactobacillus Rhamnosus (Culturelle) 1 cap BID PO Last administered on 19:17; Start 06/02/18 at 21:00 Divalproex Sodium (Depakote) 375 mg BID PO Last administered on 06/05/18 19:17 ; Start 06/03/18 at 21:00 Loperamide HCl (Imodium) 2 mg PRN Q15MIN PRN PO DIARRHEA; Start 06/05/18 at 20: 45 Active Scripts Active Reported Trazodone Hcl 50 Mg Tablet 50 Mg PO QHS Spiriva Respimat (Tiotropium [place]) 4 Gm Mist.inhal 1.25 Mcg IH DAILY Saline Nasal [place] (Sodium Chloride) 30 Ml [place] 1 Spr NS PRN TID PRN Seroquel (Quetiapine Fumarate) 50 Mg Tablet 50 Mg PO QHS Preservision Areds Softgel (Vit A/Vit C/Vit E/Zinc/Copper) 1 Each Capsule 1 Each PO BID Ondansetron Odt (Ondansetron) 4 Mg Tab.rapdis 4 Mg PO PRN TID PRN Prilosec Otc (Omeprazole Magnesium) 20 Mg Tablet.dr 20 Mg PO DAILY06 Loratadine 5 Mg/5 Ml Solution 5 Mg PO DAILY Loperamide (Loperamide Hcl) 2 Mg Capsule 2 Mg PO PRN Q6HRS PRN Synthroid (Levothyroxine Sodium) 50 Mcg Tablet 50 Mcg PO DAILY06 Mucinex (Guaifenesin) 600 Mg Tablet.er 600 Mg PO BID Gabapentin 600 Mg Tablet 300 Mg PO BID Furosemide 20 Mg Tablet 20 Mg PO DAILY Advair 250-50 Diskus (Fluticasone/Salmeterol) 1 Each Disk.w.dev 1 Each IH Q12HR Aricept (Donepezil Hcl) 5 Mg Tablet 5 Mg PO QHS Colace (Docusate Sodium) 100 Mg Capsule 100 Mg PO PRN BID PRN Depakote (Divalproex Sodium) 500 Mg Tablet.dr 250 Mg PO BID Digoxin 125 Mcg Tablet 125 Mcg PO DAILY Clopidogrel (Clopidogrel Bisulfate) 75 Mg Tablet 75 Mg PO DAILY Clonazepam 0.5 Mg Tablet 0.5 Mg PO TID Atorvastatin Calcium 10 Mg Tablet 10 Mg PO QHS Aspirin 81 Mg Tab.chew 162 Mg PO DAILY Anbesol (Benzocaine) 9 Gm Gel..gram. 9 Gm MM PRN Q4HRS PRN Namenda (Memantine Hcl) 10 Mg Tablet 10 Mg PO DAILY Fluoxetine Hcl 40 Mg Capsule 40 Mg PO DAILY Biofreeze (Menthol) 118 Ml Gel..ml. 118 Ml TP PRN BID PRN Melatonin 3 Mg Tablet 5 Mg PO PRN QHS PRN I have reviewed the current psychotropics carefully including drug interactions. Risk benefit ratio favors no change other than as noted in my dictated progress note. Diagnosis: Problems: (1) Anxiety disorder (2) Bipolar affective, mixed (3) Bipolar affective, mixed, sev w/ psych (4) Impulse control disorder (5) Major depressive disorder, recurrent episode LISA KEY MD Jun 05, 2018 22:32
[2018-06-05] MEDS ORDERED: CETI5SOL PO (22:46)
[2018-06-05] MEDS ORDERED: QUET25TA5 PO (22:53)
[2018-06-05] MEDS ORDERED: ACET325T9 PO (23:02)
[2018-06-05] MEDS ORDERED: ACYC5CRE2 TP (23:04)
[2018-06-05] MEDS ORDERED: ALBU2.5V5 NEB (23:05)
[2018-06-05] MEDS ORDERED: AMOX-260 PO (23:07)
[2018-06-05] MEDS ORDERED: ASCO500T3 PO (23:07)
[2018-06-05] MEDS ORDERED: BUDE0.5A3 NEB (23:09)
[2018-06-05] MEDS ORDERED: CHOL500021 PO (23:10)
[2018-06-05] MEDS ORDERED: DULO60CA6 PO (23:11)
[2018-06-05] MEDS ORDERED: FERR325T14 PO (23:12)
[2018-06-05] MEDS ORDERED: HYDR-2759 PO (23:13)
[2018-06-05] MEDS ORDERED: LACT1CAP21 PO (23:14)
[2018-06-05] MEDS ORDERED: IPRA3AMP29 NEB (23:14)
[2018-06-05] MEDS ORDERED: MAGN2400 PO (23:21)
[2018-06-05] MEDS ORDERED: MAG30ORA2 PO (23:21)
[2018-06-05] MEDS ORDERED: POTA20TA4 PO (23:24)
[2018-06-05] MEDS ORDERED: PANT40TA5 PO (23:24)
[2018-06-06] MEDS: ACETAMINOPHEN 325 MG TABLET PO PRN (03:12)
[2018-06-06] MEDS: IPRATRPIUM/ALBUTEROL 0.5/2.5MG 3 ML NEBU. NEB SCH ×4 (04:49→21:07)
[2018-06-06] MEDS: HYDROcodone/APAP 5/325MG 1 TAB TABLET PO PRN ×3 (05:51→19:33)
[2018-06-06] MEDS: LEVOTHYROXINE 50 MCG TABLET PO SCH (05:51)
[2018-06-06] MEDS: ACYCLOVIR 5% TOPICAL OINT 5GM TUBE. TP SCH ×3 (05:51→13:55)
[2018-06-06 06:36] VITALS: BP 107/67
[2018-06-06] MEDS: MULTIVITAMIN I-VITE TABLET. PO SCH (07:46)
[2018-06-06] MEDS: FUROSEMIDE 20 MG TABLET PO SCH (07:46)
[2018-06-06] MEDS: PANTOPRAZOLE 40 MG TABLET. PO SCH (07:46)
[2018-06-06] MEDS: CETIRIZINE HCL 10 MG TABLET PO SCH (07:46)
[2018-06-06] MEDS: CLOPIDOGREL BISULFATE 75 MG TABLET PO SCH (07:46)
[2018-06-06] MEDS: LACTOBACILLUS RHAMNOSUS GG 1 CAPSULE. PO SCH ×2 (07:46→19:36)
[2018-06-06] MEDS: DULoxetine HCL 60 MG CAPSULE.DR PO SCH (07:46)
[2018-06-06] MEDS: POTASSIUM CHLORIDE 20 MEQ TABLET.ER. PO SCH (07:47)
[2018-06-06] MEDS: ASCORBIC ACID 500 MG TABLET PO SCH ×2 (07:47→19:36)
[2018-06-06] MEDS: AMOXICILLIN 250 MG CAPSULE PO SCH ×3 (07:47→19:33)
[2018-06-06] MEDS: DIVALPROEX SODIUM 250 MG TABLET.DR. PO SCH ×2 (07:48→19:34)
[2018-06-06] MEDS: QUEtiapine 25 MG TABLET. PO SCH ×2 (07:48→17:56)
[2018-06-06] MEDS: clonazePAM 0.5 MG TABLET PO SCH ×3 (07:48→19:36)
[2018-06-06] MEDS: ASPIRIN 81 MG TAB.CHEW PO SCH (07:48)
[2018-06-06] MEDS: GABAPENTIN 300 MG CAPSULE. PO SCH ×2 (07:49→19:36)
[2018-06-06] MEDS: FERROUS SULFATE 325 MG TABLET. PO SCH ×3 (07:49→17:56)
[2018-06-06] MEDS: MEMANTINE 10 MG TABLET. PO SCH (07:49)
[2018-06-06] MEDS: DIGOXIN 125 MCG TABLET PO SCH (07:49)
[2018-06-06 08:25] LABS: BASO % 1 % (0-3); EOS # 0.3 x10^3/uL (0.0-0.7); EOS % 8 % (0-3); HEMATOCRIT 27.2 % (36.0-47.0); HEMOGLOBIN 8.4 g/dL (12.0-15.5); LYMPH # 0.8 x10^3/uL (1.0-4.8); LYMPH % 18 % (24-48); MEAN CORPUSCULAR HEMOGLOBIN 25 pg (25-35); MEAN CORPUSCULAR HGB CONC 31 g/dL (31-37); MEAN CORPUSCULAR VOLUME 82 fL (79-100); MONO # 0.7 x10^3/uL (0.0-1.1); MONO % 15 % (0-9); NEUT # 2.7 x10^3uL (1.8-7.7); NEUT % 59 % (31-73); PLATELET COUNT 303 x10^3/uL (140-400); RED BLOOD COUNT 3.33 x10^6/uL (3.50-5.40); RED CELL DISTRIBUTION WIDTH 17.1 % (11.5-14.5); WHITE BLOOD COUNT 4.5 x10^3/uL (4.0-11.0)
--- NOTE | 2018-06-06 08:39 | RAD ---
CHEST AP ONLY Clinical Indication: Cough,short of air, "doesn't feel well" history of pneumonia Comparison: 06/01/2018 upright frontal view of the chest. Findings: The cardiomediastinal silhouette is normal. Mild pulmonary vasculature congestion is present. There is no pneumothorax. No pleural effusion is appreciated. No acute bone abnormality. IMPRESSION: Mild pulmonary vascular congestion. No focal dense consolidation. Electronically signed by: Marino Seals MD (06/06/2018 8:36 AM) [facility]
[2018-06-06 08:48] LABS: ALBUMIN 2.5 g/dL (3.4-5.0); ALBUMIN/GLOBULIN RATIO 0.6 (1.0-1.7); ALK PHOS 141 U/L (46-116); ALT (SGPT) 18 U/L (14-59); ANION GAP 7 (6-14); AST (SGOT) 17 U/L (15-37); BLOOD UREA NITROGEN 15 mg/dL (7-20); BUN/CREATININE RATIO 25 (6-20); CALCIUM 9.1 mg/dL (8.5-10.1); CARBON DIOXIDE 33 mmol/L (21-32); CHLORIDE 102 mmol/L (98-107); CREATININE 0.6 mg/dL (0.6-1.0); GFR 99.7; GLUCOSE 71 mg/dL (70-99); POTASSIUM 4.3 mmol/L (3.5-5.1); SODIUM 142 mmol/L (136-145); TOTAL BILIRUBIN 0.2 mg/dL (0.2-1.0)
[2018-06-06 08:54] LABS: VAL ACID 35 mcg/mL (50-100)
[2018-06-06] MEDS: BUDESONIDE 0.5 MG/2 ML NEBU NEB SCH ×2 (11:03→21:07)
[2018-06-06] MEDS ORDERED: FUROSEMIDE 20 MG TABLET PO ONE (13:45)
[2018-06-06 15:47] VITALS: BP 121/70
[2018-06-06] MEDS: SODIUM CHLORIDE 0.65% NASAL SPRAY 45ML BOTTLE. NS PRN (19:33)
[2018-06-06] MEDS: QUEtiapine 50 MG TABLET. PO SCH (19:33)
[2018-06-06] MEDS: DONEPEZIL HCL 5 MG TABLET. PO SCH (19:35)
[2018-06-06] MEDS: ATORVASTATIN CALCIUM 10 MG TABLET. PO SCH (19:36)
[2018-06-06] MEDS: traZODone 50 MG TABLET. PO SCH (19:36)
--- NOTE | 2018-06-06 22:42 | PDOC ---
Exam Note: Efren Note: Please also refer to the separate dictated note~for this date of service dictated separately.~Patient seen individually. Discussed the patient with Nursing staff reviewed the chart.~Reviewed interim history and current functioning. Reviewed vital signs,~Labs/ Radiology~and current medications noted below. Continue current treatment with the changes noted in the dictated addendum note Assessment: Vital Signs: Vital Signs Date Time Temp Pulse Resp B/P (MAP) Pulse Ox O2 Delivery O2 Flow Rate FiO2 06/06/18 21:11 94 Room Air 06/06/18 16:48 1.5 06/06/18 15:47 97.8 70 18 121/70 (87) I&O Intake and Output 06/06/18 07:00 Intake Total 1200 ml Balance 1200 ml Intake Oral 1200 ml # Bowel Movements 1 Labs: Laboratory Tests Test 06/06/18 08:05 White Blood Count 4.5 x10^3/uL (4.0-11.0) Red Blood Count 3.33 x10^6/uL (3.50-5.40) L Hemoglobin 8.4 g/dL (12.0-15.5) L Hematocrit 27.2 % (36.0-47.0) L Mean Corpuscular Volume 82 fL (79-100) Mean Corpuscular Hemoglobin 25 pg (25-35) Mean Corpuscular Hemoglobin Concent 31 g/dL (31-37) Red Cell Distribution Width 17.1 % (11.5-14.5) H Platelet Count 303 x10^3/uL (140-400) Neutrophils (%) (Auto) 59 % (31-73) Lymphocytes (%) (Auto) 18 % (24-48) L Monocytes (%) (Auto) 15 % (0-9) H Eosinophils (%) (Auto) 8 % (0-3) H Basophils (%) (Auto) 1 % (0-3) Neutrophils # (Auto) 2.7 x10^3uL (1.8-7.7) Lymphocytes # (Auto) 0.8 x10^3/uL (1.0-4.8) L Monocytes # (Auto) 0.7 x10^3/uL (0.0-1.1) Eosinophils # (Auto) 0.3 x10^3/uL (0.0-0.7) Basophils # (Auto) 0.0 x10^3/uL (0.0-0.2) Sodium Level 142 mmol/L (136-145) Potassium Level 4.3 mmol/L (3.5-5.1) Chloride Level 102 mmol/L (98-107) Carbon Dioxide Level 33 mmol/L (21-32) H Anion Gap 7 (6-14) Blood Urea Nitrogen 15 mg/dL (7-20) Creatinine 0.6 mg/dL (0.6-1.0) Estimated GFR (Cockcroft-Gault) 99.7 BUN/Creatinine Ratio 25 (6-20) H Glucose Level 71 mg/dL (70-99) Calcium Level 9.1 mg/dL (8.5-10.1) Total Bilirubin 0.2 mg/dL (0.2-1.0) Aspartate Amino Transferase (AST) 17 U/L (15-37) Alanine Aminotransferase (ALT) 18 U/L (14-59) Alkaline Phosphatase 141 U/L (46-116) H Total Protein 7.0 g/dL (6.4-8.2) Albumin 2.5 g/dL (3.4-5.0) L Albumin/Globulin Ratio 0.6 (1.0-1.7) L Valproic Acid Level 35 mcg/mL (50-100) L Valproic Acid Last Dose Date 06/05/18 Valproic Acid Last Dose Time 2100 Current Medications: Meds: Current Medications Acetaminophen (Tylenol) 650 mg PRN Q6HRS PRN PO PAIN / TEMP Last administered on 06/06/18at 03:12; Start 05/26/18 at 15:45 Multi-Ingredient Ointment (Analgesic [place]) 1 stacy PRN QID PRN TP MUSCLE PAIN; Start 05/26/18 at 15:45 Al Hydroxide/Mg Hydroxide (Mylanta Plus Xs) 15 ml PRN AFTMEALHC PRN PO DYSPEPSIA; Start 05/26/18 at 15:45 Magnesium Hydroxide (Milk Of Magnesia) 2,400 mg PRN QHS PRN PO CONSTIPATION; Start 05/26/18 at 15:45 Clonazepam (KlonoPIN) 0.5 mg TID PO Last administered on 06/06/18at 19:36; Start 05/26/18 at 21:00 Clopidogrel Bisulfate (Plavix) 75 mg DAILY PO Last administered on 06/06/18 07 :46; Start 05/27/18 at 09:00 Digoxin (Lanoxin) 125 mcg DAILY PO Last administered on 06/06/18 07:49; Start 05/27/18 at 09:00 Furosemide (Lasix) 20 mg DAILY PO Last administered on 06/01/18 08:28; Start 05/27/18 at 09:00; Stop 06/01/18 at 14:44; Status DC Guaifenesin (Mucinex Er) 600 mg BID PO Last administered on 06/06/18 19:33; Start 05/26/18 at 21:00 Aspirin (Children'S Aspirin) 162 mg DAILYWBKFT PO Last administered on 07:48; Start 05/27/18 at 08:00 Atorvastatin Calcium (Lipitor) 10 mg QHS PO Last administered on 06/06/18 19: 36; Start 05/26/18 at 21:00 Benzocaine (Ora-Jel Maximum) 1 stacy PRN Q4HRS PRN MM MOUTHL PAIN; Start at 18:15 Divalproex Sodium (Depakote) 250 mg BID PO Last administered on 06/03/18 07:31 ; Start 05/26/18 at 21:00; Stop 06/03/18 at 11:05; Status DC Docusate Sodium (Colace) 100 mg PRN BID PRN PO CONSTIPATION; Start 05/26/18 at 17:45 Donepezil HCl (Aricept) 5 mg QHS PO Last administered on 06/06/18 19:35; Start 05/26/18 at 21:00 Fluoxetine HCl (PROzac) 40 mg DAILY PO Last administered on 05/28/18 08:02; Start 05/27/18 at 09:00; Stop 05/28/18 at 17:13; Status DC Non-Formulary Medication (Fluticasone/ Salmeterol (Advair 250-50 Diskus)) 1 each Q12HR IH ; Start 05/26/18 at 21:00; Status UNV Gabapentin (Neurontin) 300 mg BID PO Last administered on 06/06/18 19:36; Start 05/26/18 at 21:00 Levothyroxine Sodium (Synthroid) 50 mcg DAILY06 PO Last administered on 05:51; Start 05/27/18 at 06:00 Loperamide HCl (Imodium) 2 mg PRN Q6HRS PRN PO DIARRHEA Last administered on 20:48; Start 05/26/18 at 17:45 Cetirizine HCl (ZyrTEC) 5 mg DAILY PO Last administered on 06/06/18 07:46; Start 05/27/18 at 09:00 Melatonin 6 mg PRN QHS PRN PO INSOMNIA Last administered on 05/28/18 19:40; Start 05/26/18 at 18:00 Memantine (Namenda) 10 mg DAILY PO Last administered on 06/06/18 07:49; Start 05/27/18 at 09:00 Non-Formulary Medication (Menthol (Biofreeze)) 118 ml PRN BID PRN TP MUSCLE PAIN; Start 05/26/18 at 17:00; Status UNV Pantoprazole Sodium (Protonix) 40 mg DAILYAC PO Last administered on 06/06/18 07:46; Start 05/27/18 at 07:30 Ondansetron HCl (Zofran Odt) 4 mg PRN TID PRN PO NAUSEA; Start 05/26/18 at 18: 00 Quetiapine Fumarate (SEROquel) 50 mg HS PO Last administered on 06/06/18 19:33 ; Start 05/26/18 at 21:00 Sodium Chloride (Saline Mist Nasal) 1 stacy PRN TID PRN NS NASAL CONGESTION Last administered on 06/06/18 19:33; Start 05/26/18 at 18:00 Non-Formulary Medication (Tiotropium [place] (Spiriva Respimat)) 1.25 mcg DAILY IH ; Start 05/27/18 at 09:00; Status UNV Trazodone HCl (Desyrel) 50 mg HS PO Last administered on 06/06/18 19:36; Start 05/26/18 at 21:00 Multivitamins/ Minerals (I-Nab) 1 tab DAILY PO Last administered on 06/06/18 07:46; Start 05/27/18 at 09:00 Albuterol/ Ipratropium (Duoneb) 3 ml RTQID NEB Last administered on 06/06/18 21:07; Start 05/26/18 at 20:00 Budesonide (Pulmicort) 0.5 mg RTBID NEB Last administered on 06/06/18 21:07; Start 05/26/18 at 20:00 Albuterol Sulfate (Ventolin) 2.5 mg PRN Q6HRS PRN NEB SHORTNESS OF BREATH Last administered on 06/04/18 10:10; Start 05/26/18 at 18:15 Duloxetine HCl (Cymbalta) 30 mg DAILY PO Last administered on 05/31/18 07:51; Start 05/29/18 at 09:00; Stop 06/01/18 at 08:59; Status DC Duloxetine HCl (Cymbalta) 60 mg DAILY PO Last administered on 06/06/18 07:46; Start 06/01/18 at 09:00 Acetaminophen/ Hydrocodone Bitart (Lortab 5/325) 1 tab PRN Q8HRS PRN PO PAIN Last administered on 06/06/18 19:33; Start 05/30/18 at 17:00 Acyclovir (Zovirax) 1 stacy 5XDAY TP Last administered on 06/06/18 13:55; Start 05/31/18 at 14:00; Stop 06/06/18 at 15:12; Status DC Quetiapine Fumarate (SEROquel) 12.5 mg [id number] PO Last administered on 06/06/18 17:56; Start 06/01/18 at 09:00 Vitamin D (Vitamin D3) 50,000 unit WEEKLY PO Last administered on 06/01/18 16: 06; Start 06/01/18 at 14:30 Furosemide (Lasix) 40 mg DAILY PO Last administered on 06/06/18 07:46; Start 06/02/18 at 09:00 Potassium Chloride (Klor-Con) 20 meq DAILYWBKFT PO Last administered on 07:47; Start 06/02/18 at 08:00 Ferrous Sulfate (Feosol) 325 mg TIDWMEALS PO Last administered on 06/06/18 17: 56; Start 06/01/18 at 17:00 Ascorbic Acid (Vitamin C) 500 mg BID PO Last administered on 06/06/18 19:36; Start 06/01/18 at 21:00 Amoxicillin (Amoxil) 250 mg [id number] PO Last administered on 06/06/18at 19:33; Start 06/01/18 at 21:00 Lactobacillus Rhamnosus (Culturelle) 1 cap BID PO Last administered on at 19:36; Start 06/02/18 at 21:00 Divalproex Sodium (Depakote) 375 mg BID PO Last administered on 06/06/18at 19:34 ; Start 06/03/18 at 21:00 Loperamide HCl (Imodium) 2 mg PRN Q15MIN PRN PO DIARRHEA; Start 06/05/18 at 20: 45 Furosemide (Lasix) 20 mg 1X ONCE PO Last administered on 06/06/18at 13:45; Start 06/06/18 at 13:45; Stop 06/06/18 at 13:46; Status DC Active Scripts Active Reported Klor-Con M20 (Potassium Chloride) 20 Meq Tab.er.prt 20 Meq PO DAILYWBKFT Pantoprazole Sodium 40 Mg Tablet.dr 40 Mg PO DAILYAC Milk Of Magnesia (Magnesium Hydroxide) 2,400 Mg/10 Ml Oral.susp 2,400 Mg PO PRN QHS PRN Mag-Al Plus Xs Suspension (Mag Hydrox/Al Hydrox/Simeth) 30 Ml Oral.susp 15 Ml PO PRN AFTMEALHC PRN Culturelle (Lactobacillus Rhamnosus Gg) 1 Each Capsule 1 Each PO BID Duoneb 0.5-3(2.5) Mg/3 Ml (Albuterol/Ipratropium) 3 Ml Ampul.neb 3 Ml NEB QID PRN Hydrocodone-Acetamin 5-325 mg (Hydrocodone/Acetaminophen) 1 Each Tablet 1 Each PO PRN Q8HRS PRN Ferrous Sulfate 325 Mg Tablet 325 Mg PO TIDWMEALS Cymbalta (Duloxetine Hcl) 60 Mg Capsule.dr 60 Mg PO DAILY D3-50 (Cholecalciferol (Vitamin D3)) 50,000 Unit Capsule 50,000 Unit PO WEEKLY Pulmicort (Budesonide) 0.5 Mg/2 Ml Ampul.neb 0.5 Mg NEB BID Ascorbic Acid 500 Mg Tablet 500 Mg PO BID Amoxicillin 250 Mg Capsule 250 Mg PO [id number] Albuterol Sulfate Neb Soln (Albuterol Sulfate) 2.5 Mg/3 Ml Vial.neb 2.5 Mg NEB PRN Q6HRS PRN Zovirax (Acyclovir) 5 Gm Cream..g. 1 Stacy TP 5XDAY Tylenol (Acetaminophen) 325 Mg Tablet 650 Mg PO PRN Q6HRS PRN Seroquel (Quetiapine Fumarate) 25 Mg Tablet 12.5 Mg PO [id number] Cetirizine Hcl 5 Mg/5 Ml Solution 5 Mg PO DAILY Trazodone Hcl 50 Mg Tablet 50 Mg PO QHS Spiriva Respimat (Tiotropium [place]) 4 Gm Mist.inhal 1.25 Mcg IH DAILY Saline Nasal [place] (Sodium Chloride) 30 Ml [place] 1 Spr NS PRN TID PRN Seroquel (Quetiapine Fumarate) 50 Mg Tablet 50 Mg PO QHS Preservision Areds Softgel (Vit A/Vit C/Vit E/Zinc/Copper) 1 Each Capsule 1 Each PO BID Ondansetron Odt (Ondansetron) 4 Mg Tab.rapdis 4 Mg PO PRN TID PRN Prilosec Otc (Omeprazole Magnesium) 20 Mg Tablet.dr 20 Mg PO DAILY06 Loratadine 5 Mg/5 Ml Solution 5 Mg PO DAILY Loperamide (Loperamide Hcl) 2 Mg Capsule 2 Mg PO PRN Q6HRS PRN Synthroid (Levothyroxine Sodium) 50 Mcg Tablet 50 Mcg PO DAILY06 Mucinex (Guaifenesin) 600 Mg Tablet.er 600 Mg PO BID Gabapentin 600 Mg Tablet 300 Mg PO BID Furosemide 20 Mg Tablet 20 Mg PO DAILY Advair 250-50 Diskus (Fluticasone/Salmeterol) 1 Each Disk.w.dev 1 Each IH Q12HR Aricept (Donepezil Hcl) 5 Mg Tablet 5 Mg PO QHS Colace (Docusate Sodium) 100 Mg Capsule 100 Mg PO PRN BID PRN Depakote (Divalproex Sodium) 500 Mg Tablet.dr 250 Mg PO BID Digoxin 125 Mcg Tablet 125 Mcg PO DAILY Clopidogrel (Clopidogrel Bisulfate) 75 Mg Tablet 75 Mg PO DAILY Clonazepam 0.5 Mg Tablet 0.5 Mg PO TID Atorvastatin Calcium 10 Mg Tablet 10 Mg PO QHS Aspirin 81 Mg Tab.chew 162 Mg PO DAILY Anbesol (Benzocaine) 9 Gm Gel..gram. 9 Gm MM PRN Q4HRS PRN Namenda (Memantine Hcl) 10 Mg Tablet 10 Mg PO DAILY Fluoxetine Hcl 40 Mg Capsule 40 Mg PO DAILY Biofreeze (Menthol) 118 Ml Gel..ml. 118 Ml TP PRN BID PRN Melatonin 3 Mg Tablet 5 Mg PO PRN QHS PRN I have reviewed the current psychotropics carefully including drug interactions. Risk benefit ratio favors no change other than as noted in my dictated progress note. Diagnosis: Problems: (1) Anxiety disorder (2) Bipolar affective, mixed (3) Bipolar affective, mixed, sev w/ psych (4) Impulse control disorder (5) Major depressive disorder, recurrent episode LISA KEY MD Jun 06, 2018 22:42
[2018-06-07] MEDS: ACETAMINOPHEN 325 MG TABLET PO PRN (01:52)
[2018-06-07] MEDS: LEVOTHYROXINE 50 MCG TABLET PO SCH (05:28)
[2018-06-07] MEDS: IPRATRPIUM/ALBUTEROL 0.5/2.5MG 3 ML NEBU. NEB SCH ×2 (05:32→11:08)
[2018-06-07] MEDS: HYDROcodone/APAP 5/325MG 1 TAB TABLET PO PRN (06:01)
[2018-06-07 06:42] VITALS: BP 99/65
[2018-06-07] MEDS: AMOXICILLIN 250 MG CAPSULE PO SCH ×2 (08:21→13:33)
[2018-06-07] MEDS: clonazePAM 0.5 MG TABLET PO SCH ×2 (08:21→13:33)
[2018-06-07] MEDS: MULTIVITAMIN I-VITE TABLET. PO SCH (08:21)
[2018-06-07] MEDS: CETIRIZINE HCL 10 MG TABLET PO SCH (08:21)
[2018-06-07] MEDS: DIVALPROEX SODIUM 250 MG TABLET.DR. PO SCH (08:21)
[2018-06-07] MEDS: PANTOPRAZOLE 40 MG TABLET. PO SCH (08:21)
[2018-06-07] MEDS: MEMANTINE 10 MG TABLET. PO SCH (08:22)
[2018-06-07] MEDS: LACTOBACILLUS RHAMNOSUS GG 1 CAPSULE. PO SCH (08:22)
[2018-06-07] MEDS: CLOPIDOGREL BISULFATE 75 MG TABLET PO SCH (08:22)
[2018-06-07] MEDS: POTASSIUM CHLORIDE 20 MEQ TABLET.ER. PO SCH (08:22)
[2018-06-07] MEDS: GABAPENTIN 300 MG CAPSULE. PO SCH (08:22)
[2018-06-07] MEDS: ASPIRIN 81 MG TAB.CHEW PO SCH (08:22)
[2018-06-07 08:23] VITALS: BP 99/65
[2018-06-07] MEDS: FERROUS SULFATE 325 MG TABLET. PO SCH ×2 (08:23→13:33)
[2018-06-07] MEDS: DIGOXIN 125 MCG TABLET PO SCH (08:23)
[2018-06-07] MEDS: ASCORBIC ACID 500 MG TABLET PO SCH (08:23)
[2018-06-07] MEDS: QUEtiapine 25 MG TABLET. PO SCH (08:23)
[2018-06-07] MEDS: SODIUM CHLORIDE 0.65% NASAL SPRAY 45ML BOTTLE. NS PRN (08:23)
[2018-06-07] MEDS: FUROSEMIDE 20 MG TABLET PO SCH (08:23)
[2018-06-07] MEDS: DULoxetine HCL 60 MG CAPSULE.DR PO SCH (08:23)
[2018-06-07] MEDS: BUDESONIDE 0.5 MG/2 ML NEBU NEB SCH (11:08)
--- NOTE | 2018-06-07 20:00 | PN ---
DATE: 06/04/2018 PSYCHIATRIC PROGRESS NOTE This late entry 06/04/2018 covers elements not covered in my initial note. SUBJECTIVE: I met with the patient in the evening. The patient slept 6-1/4 hours previous night. She remains somewhat anxious, talked about having bed bugs in her room at [place] where she has resided for about 2 years. Processed this with her. REVIEW OF SYSTEMS: Impaired ambulation, in wheelchair. No CV, , pulmonary, eye, ENT system symptoms on review. MENTAL STATUS EXAM: The patient is reasonably oriented. Speech is coherent, has some latency. Abstraction fair, computation impaired, language function intact. She does have a UTI and is on Amoxil, is having some diarrhea. LABORATORY DATA: Reviewed. IMPRESSION: Unchanged from initial note. PLAN: Valproic acid level subtherapeutic at 28, we will increase Depakote to 375 mg b.i.d. Check CBC, CMP, valproic acid level in 3 days. Rest unchanged. LISA KEY MD DR: ADELFO/diana JOB#: [id number] / [id number]
--- NOTE | 2018-06-07 21:37 | PN ---
DATE: 06/05/2018 PSYCHIATRIC PROGRESS NOTE This late entry 06/05/2018 covers elements not covered in my initial note. SUBJECTIVE: I met with the patient in the evening. The patient slept 7-1/2 hours previous night. I met with her at length in her room. She has had some diarrhea and we started her on some Imodium p.r.n. Diarrhea is probably consequent to the Amoxil for her UTI. REVIEW OF SYSTEMS: Ambulation impaired, in wheelchair. No CV, , pulmonary, eye system symptoms on review. MENTAL STATUS EXAM: Reasonably oriented. Speech is coherent, abstraction fair, computation impaired, language function intact. Mood and affect still somewhat dysphoric, anxious, but improved. LABORATORY DATA: Reviewed. IMPRESSION: Unchanged from initial note including urinary tract infection. PLAN: No change from initial note. MAN Amberly KEY MD DR: ADELFO/diana JOB#: [id number] / [id number]
--- NOTE | 2018-06-07 21:39 | PN ---
DATE: 06/06/2018 PSYCHIATRIC PROGRESS NOTE This late entry 06/06/2018 covers elements not covered in my initial note. SUBJECTIVE: I met with the patient in the evening at length in her room. The patient slept 7-1/2 hours previous night. She has been less anxious, diarrhea is better on the Imodium. REVIEW OF SYSTEMS: Ambulation impaired, in wheelchair. No CV, , pulmonary, eye system symptoms on review. MENTAL STATUS EXAM: The patient is reasonably oriented. Speech is coherent, abstraction fair, computation impaired, language function intact. Attention span short. She was complaining of feeling cold and nursing staff are going to adjust her room temperature. LABORATORY DATA: Reviewed. IMPRESSION: Unchanged from initial note. PLAN: No change from initial note. MAN Amberly KEY MD DR: ADELFO/diana JOB#: [id number] / [id number]
--- NOTE | 2018-06-07 23:01 | PDOC ---
Exam Note: Efren Note: Please also refer to the separate dictated note~for this date of service dictated separately.~Patient seen individually. Discussed the patient with Nursing staff reviewed the chart.~Reviewed interim history and current functioning. Reviewed vital signs,~Labs/ Radiology~and current medications noted below. Continue current treatment with the changes noted in the dictated addendum note Assessment: Vital Signs: Vital Signs Date Time Temp Pulse Resp B/P (MAP) Pulse Ox O2 Delivery O2 Flow Rate FiO2 06/07/18 11:00 99 Room Air 06/07/18 08:23 86 99/65 06/07/18 06:42 97.7 18 06/07/18 05:34 2.0 I&O Intake and Output 06/07/18 06:59 Intake Total 840 ml Balance 840 ml Intake Oral 840 ml # Voids 1 Current Medications: Meds: Current Medications Acetaminophen (Tylenol) 650 mg PRN Q6HRS PRN PO PAIN / TEMP Last administered on 06/07/18at 01:52; Start 05/26/18 at 15:45; Stop 06/07/18 at 15:15; Status DC Multi-Ingredient Ointment (Analgesic [place]) 1 elvin PRN QID PRN TP MUSCLE PAIN Last administered on 06/07/18at 01:52; Start 05/26/18 at 15:45; Stop 06/07/18 at 15 :15; Status DC Al Hydroxide/Mg Hydroxide (Mylanta Plus Xs) 15 ml PRN AFTMEALHC PRN PO DYSPEPSIA; Start 05/26/18 at 15:45; Stop 06/07/18 at 15:15; Status DC Magnesium Hydroxide (Milk Of Magnesia) 2,400 mg PRN QHS PRN PO CONSTIPATION; Start 05/26/18 at 15:45; Stop 06/07/18 at 15:15; Status DC Clonazepam (KlonoPIN) 0.5 mg TID PO Last administered on 06/07/18at 13:33; Start 05/26/18 at 21:00; Stop 06/07/18 at 15:15; Status DC Clopidogrel Bisulfate (Plavix) 75 mg DAILY PO Last administered on 06/07/18at 08: 22; Start 05/27/18 at 09:00; Stop 06/07/18 at 15:15; Status DC Digoxin (Lanoxin) 125 mcg DAILY PO Last administered on 06/06/18 07:49; Start 05/27/18 at 09:00; Stop 06/07/18 at 15:15; Status DC Furosemide (Lasix) 20 mg DAILY PO Last administered on 06/01/18 08:28; Start 05/27/18 at 09:00; Stop 06/01/18 at 14:44; Status DC Guaifenesin (Mucinex Er) 600 mg BID PO Last administered on 06/07/18 08:22; Start 05/26/18 at 21:00; Stop 06/07/18 at 15:15; Status DC Aspirin (Children'S Aspirin) 162 mg DAILYWBKFT PO Last administered on 08:22; Start 05/27/18 at 08:00; Stop 06/07/18 at 15:15; Status DC Atorvastatin Calcium (Lipitor) 10 mg QHS PO Last administered on 06/06/18 19: 36; Start 05/26/18 at 21:00; Stop 06/07/18 at 15:15; Status DC Benzocaine (Ora-Jel Maximum) 1 elvin PRN Q4HRS PRN MM MOUTHL PAIN; Start at 18:15; Stop 06/07/18 at 15:15; Status DC Divalproex Sodium (Depakote) 250 mg BID PO Last administered on 06/03/18 07:31 ; Start 05/26/18 at 21:00; Stop 06/03/18 at 11:05; Status DC Docusate Sodium (Colace) 100 mg PRN BID PRN PO CONSTIPATION; Start 05/26/18 at 17:45; Stop 06/07/18 at 15:15; Status DC Donepezil HCl (Aricept) 5 mg QHS PO Last administered on 06/06/18at 19:35; Start 05/26/18 at 21:00; Stop 06/07/18 at 15:15; Status DC Fluoxetine HCl (PROzac) 40 mg DAILY PO Last administered on 05/28/18 08:02; Start 05/27/18 at 09:00; Stop 05/28/18 at 17:13; Status DC Non-Formulary Medication (Fluticasone/ Salmeterol (Advair 250-50 Diskus)) 1 each Q12HR IH ; Start 05/26/18 at 21:00; Status UNV Gabapentin (Neurontin) 300 mg BID PO Last administered on 06/07/18 08:22; Start 05/26/18 at 21:00; Stop 06/07/18 at 15:15; Status DC Levothyroxine Sodium (Synthroid) 50 mcg DAILY06 PO Last administered on 05:28; Start 05/27/18 at 06:00; Stop 06/07/18 at 15:15; Status DC Loperamide HCl (Imodium) 2 mg PRN Q6HRS PRN PO DIARRHEA Last administered on 20:48; Start 05/26/18 at 17:45; Stop 06/07/18 at 15:15; Status DC Cetirizine HCl (ZyrTEC) 5 mg DAILY PO Last administered on 06/07/18 08:21; Start 05/27/18 at 09:00; Stop 06/07/18 at 15:15; Status DC Melatonin 6 mg PRN QHS PRN PO INSOMNIA Last administered on 05/28/18 19:40; Start 05/26/18 at 18:00; Stop 06/07/18 at 15:15; Status DC Memantine (Namenda) 10 mg DAILY PO Last administered on 06/07/18 08:22; Start 05/27/18 at 09:00; Stop 06/07/18 at 15:15; Status DC Non-Formulary Medication (Menthol (Biofreeze)) 118 ml PRN BID PRN TP MUSCLE PAIN; Start 05/26/18 at 17:00; Status UNV Pantoprazole Sodium (Protonix) 40 mg DAILYAC PO Last administered on 06/07/18 08:21; Start 05/27/18 at 07:30; Stop 06/07/18 at 15:15; Status DC Ondansetron HCl (Zofran Odt) 4 mg PRN TID PRN PO NAUSEA; Start 05/26/18 at 18: 00; Stop 06/07/18 at 15:15; Status DC Quetiapine Fumarate (SEROquel) 50 mg HS PO Last administered on 06/06/18at 19:33 ; Start 05/26/18 at 21:00; Stop 06/07/18 at 15:15; Status DC Sodium Chloride (Saline Mist Nasal) 1 elvin PRN TID PRN NS NASAL CONGESTION Last administered on 06/07/18 08:23; Start 05/26/18 at 18:00; Stop 06/07/18 at 15:15; Status DC Non-Formulary Medication (Tiotropium [place] (Spiriva Respimat)) 1.25 mcg DAILY IH ; Start 05/27/18 at 09:00; Status UNV Trazodone HCl (Desyrel) 50 mg HS PO Last administered on 06/06/18at 19:36; Start 05/26/18 at 21:00; Stop 06/07/18 at 15:15; Status DC Multivitamins/ Minerals (I-Nba) 1 tab DAILY PO Last administered on 06/07/18at 08:21; Start 05/27/18 at 09:00; Stop 06/07/18 at 15:15; Status DC Albuterol/ Ipratropium (Duoneb) 3 ml RTQID NEB Last administered on 06/07/18at 11 :08; Start 05/26/18 at 20:00; Stop 06/07/18 at 15:15; Status DC Budesonide (Pulmicort) 0.5 mg RTBID NEB Last administered on 06/07/18at 11:08; Start 05/26/18 at 20:00; Stop 06/07/18 at 15:15; Status DC Albuterol Sulfate (Ventolin) 2.5 mg PRN Q6HRS PRN NEB SHORTNESS OF BREATH Last administered on 06/04/18at 10:10; Start 05/26/18 at 18:15; Stop 06/07/18 at 15:15 ; Status DC Duloxetine HCl (Cymbalta) 30 mg DAILY PO Last administered on 05/31/18at 07:51; Start 05/29/18 at 09:00; Stop 06/01/18 at 08:59; Status DC Duloxetine HCl (Cymbalta) 60 mg DAILY PO Last administered on 06/07/18 08:23; Start 06/01/18 at 09:00; Stop 06/07/18 at 15:15; Status DC Acetaminophen/ Hydrocodone Bitart (Lortab 5/325) 1 tab PRN Q8HRS PRN PO PAIN Last administered on 06/07/18 06:01; Start 05/30/18 at 17:00; Stop 06/07/18 at 15 :15; Status DC Acyclovir (Zovirax) 1 elvin 5XDAY TP Last administered on 06/06/18at 13:55; Start 05/31/18 at 14:00; Stop 06/06/18 at 15:12; Status DC Quetiapine Fumarate (SEROquel) 12.5 mg BID94 PO Last administered on 06/07/18 08:23; Start 06/01/18 at 09:00; Stop 06/07/18 at 15:15; Status DC Vitamin D (Vitamin D3) 50,000 unit WEEKLY PO Last administered on 06/01/18at 16: 06; Start 06/01/18 at 14:30; Stop 06/07/18 at 15:15; Status DC Furosemide (Lasix) 40 mg DAILY PO Last administered on 06/07/18 08:23; Start at 09:00; Stop 06/07/18 at 15:15; Status DC Potassium Chloride (Klor-Con) 20 meq DAILYWBKFT PO Last administered on 08:22; Start 06/02/18 at 08:00; Stop 06/07/18 at 15:15; Status DC Ferrous Sulfate (Feosol) 325 mg TIDWMEALS PO Last administered on 06/07/18 13: 33; Start 06/01/18 at 17:00; Stop 06/07/18 at 15:15; Status DC Ascorbic Acid (Vitamin C) 500 mg BID PO Last administered on 06/07/18 08:23; Start 06/01/18 at 21:00; Stop 06/07/18 at 15:15; Status DC Amoxicillin (Amoxil) 250 mg [id number] PO Last administered on 06/07/18 13:33; Start 06/01/18 at 21:00; Stop 06/07/18 at 15:15; Status DC Lactobacillus Rhamnosus (Culturelle) 1 cap BID PO Last administered on 08:22; Start 06/02/18 at 21:00; Stop 06/07/18 at 15:15; Status DC Divalproex Sodium (Depakote) 375 mg BID PO Last administered on 06/07/18at 08:21 ; Start 06/03/18 at 21:00; Stop 06/07/18 at 15:15; Status DC Loperamide HCl (Imodium) 2 mg PRN Q15MIN PRN PO DIARRHEA; Start 06/05/18 at 20: 45; Stop 06/07/18 at 15:15; Status DC Furosemide (Lasix) 20 mg 1X ONCE PO Last administered on 06/06/18at 13:45; Start 06/06/18 at 13:45; Stop 06/06/18 at 13:46; Status DC Active Scripts Active Reported Klor-Con M20 (Potassium Chloride) 20 Meq Tab.er.prt 20 Meq PO DAILYWBKFT Milk Of Magnesia (Magnesium Hydroxide) 2,400 Mg/10 Ml Oral.susp 2,400 Mg PO PRN QHS PRN Mag-Al Plus Xs Suspension (Mag Hydrox/Al Hydrox/Simeth) 30 Ml Oral.susp 15 Ml PO PRN AFTMEALHC PRN Culturelle (Lactobacillus Rhamnosus Gg) 1 Each Capsule 1 Each PO BID Hydrocodone-Acetamin 5-325 mg (Hydrocodone/Acetaminophen) 1 Each Tablet 1 Each PO PRN Q8HRS PRN Ferrous Sulfate 325 Mg Tablet 325 Mg PO TIDWMEALS Cymbalta (Duloxetine Hcl) 60 Mg Capsule.dr 60 Mg PO DAILY D3-50 (Cholecalciferol (Vitamin D3)) 50,000 Unit Capsule 50,000 Unit PO WEEKLY Ascorbic Acid 500 Mg Tablet 500 Mg PO BID Amoxicillin 250 Mg Capsule 250 Mg PO ULN500 Tylenol (Acetaminophen) 325 Mg Tablet 650 Mg PO PRN Q6HRS PRN Seroquel (Quetiapine Fumarate) 25 Mg Tablet 12.5 Mg PO BID94 Cetirizine Hcl 5 Mg/5 Ml Solution 5 Mg PO DAILY Trazodone Hcl 50 Mg Tablet 50 Mg PO QHS Spiriva Respimat (Tiotropium [place]) 4 Gm Mist.inhal 1.25 Mcg IH DAILY Saline Nasal [place] (Sodium Chloride) 30 Ml [place] 1 Spr NS PRN TID PRN Seroquel (Quetiapine Fumarate) 50 Mg Tablet 50 Mg PO QHS Preservision Areds Softgel (Vit A/Vit C/Vit E/Zinc/Copper) 1 Each Capsule 1 Each PO BID Ondansetron Odt (Ondansetron) 4 Mg Tab.rapdis 4 Mg PO PRN TID PRN Prilosec Otc (Omeprazole Magnesium) 20 Mg Tablet.dr 20 Mg PO DAILY06 Loperamide (Loperamide Hcl) 2 Mg Capsule 2 Mg PO PRN Q6HRS PRN Synthroid (Levothyroxine Sodium) 50 Mcg Tablet 50 Mcg PO DAILY06 Mucinex (Guaifenesin) 600 Mg Tablet.er 600 Mg PO BID Gabapentin 600 Mg Tablet 300 Mg PO BID Furosemide 20 Mg Tablet 40 Mg PO DAILY Advair 250-50 Diskus (Fluticasone/Salmeterol) 1 Each Disk.w.dev 1 Each IH Q12HR Aricept (Donepezil Hcl) 5 Mg Tablet 5 Mg PO QHS Colace (Docusate Sodium) 100 Mg Capsule 100 Mg PO PRN BID PRN Depakote (Divalproex Sodium) 500 Mg Tablet.dr 375 Mg PO BID Digoxin 125 Mcg Tablet 125 Mcg PO DAILY Clopidogrel (Clopidogrel Bisulfate) 75 Mg Tablet 75 Mg PO DAILY Clonazepam 0.5 Mg Tablet 0.5 Mg PO TID Atorvastatin Calcium 10 Mg Tablet 10 Mg PO QHS Aspirin 81 Mg Tab.chew 162 Mg PO DAILY Anbesol (Benzocaine) 9 Gm Gel..gram. 9 Gm MM PRN Q4HRS PRN Namenda (Memantine Hcl) 10 Mg Tablet 10 Mg PO DAILY Biofreeze (Menthol) 118 Ml Gel..ml. 118 Ml TP PRN BID PRN Melatonin 3 Mg Tablet 6 Mg PO PRN QHS PRN I have reviewed the current psychotropics carefully including drug interactions. Risk benefit ratio favors no change other than as noted in my dictated progress note. Diagnosis: Problems: (1) Anxiety disorder (2) Bipolar affective, mixed (3) Bipolar affective, mixed, sev w/ psych (4) Impulse control disorder (5) Major depressive disorder, recurrent episode LISA KEY MD Jun 07, 2018 23:01
--- NOTE | 2018-06-08 17:38 | DS ---
DATE OF DISCHARGE: 06/07/2018 DISCHARGE SUMMARY/PSYCHIATRIC PROGRESS NOTE This late entry 06/07/2018 covers elements not covered in my initial note. REASON FOR ADMISSION: Please refer to the admission history for details. Briefly, the patient is a 68-year-old female referred to us from [facility] and [facility] on account of worsening symptoms of depression within the context of her bipolar disorder. She was noted to be depressed, hopeless, helpless, worthless and details noted in my admission assessment. SIGNIFICANT FINDINGS AND CLINICAL COURSE: Following admission, the patient was seen individually daily by myself from a psychiatric standpoint, medical followup with Dr. Boateng. She was noted to be anxious with marked mood lability, depressed, cognitively reasonably intact. Adjustments were made in her psychotropics. She seemed to respond to a combination of Cymbalta 60 mg a day, Namenda 10 mg daily, Klonopin 0.5 mg t.i.d., Depakote 375 mg b.i.d. with repeat labs level awaited with increased dosage. She was also on Aricept 5 mg a day, Neurontin 300 b.i.d., Seroquel 50 mg at bedtime, trazodone 50 mg at bedtime, Seroquel 12.5 mg 0900, 1700. She did develop UTI and this was treated on Amoxil prior to discharge 06/07/2018. REVIEW OF SYSTEMS: Ambulation impaired, in wheelchair, shortness of breath, on O2 supplements. No CV, GI, system symptoms on review. MENTAL STATUS EXAM: Reasonably oriented. Speech is coherent, has some latency. Abstraction fair, computation impaired, language function intact, attention span short. Mood and affect was improved. No suicidal ideation at discharge. CONDITION AT DISCHARGE: Improved. FINAL DIAGNOSES: Bipolar 1 disorder, depressed, in partial remission; anxiety disorder, unspecified. Rest as above, status post urinary tract infection. DISCHARGE MEDICATIONS: Please refer to the MRAD. DISCHARGE INSTRUCTIONS: Outpatient psychiatric and medical followup at the residential. Time for discharge day management greater than 30 minutes. MAN Amberly KEY MD DR: ADELFO/diana JOB#: [id number] / [id number]
== END 2018-06-07 15:10 | DRG 885 ==
LOC: GEROPSY 14:53
PROVIDERS: ADMIT Psychiatry & Neurology Psychiatry; ATTEND Psychiatry & Neurology Psychiatry
DX: F31.64 Bipolar disorder, current episode mixed, severe, with psychotic features (principal); I50.33 Acute on chronic diastolic (congestive) heart failure; E43 Unspecified severe protein-calorie malnutrition; E46 Unspecified protein-calorie malnutrition; I13.0 Hypertensive heart and chronic kidney disease with heart failure and stage 1 through stage 4 chronic kidney disease, or unspecified chronic kidney disease; R45.851 Suicidal ideations; I42.9 Cardiomyopathy, unspecified; F41.9 Anxiety disorder, unspecified; F31.60 Bipolar disorder, current episode mixed, unspecified; F63.9 Impulse disorder, unspecified; N18.3 Chronic kidney disease, stage 3 (moderate); E78.2 Mixed hyperlipidemia; D50.9 Iron deficiency anemia, unspecified; F41.1 Generalized anxiety disorder; F42.9 Obsessive-compulsive disorder, unspecified; F43.10 Post-traumatic stress disorder, unspecified; G47.33 Obstructive sleep apnea (adult) (pediatric); G89.29 Other chronic pain; I48.0 Paroxysmal atrial fibrillation; J44.9 Chronic obstructive pulmonary disease, unspecified; K21.9 Gastro-esophageal reflux disease without esophagitis; M17.11 Unilateral primary osteoarthritis, right knee; Z79.82 Long term (current) use of aspirin; Z82.49 Family history of ischemic heart disease and other diseases of the circulatory system; Z82.5 Family history of asthma and other chronic lower respiratory diseases; Z86.73 Personal history of transient ischemic attack (TIA), and cerebral infarction without residual deficits; Z87.440 Personal history of urinary (tract) infections; Z87.891 Personal history of nicotine dependence; Z98.84 Bariatric surgery status; E66.01 Morbid (severe) obesity due to excess calories; Z68.29 Body mass index [BMI] 29.0-29.9, adult
CPT/HCPCS: 36415; 71045; 76830; 76856; 80053; 80061; 80162; 80164; 81001; 82306; 83036; 83540; 83550; 83735; 84436; 84443; 84480; 85025; 86592; 87086; 87186; 93005; 94640; J7613; J7620; J7626; 97110; 97116; 97530